=== PATIENT | male | born 1980 | race Hispanic/Latino ===

== ENCOUNTER 2018-01-03 20:45 | Emergency (ER) | payer BC ==
[2018-01-03] MEDS ORDERED: MAGNE/ALUM HYDROXD 30 ML UCUP ONE (21:15)
[2018-01-03] MEDS ORDERED: MORPHINE 4 MG/ML SYR ONE (21:16)
[2018-01-03] MEDS ORDERED: NA CHLORIDE 0.9% 1,000 ML ONE (21:16)
[2018-01-03] MEDS ORDERED: LIDOCAINE VISCOUS 2% SOLN 15 ML UDC ONE (21:16)
[2018-01-03] MEDS ORDERED: ONDANSETRON 4 MG/2 ML VIAL ONE (21:16)
[2018-01-03] MEDS ORDERED: FAMOTIDINE 20 MG/2 ML VIAL IV ONE (21:17)
[2018-01-03 21:45] LABS: Absolute Lymphocytes (CBC) 3.5 K/uL (0.7-4.9); Absolute Monocytes 0.8 K/uL (0.1-1.3); Absolute Neutrophil 5.8 K/uL (1.8-8.0); Basophils % 0.8 % (0-1.3); Eosinophils % 2.4 % (0-4.4); Hematocrit 48.9 % (39.6-49.0); Lymphocytes % 33.9 % (15.3-44.8); MCH 30.8 pg (27.0-35.0); MCV 89.1 fL (80-100); MPV 9.8 fL (7.6-11.3); Monocytes % 7.4 % (3.3-12.3); RBC Red Blood Cell Count 5.49 M/uL (4.33-5.43)
[2018-01-03 21:46] LABS: Bicarbonate 28 mEq/L (21-31); Glucose Level 130 mg/dL (65-120); Lipase 32 U/L (22-51); Potassium 3.8 mEq/L (3.6-5.0); Sodium Level 139 mEq/L (135-145)
[2018-01-03 21:53] LABS: ALT/SGPT 42 IU/L (10-60); AST/SGOT 54 IU/L (10-42); Albumin 3.8 g/dL (3.2-5.5); Alkaline Phosphatase 79 IU/L (42-121); Amylase Level 160 U/L (28-100); BUN Blood Urea Nitrogen 12 mg/dL (6-20); Bilirubin Direct 0.2 mg/dL (0-0.2); Bilirubin Total 0.8 mg/dL (0.3-1.2); Protein, Total 7.7 g/dL (6.0-8.3)
--- NOTE | 2018-01-03 21:53 | ER ---
Nurse's Notes [facility] Name: Drew Jc Age: 37 yrs Sex: Male : 1980 Arrival Date: 01/03/2018 Time: 20:50 Bed 23 Private MD: Diagnosis: Epigastric pain Presentation: 01/03 20:58 Presenting complaint: Patient states: Upper abdominal pain radiating to back that has lp1 worsened; Has been seeing Dr. Chowdhury, had colonoscopy and endoscopy recently and told lipase was elevated but to stay on clear liquid diet. Transition of care: patient was not received from another setting of care. Onset of symptoms was January 03, 2018. Risk Assessment: Do you want to hurt yourself or someone else? Patient reports no desire to harm self or others. Initial Sepsis Screen: Does the patient meet any 2 criteria? No. Patient's initial sepsis screen is negative. Does the patient have a suspected source of infection? No. Patient's initial sepsis screen is negative. Care prior to arrival: None. 20:58 Method Of Arrival: Ambulatory lp1 20:58 Acuity: COCO 3 lp1 21:03 Care prior to arrival: Medication(s) given: Simethicone 2 tabs. kr2 Historical: - Allergies: 21:02 No Known Allergies; lp1 - Home Meds: 21:02 Avapro 300 mg Oral tab 1 tab once daily [Active]; omeprazole 40 mg Oral cpDR 1 cap once lp1 daily [Active]; Synthroid 88 mcg Oral tab 1 tab once daily [Active]; metformin 750 mg Oral Tb24 1 tab once daily [Active]; Toprol XL 100 mg Oral Tb24 nightly [Active]; - PMHx: 21:02 Hypertension; Hypothyroidism; Pancreatitis; lp1 21:02 Diabetes - NIDDM; lp1 - PSHx: 21:02 Tonsillectomy; Cholecystectomy; Appendectomy; lp1 - Immunization history:: Adult Immunizations up to date. - Social history:: Patient/guardian denies using alcohol, street drugs, IV drugs, The patient lives with family, with spouse, Smoking status: Patient/guardian denies using tobacco. - Ebola Screening: : No symptoms or risks identified at this time. - Family history:: not pertinent. Screenin:02 Abuse screen: Denies threats or abuse. Denies injuries from another. Nutritional lp1 screening: No deficits noted. Tuberculosis screening: No symptoms or risk factors identified. Fall Risk None identified. Assessment: 21:05 General: Appears in no apparent distress. uncomfortable, obese, well groomed, well kr2 developed, well nourished, Behavior is calm, cooperative, appropriate for age. Pain: Complains of pain in epigastric area, right upper quadrant and left upper quadrant Pain radiates to left subscapular area, right subscapular area and thoracic area Pain currently is 8 out of 10 on a pain scale. Quality of pain is described as dull, sharp, Pain began gradually, Is continuous, Alleviated by nothing. Neuro: Level of Consciousness is awake, alert, obeys commands, Oriented to person, place, time, situation, Appropriate for age. Cardiovascular: Capillary refill < 3 seconds in bilateral fingers Patient's skin is warm and dry. Respiratory: Airway is patent Respiratory effort is even, unlabored, Respiratory pattern is regular, symmetrical. GI: Abdomen is round non-distended, Bowel sounds present X 4 quads. Abd is soft X 4 quads Abdomen is tender to palpation in right lower quadrant Reports history of pancreatitis-6 years ago. : Urine is clear. EENT: Oral mucosa is moist. Derm: Skin is intact, is healthy with good turgor, Skin is pink, warm \T\ dry. Musculoskeletal: Circulation, motion, and sensation intact. Vital Signs: 21:02 BP 197 / 97; Pulse 80; Resp 18; Temp 98.1(O); Pulse Ox 97% on R/A; Weight 136.08 kg; lp1 Height 5 ft. 9 in. (175.26 cm); Pain 8/10; 21:48 BP 147 / 76; Pulse 71; Resp 16; Pulse Ox 96% on R/A; kr2 21:02 Body Mass Index 44.30 (136.08 kg, 175.26 cm) lp1 ED Course: 20:50 Patient arrived in ED. al2 21:00 Triage completed. lp1 21:00 Connie Childs RN is Primary Nurse. kr2 21:00 Arm band placed on right wrist. lp1 21:01 Case Madison MD is Attending Physician. ma2 21:07 Patient has correct armband on for positive identification. Bed in low position. Call kr2 light in reach. Pulse ox on. NIBP on. Door closed. Verbal reassurance given. Head of bed elevated. 21:20 Inserted saline lock: 22 gauge in right antecubital area, using aseptic technique. kr2 Blood collected. 21:25 Flushed right antecubital saline lock with 2 ml normal saline IV discontinued, intact, kr2 bleeding controlled, No redness/swelling at site. Pressure dressing applied, Patient complained of pain with NS flush. 21:30 Inserted saline lock: 22 gauge in left antecubital area, using aseptic technique. IV kr2 with good blood return, Flushed left antecubital with 2 ml normal saline. 22:17 No provider procedures requiring assistance completed. rk2 Administered Medications: 21:35 Drug: Zofran 4 mg Route: IVP; Site: left antecubital; kr2 22:15 Follow up: Response: No adverse reaction rk2 21:35 Drug: Pepcid 10 mg Route: IVP; Site: left antecubital; kr2 22:15 Follow up: Response: No adverse reaction rk2 21:35 Drug: GI Cocktail without - (Maalox Suspension 30 ml, Lidocaine Liquid 2 % 15 kr2 ml) Route: PO; 22:15 Follow up: Response: No adverse reaction rk2 21:36 Drug: NS 0.9% 1000 ml Route: IV; Rate: 1 bolus; Site: left antecubital; kr2 22:16 Follow up: Response: No adverse reaction; IV Status: Completed infusion rk2 21:36 Drug: morphine 4 mg Route: IVP; Site: left antecubital; kr2 22:16 Follow up: Response: No adverse reaction rk2 Outcome: 21:52 Discharge ordered by . rishi 22:17 Discharged to home ambulatory. rk2 22:17 Condition: good 22:17 Discharge instructions given to patient, Prescriptions given X 1. 22:17 Patient left the ED. rk2 Signatures: Lara Ashby RN RN lp1 Connie Childs RN RN kr2 Zena Godoy Mohammad, MD MD ma2 Tasha Reddy RN RN rk2 Corrections: (The following items were deleted from the chart) 21:35 21:35 Pepcid 10 mg IVP in right antecubital kr2 kr2
--- NOTE | 2018-01-03 21:53 | EDPHYS ---
Physician Documentation [facility] Name: Drew Jc Age: 37 yrs Sex: Male : 1980 Arrival Date: 01/03/2018 Time: 20:50 Bed 23 Private MD: ED Physician Case Madison HPI: 01/03 21:10 This 37 yrs old Male presents to ER via Ambulatory with complaints of ma2 Abdominal Pain, Nausea, Back Pain. 21:10 The patient presents to the emergency department with nausea, vomiting, abdominal pain. ma2 Onset: The symptoms/episode began/occurred gradually, 2 day(s) ago. Possible causes: hx of alcoholic pancreatitis, he quit drinking few months ago. Associated signs and symptoms: Pertinent negatives: anorexia, belching, dysuria, flatulence, GI bleeding, hematuria, nausea, vomiting. Severity of symptoms: At their worst the symptoms were severe in the emergency department the symptoms are unchanged. The patient has experienced similar episodes in the past. Historical: - Allergies: 21:02 No Known Allergies; lp1 - Home Meds: 21:02 Avapro 300 mg Oral tab 1 tab once daily [Active]; omeprazole 40 mg Oral cpDR 1 cap once lp1 daily [Active]; Synthroid 88 mcg Oral tab 1 tab once daily [Active]; metformin 750 mg Oral Tb24 1 tab once daily [Active]; Toprol XL 100 mg Oral Tb24 nightly [Active]; - PMHx: 21:02 Hypertension; Hypothyroidism; Pancreatitis; lp1 21:02 Diabetes - NIDDM; lp1 - PSHx: 21:02 Tonsillectomy; Cholecystectomy; Appendectomy; lp1 - Immunization history:: Adult Immunizations up to date. - Social history:: Patient/guardian denies using alcohol, street drugs, IV drugs, The patient lives with family, with spouse, Smoking status: Patient/guardian denies using tobacco. - Ebola Screening: : No symptoms or risks identified at this time. - Family history:: not pertinent. ROS: 21:10 Abdomen/GI: Positive for abdominal pain. ma2 21:10 All other systems are negative. 21:53 Neck: Negative for injury, pain, and swelling. ma2 Exam: 21:10 Constitutional: This is a well developed, well nourished patient who is awake, alert, ma2 and in no acute distress. Head/Face: Normocephalic, atraumatic. Cardiovascular: Regular rate and rhythm with a normal S1 and S2. No gallops, murmurs, or rubs. Normal PMI, no JVD. No pulse deficits. Respiratory: Lungs have equal breath sounds bilaterally, clear to auscultation and percussion. No rales, rhonchi or wheezes noted. No increased work of breathing, no retractions or nasal flaring. Abdomen/GI: Soft, non-tender, with normal bowel sounds. No distension or tympany. No guarding or rebound. No evidence of tenderness throughout. Male : Normal genitalia with no discharge or lesions. MS/ Extremity: Pulses equal, no cyanosis. Neurovascular intact. Full, normal range of motion. Neuro: Awake and alert, GCS 15, oriented to person, place, time, and situation. Cranial nerves II-XII grossly intact. Motor strength 5/5 in all extremities. Sensory grossly intact. Cerebellar exam normal. Normal gait. Psych: Awake, alert, with orientation to person, place and time. Behavior, mood, and affect are within normal limits. Vital Signs: 21:02 BP 197 / 97; Pulse 80; Resp 18; Temp 98.1(O); Pulse Ox 97% on R/A; Weight 136.08 kg; lp1 Height 5 ft. 9 in. (175.26 cm); Pain 8/10; 21:48 BP 147 / 76; Pulse 71; Resp 16; Pulse Ox 96% on R/A; kr2 21:02 Body Mass Index 44.30 (136.08 kg, 175.26 cm) lp1 MDM: 21:01 Patient medically screened. ma2 21:10 Differential diagnosis: Nonspecific abd pain, gastritis, pancreatitis, viral ma2 gastroenteritis, gastroenteritis. 21:51 Data reviewed: vital signs, nurses notes, lab test result(s). Counseling: I had a ma2 detailed discussion with the patient and/or guardian regarding: the historical points, exam findings, and any diagnostic results supporting the discharge/admit diagnosis, the presence of at least one elevated blood pressure reading (>120/80) during this emergency department visit, lab results, the need for outpatient follow up. Medication response: pepcid. Response to treatment: the patient's symptoms have resolved after treatment. 01/03 21:09 Order name: Amylase, Serum ma2 01/03 21:09 Order name: Basic Metabolic Panel [facility] 01/03 21:09 Order name: CBC with Diff; Complete Time: 21:50 [facility] 01/03 21:09 Order name: Creatinine for Radiology; Complete Time: 21:50 [facility] 01/03 21:09 Order name: Hepatic Function [facility] 01/03 21:09 Order name: Lipase [facility] 01/03 21:09 Order name: IV Saline Lock; Complete Time: 21:35 [facility] 01/03 21:09 Order name: Labs collected and sent; Complete Time: 21:35 [facility] Administered Medications: 21:35 Drug: Zofran 4 mg Route: IVP; Site: left antecubital; kr2 22:15 Follow up: Response: No adverse reaction rk2 21:35 Drug: Pepcid 10 mg Route: IVP; Site: left antecubital; kr2 22:15 Follow up: Response: No adverse reaction 2 21:35 Drug: GI Cocktail without - (Maalox Suspension 30 ml, Lidocaine Liquid 2 % 15 kr2 ml) Route: PO; 22:15 Follow up: Response: No adverse reaction rk2 21:36 Drug: NS 0.9% 1000 ml Route: IV; Rate: 1 bolus; Site: left antecubital; kr2 22:16 Follow up: Response: No adverse reaction; IV Status: Completed infusion rk2 21:36 Drug: morphine 4 mg Route: IVP; Site: left antecubital; kr2 22:16 Follow up: Response: No adverse reaction 2 Disposition: 01/03/18 21:52 Discharged to Home. Impression: Epigastric pain. - Condition is Stable. - Discharge Instructions: Abdominal Pain, Adult. - Prescriptions for Pepcid 20 mg Oral Tablet - take 1 tablet by ORAL route once daily for 10 days; 10 tablet. - Medication Reconciliation Form, Thank You Letter, Antibiotic Education, Prescription Opioid Use form. - Follow up: Private Physician; When: Tomorrow; Reason: Continuance of care. - Problem is new. - Symptoms have improved. Signatures: Dispatcher [employer] EDMS Lara Ashby RN RN lp1 Connie Childs RN RN kr2 Case Madison MD MD ma2 Forsyth, Tasha, RN RN rk2 Corrections: (The following items were deleted from the chart) 22:17 21:52 01/03/2018 21:52 Discharged to Home. Impression: Epigastric pain. Condition is rk2 Stable. Forms are Medication Reconciliation Form, Thank You Letter, Antibiotic Education, Prescription Opioid Use. Follow up: Private Physician; When: Tomorrow; Reason: Continuance of care. Problem is new. Symptoms have improved. ma2
[2018-01-03 22:22] VITALS: TEMP 98.1
[2018-01-03 22:23] VITALS: BP 147/76; O2SAT 96
== END 2018-01-03 22:17 | disposition home or self-care (01) ==
LOC: ER 20:45
DX: R10.13 Epigastric pain (principal); I10 Essential (primary) hypertension; E03.9 Hypothyroidism, unspecified; E11.9 Type 2 diabetes mellitus without complications
CPT/HCPCS: 36415; 80048; 80076; 82150; 83690; 85025; 96361; 96374; 96375; 99284; J2405; J7030

== ENCOUNTER 2018-04-12 13:38 | Observation (INO) | payer BC ==
--- NOTE | 2018-04-12 14:42 | RAD REPORT ---
EXAM DESCRIPTION: Adelinat Single View04/12/2018 2:19 pm CLINICAL HISTORY: CHEST PAIN COMPARISON: Chest Single View dated 08/27/2016; FINDINGS: The lungs appear clear of acute infiltrate. The heart is normal size IMPRESSION: No acute abnormalities displayed
[2018-04-12 15:07] LABS: Absolute Lymphocytes (CBC) 2.8 K/uL (0.7-4.9); Absolute Monocytes 0.6 K/uL (0.1-1.3); Absolute Neutrophil 4.1 K/uL (1.8-8.0); Basophils % 1.1 % (0-1.3); Eosinophils % 2.2 % (0-4.4); Lymphocytes % 36.2 % (15.3-44.8); MCH 31.4 pg (27.0-35.0); MCV 92.2 fL (80-100); MPV 9.4 fL (7.6-11.3); Monocytes % 7.7 % (3.3-12.3); RBC Red Blood Cell Count 5.21 M/uL (4.33-5.43)
[2018-04-12 15:10] LABS: Protime INR 0.9
[2018-04-12] MEDS ORDERED: METOPROLOL TAR 50 MG TAB ONE (15:15)
[2018-04-12] MEDS ORDERED: NA CHLORIDE 0.9% 1,000 ML ONE (15:15)
[2018-04-12] MEDS ORDERED: ASPIRIN 81 MG CHEWABLE TABLET ONE (15:15)
[2018-04-12 15:25] LABS: ALT/SGPT 89 U/L (12-78); AST/SGOT 79 U/L (15-37); Albumin 3.1 g/dL (3.4-5.0); Alkaline Phosphatase 121 U/L (45-117); BUN Blood Urea Nitrogen 13 mg/dL (7-18); Bicarbonate 27 mmol/L (21-32); Bilirubin Direct 0.1 mg/dL (0-0.2); Bilirubin Total 0.5 mg/dL (0.2-1.0); CKMB Creatine Kinase MB 2.5 ng/mL (0.3-3.6); Creatine Phosphokinase 255 U/L (39-308); Glucose Level 200 mg/dL (74-106); Lipase 203 U/L (73-393); NT PRO-BNP 108 pg/mL (<125); Potassium 3.6 mmol/L (3.5-5.1); Protein, Total 7.4 g/dL (6.4-8.2); Sodium Level 141 mmol/L (136-145); Troponin (Emerg Dept Use Only) < 0.02 ng/mL (0.0-0.045)
--- NOTE | 2018-04-12 15:30 | ER ---
Nurse's Notes [facility] Name: Drew Jc Age: 37 yrs Sex: Male : 1980 Arrival Date: 04/12/2018 Time: 13:41 Bed 24 Private MD: Paul Herrmann B Diagnosis: Chest pain, unspecified;Essential (primary) hypertension;Obesity, unspecified Presentation: 04/12 13:42 Presenting complaint: Patient states: i couldn't get my BP controlled for 3 days and i hj have this chest tightness that started early this AM, with SOB; no radiating pain; pain is 7/10;. Transition of care: patient was not received from another setting of care. Onset of symptoms was April 12, 2018. Risk Assessment: Do you want to hurt yourself or someone else? Patient reports no desire to harm self or others. Initial Sepsis Screen: Does the patient meet any 2 criteria? No. Patient's initial sepsis screen is negative. Does the patient have a suspected source of infection? No. Patient's initial sepsis screen is negative. Care prior to arrival: None. 13:42 Method Of Arrival: Ambulatory 13:42 Acuity: COCO 3 hj Triage Assessment: 13:46 General: Appears in no apparent distress. uncomfortable, Behavior is calm, cooperative, hj appropriate for age. Pain: Complains of pain in chest. Cardiovascular: Capillary refill < 3 seconds Patient's skin is warm and dry. Historical: - Allergies: 13:45 No Known Allergies; hj - Home Meds: 13:45 Avapro 300 mg Oral tab 1 tab once daily [Active]; metformin 750 mg Oral Tb24 1 tab once hj daily [Active]; Toprol XL 100 mg Oral Tb24 nightly [Active]; Synthroid 88 mcg Oral tab 1 tab once daily [Active]; omeprazole 40 mg Oral cpDR 1 cap once daily [Active]; hydralazine 100 mg oral tab 1 tab 2 times per day [Active]; - PMHx: 13:45 Diabetes - NIDDM; Hypertension; Hypothyroidism; Pancreatitis; hj - PSHx: 13:45 Tonsillectomy; Cholecystectomy; Appendectomy; hj - Immunization history:: Adult Immunizations up to date. - Social history:: Smoking status: Smoking status: Patient/guardian denies using tobacco, Patient/guardian denies using alcohol. - Ebola Screening: : Patient negative for fever greater than or equal to 101.5 degrees Fahrenheit, and additional compatible Ebola Virus Disease symptoms Patient denies exposure to infectious person Patient denies travel to an Ebola-affected area in the 21 days before illness onset. - Family history:: not pertinent. Screenin:45 Abuse screen: Denies threats or abuse. Denies injuries from another. Nutritional hj screening: No deficits noted. Tuberculosis screening: No symptoms or risk factors identified. Fall Risk None identified. Assessment: 13:46 Pain: Pain does not radiate. Pain began 1 day ago. hj 13:50 General: Appears uncomfortable, well groomed, well developed, well nourished, Behavior tl3 is calm, cooperative, appropriate for age. Pain: Complains of pain in headache. Neuro: Level of Consciousness is awake, alert, obeys commands, Oriented to person, place, time, situation, Appropriate for age. Cardiovascular: Patient's skin is warm and dry. Respiratory: Airway is patent Respiratory effort is even, unlabored, Respiratory pattern is regular, symmetrical, Breath sounds are clear bilaterally. GI: No signs and/or symptoms were reported involving the gastrointestinal system. : No signs and/or symptoms were reported regarding the genitourinary system. EENT: No signs and/or symptoms were reported regarding the EENT system. Derm: No signs and/or symptoms reported regarding the dermatologic system. Vital Signs: 13:46 BP 187 / 87; Pulse 74; Resp 18; Temp 98.2(TE); Pulse Ox 96% on R/A; Weight 136.53 kg; hj Height 5 ft. 9 in. (175.26 cm); Pain 7/10; 13:50 BP 134 / 122; Pulse 74; Resp 16; Pulse Ox 97% on R/A; tl3 14:02 BP 165 / 86 LA Supine (auto/lg); Pulse 75; Resp 25 S; Temp 98.2(O); Pulse Ox 95% on jp3 R/A; Pain 7/10; 15:00 BP 161 / 67 LA Supine (auto/lg); Pulse 75; Resp 24; Pulse Ox 95% on R/A; jp3 15:00 BP 153 / 80; Pulse 67; Resp 18; Pulse Ox 97% on R/A; tl3 13:46 Body Mass Index 44.45 (136.53 kg, 175.26 cm) hj ED Course: 13:41 Patient arrived in ED. sb2 13:41 Paul Herrmann MD is Private Physician. sb2 13:44 Triage completed. hj 13:46 Arm band placed on left wrist. hj 13:46 Patient has correct armband on for positive identification. Placed in gown. Bed in low hj position. Call light in reach. campus monitor on. Pulse ox on. NIBP on. 13:46 Patient maintains SpO2 saturation greater than 95% on room air. hj 13:55 EKG done, by ED staff, reviewed by Froylan Mariee MD. jp3 14:02 Jena Short, PRATEEK is Primary Nurse. tl3 14:03 Froylan Mariee MD is Attending Physician. brooke 14:06 Side rails up X 1. jp3 14:17 X-ray completed. Portable x-ray completed in exam room. Patient tolerated procedure ml well. 14:18 XRAY Chest (1 view) In Process Unspecified. EDMS 14:40 Inserted saline lock: 20 gauge in right antecubital area, using aseptic technique. jp3 Blood collected. 14:40 Initial lab(s) drawn, by wa, sent to lab. jp3 15:00 No provider procedures requiring assistance completed. Patient admitted, IV remains in tl3 place. 15:15 Lipase Sent. jp3 15:15 Basic Metabolic Panel Sent. jp3 15:15 Ckmb Sent. jp3 15:15 CPK Sent. jp3 15:15 LFT's Sent. jp3 15:15 Magnesium Sent. jp3 15:15 NT PRO-BNP Sent. jp3 15:15 Troponin (emerg Dept Use Only) Sent. jp3 15:20 Urine collected: clean catch specimen, clear, marcella colored, Amount Voided: 40mL. jp3 15:28 Jenn Tolentino MD is Hospitalizing Provider. brooke 16:19 Patient taken to ultrasound. via wheelchair. lc3 16:48 Ultrasound completed. Patient tolerated well. Patient moved back from ultrasound. lc3 19:04 US Abdomen Limited Sent. tl3 19:04 Urine Dipstick--Ancillary (enter results) Sent. tl3 Administered Medications: 15:12 Drug: Aspirin 162 mg Route: PO; dm5 16:24 Follow up: Response: No adverse reaction tl3 15:14 Drug: Lopressor (metoprolol TARTRATE) 50 mg Route: PO; dm5 16:25 Follow up: Response: Blood pressure is lowered tl3 15:15 Drug: NS 0.9% 1000 ml Route: IV; Rate: 125 ml/hr; Site: right antecubital; dm5 17:38 Follow up: IV Status: Infusion continued upon admission tl3 15:36 Drug: HydrALAZINE 50 mg Route: PO; dm5 16:24 Follow up: Response: No adverse reaction tl3 15:38 Drug: Zofran 4 mg Route: IVP; Site: right antecubital; dm5 16:25 Follow up: Response: No adverse reaction tl3 15:40 Drug: fentaNYL (PF) 50 mcg Route: IVP; Site: right antecubital; dm5 16:25 Follow up: Response: No adverse reaction; Pain is decreased tl3 17:39 Drug: Lovenox 100 mg Route: Sub-Q; Site: abdomen; tl3 19:06 Follow up: Response: No adverse reaction tl3 Outcome: 15:29 Decision to Hospitalize by Provider. brooke 17:36 Admitted to Tele accompanied by tech, via wheelchair, with chart, Report called to tl3 Miguelina CHANDRA 17:36 Condition: stable 18:22 Patient left the ED. tl3 Signatures: Dispatcher [employer] EDYesenia Sykes, RN RN dmFroylan Parry MD MD cha Lopez, Melissa ml Joaquin, Henry, RN RN Simon Blakely Sheri sb2 Jena Short RN RN tl3 Bryan Multani jp3 Corrections: (The following items were deleted from the chart) 13:48 13:46 Pulse 74bpm; Resp 18bpm; Pulse Ox 96% RA; Temp 98.2F Temporal; 136.53 kg; Height hj 5 ft. 9 in.; BMI: 44.4; Pain 7/10; hj
--- NOTE | 2018-04-12 15:30 | EDPHYS ---
Physician Documentation [facility] Name: Drew Jc Age: 37 yrs Sex: Male : 1980 Arrival Date: 04/12/2018 Time: 13:41 Bed 24 Private MD: Paul Herrmann B ED Physician Froylan Mariee HPI: 04/12 15:25 This 37 yrs old Male presents to ER via Ambulatory with complaints of Blood brooke Pressure Problem, Chest Tightness. 15:25 The patient or guardian reports chest pain that is located primarily in the substernal brooke area, anterior chest wall. The pain does not radiate. Associated signs and symptoms: The patient has no apparent associated signs or symptoms. The chest pain is described as a pressure. Duration: The patient or guardian reports a single episode, that is still ongoing. Modifying factors: The symptoms are alleviated by nothing. the symptoms are aggravated by nothing. Severity of pain: At its worst the pain was mild in the emergency department the pain has resolved and did so just prior to arrival. The patient has experienced similar episodes in the past, a few times. Historical: - Allergies: 13:45 No Known Allergies; hj - Home Meds: 13:45 Avapro 300 mg Oral tab 1 tab once daily [Active]; metformin 750 mg Oral Tb24 1 tab once hj daily [Active]; Toprol XL 100 mg Oral Tb24 nightly [Active]; Synthroid 88 mcg Oral tab 1 tab once daily [Active]; omeprazole 40 mg Oral cpDR 1 cap once daily [Active]; hydralazine 100 mg oral tab 1 tab 2 times per day [Active]; - PMHx: 13:45 Diabetes - NIDDM; Hypertension; Hypothyroidism; Pancreatitis; hj - PSHx: 13:45 Tonsillectomy; Cholecystectomy; Appendectomy; hj - Immunization history:: Adult Immunizations up to date. - Social history:: Smoking status: Smoking status: Patient/guardian denies using tobacco, Patient/guardian denies using alcohol. - Ebola Screening: : Patient negative for fever greater than or equal to 101.5 degrees Fahrenheit, and additional compatible Ebola Virus Disease symptoms Patient denies exposure to infectious person Patient denies travel to an Ebola-affected area in the 21 days before illness onset. - Family history:: not pertinent. ROS: 15:25 Constitutional: Negative for fever, chills, and weight loss, Eyes: Negative for injury, brooke pain, redness, and discharge, ENT: Negative for injury, pain, and discharge, Neck: Negative for injury, pain, and swelling, Respiratory: Negative for shortness of breath, cough, wheezing, and pleuritic chest pain, Abdomen/GI: Negative for abdominal pain, nausea, vomiting, diarrhea, and constipation, Back: Negative for injury and pain, : Negative for injury, bleeding, discharge, and swelling, MS/Extremity: Negative for injury and deformity, Skin: Negative for injury, rash, and discoloration, Neuro: Negative for headache, weakness, numbness, tingling, and seizure, Psych: Negative for depression, anxiety, suicide ideation, homicidal ideation, and hallucinations, Allergy/Immunology: Negative for hives, rash, and allergies, Endocrine: Negative for neck swelling, polydipsia, polyuria, polyphagia, and marked weight changes, Hematologic/Lymphatic: Negative for swollen nodes, abnormal bleeding, and unusual bruising. 15:25 Cardiovascular: Positive for chest pain, of the chest. 15:25 Neuro: Positive for headache. Exam: 15:25 Constitutional: This is a well developed, well nourished patient who is awake, alert, brooke and in no acute distress. Head/Face: Normocephalic, atraumatic. Eyes: Pupils equal round and reactive to light, extra-ocular motions intact. Lids and lashes normal. Conjunctiva and sclera are non-icteric and not injected. Cornea within normal limits. Periorbital areas with no swelling, redness, or edema. ENT: Nares patent. No nasal discharge, no septal abnormalities noted. Tympanic membranes are normal and external auditory canals are clear. Oropharynx with no redness, swelling, or masses, exudates, or evidence of obstruction, uvula midline. Mucous membranes moist. Neck: Trachea midline, no thyromegaly or masses palpated, and no cervical lymphadenopathy. Supple, full range of motion without nuchal rigidity, or vertebral point tenderness. No Meningismus. Chest/axilla: Normal chest wall appearance and motion. Nontender with no deformity. No lesions are appreciated. Cardiovascular: Regular rate and rhythm with a normal S1 and S2. No gallops, murmurs, or rubs. Normal PMI, no JVD. No pulse deficits. Respiratory: Lungs have equal breath sounds bilaterally, clear to auscultation and percussion. No rales, rhonchi or wheezes noted. No increased work of breathing, no retractions or nasal flaring. Abdomen/GI: Soft, non-tender, with normal bowel sounds. No distension or tympany. No guarding or rebound. No evidence of tenderness throughout. Back: No spinal tenderness. No costovertebral tenderness. Full range of motion. Male : Normal genitalia with no discharge or lesions. Skin: Warm, dry with normal turgor. Normal color with no rashes, no lesions, and no evidence of cellulitis. MS/ Extremity: Pulses equal, no cyanosis. Neurovascular intact. Full, normal range of motion. Neuro: Awake and alert, GCS 15, oriented to person, place, time, and situation. Cranial nerves II-XII grossly intact. Motor strength 5/5 in all extremities. Sensory grossly intact. Cerebellar exam normal. Normal gait. Psych: Awake, alert, with orientation to person, place and time. Behavior, mood, and affect are within normal limits. Vital Signs: 13:46 BP 187 / 87; Pulse 74; Resp 18; Temp 98.2(TE); Pulse Ox 96% on R/A; Weight 136.53 kg; hj Height 5 ft. 9 in. (175.26 cm); Pain 7/10; 13:50 BP 134 / 122; Pulse 74; Resp 16; Pulse Ox 97% on R/A; tl3 14:02 BP 165 / 86 LA Supine (auto/lg); Pulse 75; Resp 25 S; Temp 98.2(O); Pulse Ox 95% on jp3 R/A; Pain 7/10; 15:00 BP 161 / 67 LA Supine (auto/lg); Pulse 75; Resp 24; Pulse Ox 95% on R/A; jp3 15:00 BP 153 / 80; Pulse 67; Resp 18; Pulse Ox 97% on R/A; tl3 13:46 Body Mass Index 44.45 (136.53 kg, 175.26 cm) MDM: 14:03 Patient medically screened. [facility] 15:27 Data reviewed: vital signs, nurses notes, lab test result(s), EKG, radiologic studies, [facility] CT scan, plain films. 04/12 14:04 Order name: Basic Metabolic Panel; Complete Time: 15:34 [facility] 04/12 14:04 Order name: CBC with Diff; Complete Time: 15:34 [facility] 04/12 14:04 Order name: Ckmb; Complete Time: 15:34 [facility] 04/12 14:04 Order name: CPK; Complete Time: 15:34 [facility] 04/12 14:04 Order name: LFT's; Complete Time: 15:34 [facility] 04/12 14:04 Order name: Magnesium; Complete Time: 15:34 [facility] 04/12 14:04 Order name: NT PRO-BNP; Complete Time: 15:34 [facility] 04/12 14:04 Order name: PT-INR; Complete Time: 15:34 [facility] 04/12 14:04 Order name: Ptt, Activated; Complete Time: 15:34 [facility] 04/12 14:04 Order name: Troponin (emerg Dept Use Only); Complete Time: 15:34 [facility] 04/12 14:04 Order name: Lipase; Complete Time: 15:34 [facility] 04/12 15:36 Order name: Urine Dipstick--Ancillary (enter results) [facility] 04/12 15:49 Order name: Urine Dipstick-Ancillary; Complete Time: 16:15 [facility] 04/12 14:04 Order name: XRAY Chest (1 view); Complete Time: 15:34 [facility] 04/12 15:25 Order name: CT Head Brain wo Cont [facility] 04/12 15:48 Order name: US Abdomen Limited [facility] 04/12 16:22 Order name: CT; Complete Time: 16:49 [facility] 04/12 17:10 Order name: US [facility] 04/12 13:49 Order name: EKG; Complete Time: 13:49 04/12 15:33 Order name: CONS Physician Consult; Complete Time: 19:05 [facility] 04/12 14:04 Order name: Cardiac monitoring; Complete Time: 14:08 [facility] 04/12 14:04 Order name: EKG - Nurse/Tech; Complete Time: 14:08 [facility] 04/12 14:04 Order name: IV Saline Lock; Complete Time: 15:15 [facility] 04/12 14:04 Order name: Labs collected and sent; Complete Time: 15:15 [facility] 04/12 14:04 Order name: O2 Per Protocol; Complete Time: 14:08 [facility] 04/12 14:04 Order name: O2 Sat Monitoring; Complete Time: 14:08 [facility] 04/12 14:04 Order name: Urine Dipstick-Ancillary (obtain specimen); Complete Time: 15:30 brooke Administered Medications: 15:12 Drug: Aspirin 162 mg Route: PO; dm5 16:24 Follow up: Response: No adverse reaction tl3 15:14 Drug: Lopressor (metoprolol TARTRATE) 50 mg Route: PO; dm5 16:25 Follow up: Response: Blood pressure is lowered tl3 15:15 Drug: NS 0.9% 1000 ml Route: IV; Rate: 125 ml/hr; Site: right antecubital; dm5 17:38 Follow up: IV Status: Infusion continued upon admission tl3 15:36 Drug: HydrALAZINE 50 mg Route: PO; dm5 16:24 Follow up: Response: No adverse reaction tl3 15:38 Drug: Zofran 4 mg Route: IVP; Site: right antecubital; dm5 16:25 Follow up: Response: No adverse reaction tl3 15:40 Drug: fentaNYL (PF) 50 mcg Route: IVP; Site: right antecubital; dm5 16:25 Follow up: Response: No adverse reaction; Pain is decreased tl3 17:39 Drug: Lovenox 100 mg Route: Sub-Q; Site: abdomen; tl3 19:06 Follow up: Response: No adverse reaction tl3 Disposition: 04/12/18 15:29 Hospitalization ordered by Jenn Tolentino for Observation. Preliminary diagnosis are Chest pain, unspecified, Essential (primary) hypertension, Obesity, unspecified. - Bed requested for Telemetry/MedSurg (observation). - Status is Observation. tl3 - Condition is Fair. - Problem is new. - Symptoms have improved. UTI on Admission? No Signatures: Dispatcher [employer] EDNM Yesenia Maddox RN RN dm5 Froylan Mariee MD MD cha Martinez, Eric em1 Cristopher Schuler RN RN hj Garcia, Cindy, RN RN Jena Short RN RN tl3 Corrections: (The following items were deleted from the chart) 15:48 15:29 Hospitalization Ordered by Jenn Tolentino MD for Observation. Preliminary [facility] diagnosis is Chest pain, unspecified; Essential (primary) hypertension. Bed requested for Telemetry/MedSurg (observation). Status is Observation. Condition is Fair. Problem is new. Symptoms have improved. UTI on Admission? No. brooke 15:53 15:48 04/12/2018 15:29 Hospitalization Ordered by Jenn Tolentino MD for Observation. em1 Preliminary diagnosis is Chest pain, unspecified; Essential (primary) hypertension; Obesity, unspecified. Bed requested for Telemetry/MedSurg (observation). Status is Observation. Condition is Fair. Problem is new. Symptoms have improved. UTI on Admission? No. brooke 16:02 15:53 04/12/2018 15:29 Hospitalization Ordered by Jenn Tolentino MD for Observation. cg Preliminary diagnosis is Chest pain, unspecified; Essential (primary) hypertension; Obesity, unspecified. Bed requested for Telemetry/MedSurg (observation). Status is Observation. Condition is Fair. Problem is new. Symptoms have improved. UTI on Admission? No. em1 18:22 16:02 04/12/2018 15:29 Hospitalization Ordered by Jenn Tolentino MD for Observation. tl3 Preliminary diagnosis is Chest pain, unspecified; Essential (primary) hypertension; Obesity, unspecified. Bed requested for Telemetry/MedSurg (observation). Status is Observation. Condition is Fair. Problem is new. Symptoms have improved. UTI on Admission? No. cg
[2018-04-12] MEDS ORDERED: HYDRALAZINE HCL 10 MG TABLET ONE (15:36)
[2018-04-12] MEDS ORDERED: ONDANSETRON 4 MG/2 ML VIAL ONE (15:43)
[2018-04-12] MEDS ORDERED: FENTANYL CITR 100 MCG/2 ML ONE (15:43)
[2018-04-12 15:48] LABS: Urine Blood NEGATIVE (NEG); Urine Glucose 2+ (NEG); Urine Protein 1+ (NEG); Urine Specific Gravity 1.015 (1.005-1.030)
--- NOTE | 2018-04-12 16:21 | RAD REPORT ---
EXAM DESCRIPTION: CT - Head Brain Wo Cont - 04/12/2018 4:14 pm CLINICAL HISTORY: HEADACHE COMPARISON: HEAD BRAIN W O CONTRAST dated 04/01/2012 TECHNIQUE: Computed axial tomography of the head was obtained. IV contrast was not requested. All CT scans are performed using dose optimization technique as appropriate and may include automated exposure control or mA/KV adjustment according to patient size. FINDINGS: An intracranial bleed is not seen . The ventricles are normal in caliber. No extra-axial fluid collection is noted. . Mild opacification ethmoid sinus is seen. Fluid within the mastoids is not noted. IMPRESSION: No acute intracranial abnormality is seen. If patient's symptoms persist MRI of the bra in would be recommended. Mild ethmoid sinusitis
--- NOTE | 2018-04-12 16:40 | P.HP ---
Certification for Inpatient Patient admitted to: Observation With expected LOS: <2 Midnights Patient will require the following post-hospital care: None Practitioner: I am a practitioner with admitting privileges, knowledge of patient current condition, hospital course, and medical plan of care. Services: Services provided to patient in accordance with Admission requirements found in Title 42 Section 412.3 of the Code of Federal Regulations Patient History Date of Service: 04/12/18 Primary Care Provider: Dr Herrmann Reason for admission: MARTINEZ and HTN History of Present Illness: 37 y/o m with PMHX of HTN who presented to the ED with complains of having MARTINEZ and BP that has not been controlled for past 3 days. Pt states his BP has been running 180-190/90-100 at home. He took his regular medication Metoprolol 100mg BID and took extra of his dad Hydralazine as well to lower his BP. He has been also having some MARTINEZ with elevated BP. Denies any SOB, N, V, abd pain or diarrhea or any other complains at this time. He does state he has been having some Chest discomfort which started this AM. He has also been taking 2000mg tylenol for over a month now for his MARTINEZ. In the ER pt was found to have BP that was elevated and LFT's there were elevated and thus was admitted for further workup. Allergies No Known Allergies Allergy (Unverified 04/01/12 18:23) Review of Systems 10-point ROS is otherwise unremarkable Physical Examination - Physical Exam General: Alert, In no apparent distress HEENT: Atraumatic, PERRLA, Mucous membr. moist/pink, EOMI, Sclerae nonicteric Neck: Supple, 2+ carotid pulse no bruit, No LAD, Without JVD or thyroid abnormality Respiratory: Clear to auscultation bilaterally, Normal air movement Cardiovascular: Regular rate/rhythm, Normal S1 S2 Gastrointestinal: Normal bowel sounds, No tenderness Musculoskeletal: No tenderness Integumentary: No rashes Neurological: Normal gait, Normal speech, Normal strength at 5/5 x4 extr, Normal tone, Normal affect Lymphatics: No axilla or inguinal lymphadenopathy - Studies Laboratory Data (last 24 hrs) 04/12/18 14:45: PT 10.6, INR 0.90, APTT 32.1 04/12/18 14:45: WBC 7.7, Hgb 16.3, Hct 48.0, Plt Count 188 04/12/18 14:45: Sodium 141, Potassium 3.6, BUN 13, Creatinine 0.90, Glucose 200 H, Magnesium 2.0, Total Bilirubin 0.5, AST 79 H, ALT 89 H, Alkaline Phosphatase 121 H, Lipase 203 Assessment and Plan - Problems (Diagnosis) (1) Elevated LFTs Current Visit: Yes Status: Chronic Plan: With Recent injection of tylenol 2000mg Daily everyday for past month. Tylenol toxicity is of concern. -Tylenol level is pending at this time -ABD US is pending as well. -Pt has a h/o Bhumi in the past. -Quit Drinking 8 yrs ago and Denies smoking -UDS is also pending. (2) HTN (hypertension) Current Visit: Yes Status: Acute Plan: HTN urgency. Now resolved in ER. BP here in the hospital is 150-90. -Will restart home medication -Will monitor BP closely Qualifiers: Hypertension type: essential hypertension Qualified Code(s): I10 - Essential (primary) hypertension - Plan Admitted to med surg for observation for LFT's in lieu of tylenol ingestion - Advance Directives Does patient have a Living Will: No Does patient have a Durable POA for Healthcare: No - Code Status/Comfort Care Code Status Assessed: Yes Critical Care: No
--- NOTE | 2018-04-12 17:08 | RAD REPORT ---
EXAM DESCRIPTION: US - Liver Only - 04/12/2018 4:47 pm CLINICAL HISTORY: ABD PAIN, elev connor enzymes< COMPARISON: none FINDINGS: The liver has a considerably increased echotexture. This limits evaluation for lesions. Th e liver is normal size. Hepatopetal flow is present The spleen measures 12 centimeters. IMPRESSION: Considerably increased hepatic echotexture consistent with fatty infiltration. Spleen is probably upper limits normal size
[2018-04-12] MEDS ORDERED: ENOXAPARIN 100 MG/ML SYR SQ ONE (17:44)
[2018-04-12] MEDS ORDERED: ONDANSETRON 4 MG/2 ML VIAL IV PRN (18:03)
[2018-04-12] MEDS: INSULIN -REGULAR HUMAN 50 UNIT/0.5 ML ML SQ SCH ×2 (18:03→21:00)
[2018-04-12 18:10] VITALS: BMI 43.9
[2018-04-12 18:44] LABS: Troponin I 0.02 ng/mL (0.0-0.045)
[2018-04-12 18:59] LABS: Urine Appearance CLEAR; Urine Bilirubin NEGATIVE (NEG); Urine Blood NEGATIVE (NEG); Urine Color YELLOW; Urine Glucose 3+ (NEG); Urine Protein 2+ (NEG); Urine Specific Gravity >=1.030 (1.005-1.030); Urine pH 6.5 (5.0-7.0)
[2018-04-12 19:01] LABS: Urine Microscopic Reflex ORDER UMIC
[2018-04-12 19:06] LABS: Barbiturates NEGATIVE (NEGATIVE); Benzodiazepines NEGATIVE (NEGATIVE); Cocaine NEGATIVE (NEGATIVE); METHAMPHETAM NEGATIVE (NEGATIVE); Methadone NEGATIVE (NEGATIVE); Opiates NEGATIVE (NEGATIVE); Phencyclidine NEGATIVE (NEGATIVE); THC Cannibis NEGATIVE (NEGATIVE)
[2018-04-12 19:08] LABS: Urine Bacteria <20 /HPF (NONE SEEN); Urine Culture Reflex Order NOT NEEDED; Urine RBC <5 /HPF (NONE SEEN)
[2018-04-12] MEDS ORDERED: POTASSIUM 25 MEQ EFFERV TAB PO ONE (20:00)
[2018-04-12] MEDS ORDERED: METOPROLOL XL 100 MG TAB PO SCH (21:00)
[2018-04-12] MEDS ORDERED: GABAPENTIN 400 MG CAP PO SCH (21:00)
[2018-04-12] MEDS ORDERED: GABAPENTIN 100 MG CAP PO SCH (21:00)
[2018-04-12] MEDS ORDERED: ACETAMINOPHEN 500 MG TAB PO PRN (21:12)
[2018-04-13 03:21] VITALS: O2SAT 95
[2018-04-13 04:57] VITALS: TEMP 96.8
[2018-04-13 05:11] LABS: Absolute Lymphocytes (CBC) 3.3 K/uL (0.7-4.9); Absolute Monocytes 0.7 K/uL (0.1-1.3); Absolute Neutrophil 3.5 K/uL (1.8-8.0); Basophils % 1.1 % (0-1.3); Eosinophils % 3.2 % (0-4.4); Hematocrit 44.8 % (39.6-49.0); Lymphocytes % 42.1 % (15.3-44.8); MCH 31.8 pg (27.0-35.0); MCV 91.2 fL (80-100); MPV 9.7 fL (7.6-11.3); Monocytes % 8.6 % (3.3-12.3); RBC Red Blood Cell Count 4.91 M/uL (4.33-5.43)
[2018-04-13 05:37] LABS: ALT/SGPT 68 U/L (12-78); AST/SGOT 59 U/L (15-37); Albumin 2.8 g/dL (3.4-5.0); Alkaline Phosphatase 97 U/L (45-117); BUN Blood Urea Nitrogen 15 mg/dL (7-18); Bicarbonate 27 mmol/L (21-32); Bilirubin Total 0.5 mg/dL (0.2-1.0); Glucose Level 134 mg/dL (74-106); HDL Cholesterol 22 mg/dL (40-60); LDL Cholesterol, Calculated ND (<130); Magnesium 1.9 mg/dL (1.8-2.4); Phosphorus 3.6 mg/dL (2.5-4.9); Potassium 3.7 mmol/L (3.5-5.1); Protein, Total 6.6 g/dL (6.4-8.2); Sodium Level 139 mmol/L (136-145)
[2018-04-13 05:50] LABS: LDL, Direct 89 mg/dL (100-129)
[2018-04-13] MEDS ORDERED: LEVOTHYROXINE SOD 0.088 MG TAB PO SCH (06:30)
[2018-04-13] MEDS ORDERED: POTASSIUM CL SA 10 MEQ TAB PO ONE ×2 (06:46→09:00)
--- NOTE | 2018-04-13 07:09 | EKG ---
Test Date: 2018-04-12 Test Time: 13:55:20 Router Operator Pin: HA MEASUREMENT RESULTS: Intervals: Rate: 69 ME: 162 QRSD: 132 QT: 402 QTc: 430 [place]: P: 39 ME: 162 QRS: -70 T: -55 INTERPRETIVE STATEMENTS: Normal sinus rhythm Left axis deviation Right bundle branch block Minimal voltage criteria for LVH, may be normal variant T wave abnormality, consider inferolateral ischemia Abnormal ECG Compared to ECG 08/27/2016 11:19:34 Left ventricular hypertrophy now present T-wave abnormality now present Possible ischemia now present Electronically Signed On 04-13-18 07:08:28 CDT by Chicho Martinez
[2018-04-13] MEDS: INSULIN -REGULAR HUMAN 50 UNIT/0.5 ML ML SQ SCH ×2 (07:30→11:30)
[2018-04-13 08:28] VITALS: BP 148/8
[2018-04-13] MEDS ORDERED: IRBESARTAN 150 MG TAB PO SCH (09:00)
[2018-04-13] MEDS ORDERED: REGADENOSON 0.4 MG/5 ML SYR IV ONE (09:15)
--- NOTE | 2018-04-13 11:06 | RAD REPORT ---
EXAM DESCRIPTION: NM - Rest Stress Cardiac Imaging - 04/13/2018 11:00 am CLINICAL HISTORY: CP Chest pain. COMPARISON: No comparisons TECHNIQUE: The patient was administered approximately 10mCi of Tc 99m Sestamibi prior to resting SPE CT imaging of the heart. The patient was then administered approximately 30 mCi of Tc 99m Sestamibi f ollowing exercise or pharmacologic stress. Multiplanar SPECT images were reviewed. FINDINGS: No stress induced ischemic defect is seen to suggest stress induced ischemia. No fixed def ect is seen to suggest hibernating myocardium or scarred myocardium. The end diastolic volume is 126 ml, the end systolic volume is 54 ml, and the ejection fraction is 57 %. IMPRESSION: No stress induced ischemia.
--- NOTE | 2018-04-13 12:42 | P.SSS ---
Patient History Date of Service: 04/13/18 Primary Care Provider: Dr Herrmann Reason for admission: MARTINEZ and HTN History of Present Illness: 37 y/o m with PMHX of HTN who presented to the ED with complains of having MARTINEZ and BP that has not been controlled for past 3 days. Pt states his BP has been running 180-190/90-100 at home. He took his regular medication Metoprolol 100mg BID and took extra of his dad Hydralazine as well to lower his BP. He has been also having some MARTINEZ with elevated BP. Denies any SOB, N, V, abd pain or diarrhea or any other complains at this time. He does state he has been having some Chest discomfort which started this AM. He has also been taking 2000mg tylenol for over a month now for his MARTINEZ. In the ER pt was found to have BP that was elevated and LFT's there were elevated and thus was admitted for further workup. Allergies No Known Allergies Allergy (Unverified 04/01/12 18:23) Home Medications: Butalb/Acetaminophen/Caffeine [Aftggw-Eddacbrw-Lpdm 50-300-40] 1 cap PO DAILYPRN PRN 04/12/18 Empagliflozin/Metformin HCl [Synjardy Xr 12.5-1,000 mg Tab] 1 tab PO DAILY 04/12 Gabapentin [Neurontin*] 100 mg PO BEDTIME 04/12/18 Gabapentin [Neurontin] 800 mg PO BEDTIME 04/12/18 Guanfacine HCl [Guanfacine HCl ER] 4 mg PO DAILY 04/12/18 Irbesartan [Avapro*] 300 mg PO DAILY 04/12/18 Levothyroxine [Synthroid*] 0.088 mg PO 0630 04/12/18 Metoprolol Succinate [Toprol Xl] 100 mg PO BEDTIME 04/12/18 Omeprazole [Prilosec] 40 mg PO DAILY 04/12/18 Rosuvastatin [Crestor*] 5 mg PO BEDTIME 04/12/18 - Past Medical/Surgical History Has patient received pneumonia vaccine in the past: No Diabetic: Yes -: NIDDM -: HTN -: hypothyroidism -: pancreatitis -: hyperlipidemia -: tonsillectomy -: paolo -: appe - Family History Father -: Heart disease, Hypertension, Diabetes, Kidney disease Mother -: Hypertension, Diabetes, Cancer Notes: pancreatic cancer Brother -: Hypertension, Diabetes - Social History Smoking Status: Former smoker Alcohol use: No CD- Drugs: No Caffeine use: Yes Place of Residence: Home Review of Systems 10-point ROS is otherwise unremarkable Physical Examination - Vital Signs Temperature: 96.8 F Blood Pressure: 148/8 Pulse: 54 Respirations: 18 Pulse Ox (%): 95 - Physical Exam General: Alert, In no apparent distress HEENT: Atraumatic, PERRLA, Mucous membr. moist/pink, EOMI, Sclerae nonicteric Neck: Supple, 2+ carotid pulse no bruit, No LAD, Without JVD or thyroid abnormality Respiratory: Clear to auscultation bilaterally, Normal air movement Cardiovascular: Regular rate/rhythm, Normal S1 S2 Gastrointestinal: Normal bowel sounds, No tenderness Musculoskeletal: No tenderness Integumentary: No rashes Neurological: Normal gait, Normal speech, Normal strength at 5/5 x4 extr, Normal tone, Normal affect Lymphatics: No axilla or inguinal lymphadenopathy - Studies Laboratory Data (last 24 hrs) 04/12/18 14:45: PT 10.6, INR 0.90, APTT 32.1 04/12/18 14:45: WBC 7.7, Hgb 16.3, Hct 48.0, Plt Count 188 04/12/18 14:45: Sodium 141, Potassium 3.6, BUN 13, Creatinine 0.90, Glucose 200 H, Magnesium 2.0, Total Bilirubin 0.5, AST 79 H, ALT 89 H, Alkaline Phosphatase 121 H, Lipase 203 - Diagnosis (Problem(s)) (1) Elevated LFTs Current Visit: Yes Status: Chronic Plan: Improved significantly most likely elevated due to fatty infiltration. Patient needs to be on a low fat diet along with low triglyceride diet. (2) HTN (hypertension) Current Visit: Yes Status: Acute Qualifiers: Hypertension type: essential hypertension Qualified Code(s): I10 - Essential (primary) hypertension Treatment Summary: Overall during the hospital stay patient remained stable Patient initially admitted to the hospital for hypertensive urgency and possible Tylenol toxicity. Patient's liver enzymes did improved while here in the hospital. Patient was educated extensively on not taking Tylenol at the could cause him to have liver failure. Patient does have fatty infiltration and thus was also educated on eating a diet that is low in triglycerides. For patient's high blood pressure patient's BP remained within normal limits here in the hospital. Patient was asked to take a log of blood pressure to his primary care provider and make some dietary changes and if need be another agent can be added by his primary care depending on the blood pressure readings. - Disposition Disposition: ROUTINE DISCHARGE Condition: GOOD Patient Discharge Instructions: Please followup with the primary care provider in about 1-2 days post discharge. You admitted to the hospital for high blood pressure and Tylenol toxicity. Your liver enzymes did trend down today and near echocardiogram and stress test were negative. You do however have fatty infiltration in your liver and need to be on a low triglyceride diet. No new medications needed at this time. Resume you home medication. Need to follow up with primary care provider to see if he needs to have any other blood pressure medicine added to your regimen. Diet: Regular Activity: Ad frank
--- NOTE | 2018-04-13 12:53 | ECHO ---
HEIGHT: 5 ft 9 in WEIGHT: 297 lb 12.8 oz DATE OF STUDY: 04/13/[address]: Chicho Martinez MD 2-DIMENSIONAL: YES M.MODE: YES DOPPLER: YES COLOR FLOW: YES TDS: NO PORTABLE: NO DEFINITY: NO BUBBLE STUDY: NO DIAGNOSIS: CHEST PAIN CARDIAC HISTORY: CATHERIZATION: NO SURGERY: NO PROSTHETIC VALVE: NO PACEMAKER: NO MEASUREMENTS (cm) DIASTOLIC (NORMALS) SYSTOLIC (NORMALS) IVSd 1.4 (0.6-1.2) LA Diam 3.5 (1.9-4.0) LVEF 74% LVIDd 4.1 (3.5-5.7) LVIDs 2.3 (2.0-3.5) %FS 43% LVPWd 1.6 (0.6-1.2) Ao Diam 2.9 (2.0-3.7) 2 DIMENSIONAL ASSESSMENT: RIGHT ATRIUM: NORMAL LEFT ATRIUM: NORMAL RIGHT VENTRICLE: NORMAL LEFT VENTRICLE: LEFT VENTRICULAR HYPERTROPHY TRICUSPID VALVE: NORMAL MITRAL VALVE: NORMAL PULMONIC VALVE: NORMAL AORTIC VALVE: NORMAL PERICARDIAL EFFUSION: NONE AORTIC ROOT: NORMAL LEFT VENTRICULAR WALL MOTION: NORMAL. DOPPLER/COLOR FLOW: NORMAL. COMMENTS: CONCENTRIC LEFT VENTRICULAR HYPERTROPHY. NORMAL EJECTION FRACTION. NO WALL MOTION ABNORMALITY. NO EFFUSION. TECHNOLOGIST: JOSE VENTURA
--- NOTE | 2018-04-13 13:56 | TREADPHA ---
DX: CHEST PAIN Date of Study: 04/13/2018 Ht: 5 9 Wt: 297 lb 12.8 oz Consulting Physician: LOLA MEDICATIONS: NUERONTIN, NOVOLIN-R, AVAPRO, SYNTHROID, TOPROL XC, ZOFRAN. HISTORY: 37 YEAR OLD MALE HERE FOR CHEST PAIN. HISTORY OF DIABETES, HYPERTENSION, HYPOTHYROIDISM, PANCREATITIS. PHYSICIAL EXAMINATION: RESTING B.P.: 144/81 RESTING H.R.: 58 RESTING EKG: RIGHT BUNDLE BRANCH BLOCK, NORMAL SINUS RHYTHM. PROTOCOL: LEXISCAN EXERCISE TIME: 3:30 B.P. AT PEAK STRESS: 140/77 IMPRESSION: LEXISCAN STRESS TEST PERFORMED. CARDIOLITE INJECTED PER PROTOCOL. NO ARRHYTHMIAS NOTED. DENIES ANY CHEST PAIN. SEE NUCLEAR MEDICINE REPORT.
--- NOTE | 2018-04-13 15:34 | CON ---
Date of Consultation: 04/13/2018 Reason For Consultation: Hypertension and chest pain. History Of Present Illness: Mr. Jc is a 37-year-old Latin-Greek male with history of dyslip idemia, hypertension, diabetes, migraines, thyroid disorder and history of pancreatitis many years ag o. He was having headaches and monitor his blood pressure at home and went up to 191/101, would not be controlled with his usual medication and he came to the emergency room. He said he only had sligh t chest pain in the center of the chest without any nausea, vomiting, diaphoresis, PND, orthopnea, pe cory edema, palpitations, or syncope. Past Medical History: As stated above. Allergies: NONE. Review of Systems: Negative. Social History: Negative for tobacco, alcohol, or drugs. Family History: Positive for heart disease and diabetes. Medications At Home: Include; Synjardy, Crestor, Prilosec, Synthroid, Toprol, Avapro, and . Physical Examination: General: When I saw him today, his pressure 160/88. HEENT: Negative. Neck: Supple. No bruit. Chest: Clear to auscultation and percussion. Cardiac: Revealed a regular rhythm and rate with a positive S4 gallops. No murmurs or rubs. Abdomen: Benign. Extremities: Revealed no clubbing, cyanosis, or edema. Diagnostic Data: His liver function enzyme was slightly elevated. CT of the abdomen showed fatty li aura. EKG showed right bundle-branch block. Chest x-ray is negative. Troponin is negative. Impression And Plan: Hypertension, poorly controlled. I would suggest increasing the Toprol, adding diuretic or adding Norvasc. I would like him to get had an echocardiogram and a Lexiscan considerin g his chest pain with the hypertension and his many risk factors. His diabetes is well controlled. His hypertension is poorly controlled. His thyroid disorder is well controlled. He does not have an y pancreatitis symptoms anymore. His gastroesophageal reflux disease is well controlled on Prilosec and his dyslipidemia is well controlled on current therapy. NB/MODL Voice ID: [id number] Report ID: [id number]
--- NOTE | 2018-04-16 07:35 | EKG ---
Test Date: 2018-04-15 Test Time: 16:37:23 Director Of Surgery: BASIA MEASUREMENT RESULTS: Intervals: Rate: 92 DE: 176 QRSD: 102 QT: 378 QTc: 467 [place]: P: 16 DE: 176 QRS: -31 T: 74 INTERPRETIVE STATEMENTS: Normal sinus rhythm Left axis deviation Nonspecific T wave abnormality Prolonged QT Abnormal ECG Compared to ECG 04/12/2018 13:55:20 Prolonged QT interval now present Right bundle-branch block no longer present Left ventricular hypertrophy no longer present Possible ischemia no longer present T-wave abnormality still present Electronically Signed On 04-16-18 07:34:05 CDT by Chicho Martinez
== END 2018-04-13 14:33 | disposition home or self-care (01) ==
LOC: ER 13:38 → ERHOLD 15:30 → 4TH 17:45
PROVIDERS: ADMIT Family Medicine; ATTEND Family Medicine
DX: I16.0 Hypertensive urgency (principal); R94.5 Abnormal results of liver function studies; E11.9 Type 2 diabetes mellitus without complications; E03.9 Hypothyroidism, unspecified; E78.5 Hyperlipidemia, unspecified; Z87.891 Personal history of nicotine dependence
CPT/HCPCS: 36415; 70450; 71045; 76705; 78452; 80048; 80053; 80061; 80076; 80307; 80329; 81003; 81015; 82550; 82553; 82962; 83690; 83735; 83880; 84100; 84443; 84484; 85025; 85610; 85730; 93005; 93017; 93306; 96361; 96372; 96374; 96375; 99285; A9500; G0378; J1650; J2405; J2785; J3010; J7030

== ENCOUNTER 2019-02-07 09:48 | Emergency (ER) | payer OTHER, SELFPAY ==
--- OUTSIDE RECORDS SUMMARY | 2019-02-07 09:50 | XMS REPORT ---
:1980 [facility] Address [address] [place] [address] Dr. Velazquez [address] [place] [address] Care Team Providers Name Role Phone DR SHANIKA WAGNER Unavailable Unavailable Problems This patient has no known problems. Allergies, Adverse Reactions, Alerts This patient has no known allergies or adverse reactions. Medications This patient has no known medications. Encounters Start End Encounter Admission Attending Care Care Encounter Date/Time Date/Time Type Type Clinicians Facility Department ID 2018-09-29 2018-09-29 Outpatient MORALES OLIVERA RIVEROAKSASC [id number] 05:51:00 10:08:00 SHANIKA Results Test Description Test Time Test Comments Text Results Atomic Results Result Comments GLUCOMETER GLUCOSE- LAB USE ONLY 2018-09-29 06:34:00 Test Item Value Reference Range Comments GLUCOMETER (test code=GMG) 99 mg/dL 70-100 CLEANED METERMeter ID: [id number]: [id number] CARMELA BRIAN
[2019-02-07 10:40] LABS: Absolute Lymphocytes (CBC) 3.2 K/uL (0.7-4.9); Eosinophils % 2.1 % (0-4.4); Hematocrit 53.7 % (39.6-49.0); Lymphocytes % 34.2 % (15.3-44.8); MPV 9.2 fL (7.6-11.3); RBC Red Blood Cell Count 5.92 M/uL (4.33-5.43)
[2019-02-07 10:41] LABS: Protime INR 0.93
--- NOTE | 2019-02-07 10:48 | RAD REPORT ---
EXAM DESCRIPTION: Ivette Single View02/07/2019 10:29 am CLINICAL HISTORY: Shortness of breath COMPARISON: April 2018 FINDINGS: The lungs appear clear of acute infiltrate. The heart is normal size IMPRESSION: No acute abnormalities displayed
[2019-02-07 11:45] LABS: ALT/SGPT 71 U/L (12-78); AST/SGOT 33 U/L (15-37); Albumin 3.7 g/dL (3.4-5.0); Alkaline Phosphatase 117 U/L (45-117); BUN Blood Urea Nitrogen 20 mg/dL (7-18); Bicarbonate 26 mmol/L (21-32); Bilirubin Total 0.5 mg/dL (0.2-1.0); Glucose Level 158 mg/dL (74-106); Potassium 3.8 mmol/L (3.5-5.1); Protein, Total 7.8 g/dL (6.4-8.2); Sodium Level 141 mmol/L (136-145); Troponin (Emerg Dept Use Only) < 0.02 ng/mL (0.0-0.045)
--- NOTE | 2019-02-07 12:03 | ER ---
Nurse's Notes [facility] Name: Drew Jc Age: 38 yrs Sex: Male : 1980 Arrival Date: 02/07/2019 Time: 09:53 Bed 4 Private MD: Paul Herrmann B Diagnosis: Hypertension Presentation: 02/07 09:58 Presenting complaint: Patient states: las night, i felt my BP is high, i took it my BP hj is 180/109; i took my regular Bystolic 10 mg and took my fathers Rx for furosemide 40 mg PO and took my metoprolol XL 100 mg and terazosin 5 mg; today i had an headache and a little pressure on my chest; my PCP wanted me to come here for eval;. Transition of care: patient was not received from another setting of care. Onset of symptoms was February 07, 2019. Risk Assessment: Do you want to hurt yourself or someone else? Patient reports no desire to harm self or others. Initial Sepsis Screen: Does the patient meet any 2 criteria? No. Patient's initial sepsis screen is negative. Does the patient have a suspected source of infection? No. Patient's initial sepsis screen is negative. Care prior to arrival: None. 09:58 Method Of Arrival: Ambulatory 09:58 Acuity: COCO 3 hj Triage Assessment: 12:10 Respiratory: Onset: The symptoms/episode began/occurred today, the patient has mild ch shortness of breath. Historical: - Allergies: 10:00 No Known Allergies; hj - PMHx: 10:00 Diabetes - NIDDM; Hypertension; Hypothyroidism; Pancreatitis; hj - PSHx: 10:00 Tonsillectomy; Cholecystectomy; Appendectomy; hj - Immunization history:: Adult Immunizations up to date. - Social history:: Smoking status: Patient/guardian denies using tobacco. - Ebola Screening: : Patient negative for fever greater than or equal to 101.5 degrees Fahrenheit, and additional compatible Ebola Virus Disease symptoms Patient denies exposure to infectious person Patient denies travel to an Ebola-affected area in the 21 days before illness onset No symptoms or risks identified at this time. Screenin:25 Abuse screen: Denies threats or abuse. Denies injuries from another. Nutritional aj screening: No deficits noted. Tuberculosis screening: No symptoms or risk factors identified. Fall Risk None identified. Assessment: 10:25 General: Appears in no apparent distress. comfortable, Behavior is calm, cooperative, aj appropriate for age. Pain: Denies pain. Neuro: Level of Consciousness is awake, alert, obeys commands, Oriented to person, place, time, situation, Appropriate for age. Cardiovascular: Reports shortness of breath, "slight chest pressure" Rhythm is regular. Respiratory: Reports shortness of breath Airway is patent Respiratory effort is even, unlabored, Respiratory pattern is regular, symmetrical, Breath sounds are clear bilaterally. Derm: Skin is intact, is healthy with good turgor, Skin is pink, warm \\T\\ dry. normal. 12:09 Reassessment: Patient appears in no apparent distress at this time. Patient and/or ch family updated on plan of care and expected duration. Pain level reassessed. Patient is alert, oriented x 3, equal unlabored respirations, skin warm/dry/pink. Patient states feeling better. Patient states symptoms have improved. Vital Signs: 10:00 BP 143 / 89; Pulse 79; Resp 18; Temp 98.1(TE); Pulse Ox 98% on R/A; Weight 121.56 kg; hj Height 5 ft. 8 in. (172.72 cm); Pain 3/10; 11:34 BP 137 / 85; Pulse 68; Resp 20; Pulse Ox 98% on R/A; aj 12:09 BP 141 / 78; Pulse 65; Resp 14; Temp 98.7; Pulse Ox 99% on R/A; Pain 0/10; ch 10:00 Body Mass Index 40.75 (121.56 kg, 172.72 cm) ED Course: 09:53 Patient arrived in ED. mr 09:53 Paul Herrmann MD is Private Physician. mr 10:00 Triage completed. hj 10:01 Arm band placed on right wrist. hj 10:02 EKG done, by instructional media services technician. reviewed by Aleksandr Merida MD. at1 10:09 Jackson Thomson MD is Attending Physician. ps1 10:10 Jeannie Kumar, PRATEEK is Primary Nurse. aj 10:25 Patient has correct armband on for positive identification. aj 10:25 Inserted saline lock: 18 gauge in right antecubital area, using aseptic technique. aj Blood collected. 10:26 XRAY Chest (1 view) In Process Unspecified. EDMS 11:54 CBC with Diff Sent. aj 11:54 Magnesium Sent. aj 12:03 Paul Herrmann MD is Referral Physician. ps1 12:09 No apparent distress. Resting quietly. ch 12:09 ekg monitor tech on. Pulse ox on. NIBP on. ch 12:09 No provider procedures requiring assistance completed. IV discontinued, intact, ch bleeding controlled, No redness/swelling at site. Pressure dressing applied. Administered Medications: No medications were administered Outcome: 12:03 Discharge ordered by . ps1 12:09 Discharged to home ambulatory. ch 12:09 Condition: stable 12:09 Discharge instructions given to patient, Instructed on discharge instructions, follow up and referral plans. Demonstrated understanding of instructions, follow-up care. 12:10 Patient left the ED. Signatures: Dispatcher [employer] EDMS Kecia Marc RN RN ch Myers, Amanda, Reina Greene RN mr Jeannie Jc, extrusion operator EKG Tat1 Cristopher Schuler RN RN hj Singer, Phillip, MD MD ps1
--- NOTE | 2019-02-07 12:04 | EDPHYS ---
Physician Documentation [facility] Name: Drew Jc Age: 38 yrs Sex: Male : 1980 Arrival Date: 02/07/2019 Time: 09:53 Bed 4 Private MD: Paul Herrmann B ED Physician Jackson Thomson HPI: 02/07 10:16 This 38 yrs old Male presents to ER via Ambulatory with complaints of High ps1 Blood Pressure, Dizziness, Shortness Of Breath. 10:16 patient presenting with FLOWERS and headache that started yesterday. States that he has a ps1 history of HTN and noticed that his blood pressure was elevated. His systolic was 180 and associated with a headache. No CP. Headache was gradual and since resolved localized frontal, no FND. . Historical: - Allergies: 10:00 No Known Allergies; hj - PMHx: 10:00 Diabetes - NIDDM; Hypertension; Hypothyroidism; Pancreatitis; hj - PSHx: 10:00 Tonsillectomy; Cholecystectomy; Appendectomy; hj - Immunization history:: Adult Immunizations up to date. - Social history:: Smoking status: Patient/guardian denies using tobacco. - Ebola Screening: : Patient negative for fever greater than or equal to 101.5 degrees Fahrenheit, and additional compatible Ebola Virus Disease symptoms Patient denies exposure to infectious person Patient denies travel to an Ebola-affected area in the 21 days before illness onset No symptoms or risks identified at this time. ROS: 10:16 Constitutional: Negative for fever, chills, and weight loss, Eyes: Negative for injury, ps1 pain, redness, and discharge, Neck: Negative for injury, pain, and swelling, Cardiovascular: Negative for chest pain, palpitations, and edema, Abdomen/GI: Negative for abdominal pain, nausea, vomiting, diarrhea, and constipation, MS/Extremity: Negative for injury and deformity, Skin: Negative for injury, rash, and discoloration. 10:16 Constitutional: Positive for fatigue. 10:16 Respiratory: Positive for dyspnea on exertion. 10:16 Neuro: Positive for headache. Exam: 10:18 Constitutional: This is a well developed, well nourished patient who is awake, alert, ps1 and in no acute distress. Head/Face: Normocephalic, atraumatic. Eyes: Pupils equal round and reactive to light, extra-ocular motions intact. Lids and lashes normal. Conjunctiva and sclera are non-icteric and not injected. Chest/axilla: Normal chest wall appearance and motion. Nontender with no deformity. No lesions are appreciated. Cardiovascular: Regular rate and rhythm. No gallops, murmurs, or rubs. Normal PMI, no JVD. No pulse deficits. Respiratory: Lungs have equal breath sounds bilaterally, clear to auscultation and percussion. No rales, rhonchi or wheezes noted. No increased work of breathing, no retractions or nasal flaring. Abdomen/GI: Soft, non-tender, with normal bowel sounds. No distension or tympany. No guarding or rebound. No evidence of tenderness throughout. Skin: Warm, dry with normal turgor. Normal color with no rashes, no lesions, and no evidence of cellulitis. MS/ Extremity: Pulses equal, no cyanosis. Neurovascular intact. Full, normal range of motion. Neuro: Awake and alert, GCS 15, oriented to person, place, time, and situation. Cranial nerves II-XII grossly intact. Sensory grossly intact. Psych: Awake, alert, with orientation to person, place and time. Behavior, mood, and affect are within normal limits. Vital Signs: 10:00 BP 143 / 89; Pulse 79; Resp 18; Temp 98.1(TE); Pulse Ox 98% on R/A; Weight 121.56 kg; hj Height 5 ft. 8 in. (172.72 cm); Pain 3/10; 11:34 BP 137 / 85; Pulse 68; Resp 20; Pulse Ox 98% on R/A; aj 12:09 BP 141 / 78; Pulse 65; Resp 14; Temp 98.7; Pulse Ox 99% on R/A; Pain 0/10; ch 10:00 Body Mass Index 40.75 (121.56 kg, 172.72 cm) hj MDM: 10:33 Patient medically screened. ps1 12:04 Data reviewed: vital signs, nurses notes, lab test result(s), EKG, radiologic studies, ps1 and as a result, I will discharge patient. Counseling: I had a detailed discussion with the patient and/or guardian regarding: the historical points, exam findings, and any diagnostic results supporting the discharge/admit diagnosis, the presence of at least one elevated blood pressure reading (>120/80) during this emergency department visit, lab results, radiology results, the need for outpatient follow up, to return to the emergency department if symptoms worsen or persist or if there are any questions or concerns that arise at home. 02/07 10:11 Order name: CBC with Diff; Complete Time: 12:02 ps1 02/07 10:11 Order name: Magnesium; Complete Time: 12:02 ps1 02/07 10:11 Order name: NT PRO-BNP; Complete Time: 11:43 ps1 02/07 10:11 Order name: PT-INR; Complete Time: 11:07 ps1 02/07 10:11 Order name: Troponin (emerg Dept Use Only); Complete Time: 11:50 ps1 02/07 10:11 Order name: CMP; Complete Time: 11:50 ps1 02/07 10:01 Order name: EKG - Nurse/Tech; Complete Time: 10: hj 02/07 10:11 Order name: XRAY Chest (1 view); Complete Time: 11:07 ps1 02/07 10:11 Order name: EKG; Complete Time: 10:13 ps1 02/07 10:11 Order name: Cardiac monitoring; Complete Time: 10:21 ps1 02/07 10:11 Order name: IV Saline Lock; Complete Time: 10:22 ps1 02/07 10:11 Order name: Labs collected and sent; Complete Time: 10:22 ps1 02/07 10:12 Order name: CBC with Automated Diff; Complete Time: 11:07 EDMS 02/07 10:12 Order name: Magnesium; Complete Time: 11:43 EDMS 02/07 10:11 Order name: O2 Per Protocol; Complete Time: 10:22 ps1 02/07 10:11 Order name: O2 Sat Monitoring; Complete Time: 10:22 ps1 Administered Medications: No medications were administered Disposition: 02/07/19 12:03 Discharged to Home. Impression: Hypertension. - Condition is Stable. - Discharge Instructions: Hypertension. - Medication Reconciliation Form, Thank You Letter, Antibiotic Education, Prescription Opioid Use form. - Follow up: Paul Herrmann MD; When: 48 Hours; Reason: Recheck today's complaints, Continuance of care, Re-evaluation by your physician. - Problem is chronic. - Symptoms have worsened. Signatures: Dispatcher [employer] EDKecia Mitchell, RN Jeannie Escamilla ch, RN RN aj Joaquin, Henry, RN RN hj Singer, Phillip, MD MD ps1 Corrections: (The following items were deleted from the chart) 12:10 12:03 02/07/2019 12:03 Discharged to Home. Impression: Hypertension. Condition is ch Stable. Forms are Medication Reconciliation Form, Thank You Letter, Antibiotic Education, Prescription Opioid Use. Follow up: Paul Herrmann; When: 48 Hours; Reason: Recheck today's complaints, Continuance of care, Re-evaluation by your physician. Problem is chronic. Symptoms have worsened. ps1
--- NOTE | 2019-02-07 19:43 | EKG ---
Test Date: 2019-02-07 Test Time: 09:57:36 Account Financial Manager: FLAVIA MEASUREMENT RESULTS: Intervals: Rate: 79 IA: 144 QRSD: 120 QT: 382 QTc: 438 [place]: P: 7 IA: 144 QRS: 248 T: -20 INTERPRETIVE STATEMENTS: Normal sinus rhythm Right bundle branch block Abnormal ECG Compared to ECG 04/15/2018 16:37:23 Right bundle-branch block now present Left-axis deviation no longer present T-wave abnormality no longer present Prolonged QT interval no longer present Electronically Signed On 02-07-19 19:40:34 CDT by Chicho Martinez
[2019-02-09 17:06] VITALS: BP 141/78; TEMP 98.7; O2SAT 99
== END 2019-02-07 12:10 | disposition home or self-care (01) ==
LOC: ER 09:48
DX: I10 Essential (primary) hypertension (principal)
CPT/HCPCS: 36415; 71045; 80053; 83735; 83880; 84484; 85025; 85610; 93005; 99284

== ENCOUNTER → 2019-09-14 | Day surgery (SDC) | payer OTHER ==
[~2019-09-14] MED LIST: CEFAZOLIN/SWI 1gm 1 GM/10 ML SYR ONE; CODEINE 30MG/APAP 300MG TAB ONE; FENTANYL CITR 100 MCG/2 ML ONE; LIDOCAINE 2% MPF 5 ML VIAL ONE; MIDAZOLAM HCL 2 MG/2 ML INJ ONE; NA CHLORIDE 0.9% 1,000 ML ONE; ONDANSETRON 4 MG/2 ML VIAL IV ONE; ONDANSETRON 4 MG/2 ML VIAL ONE; propofoL 200 MG/20 ML VIAL IV ONE
--- OUTSIDE RECORDS SUMMARY | 2019-09-14 08:01 | XMS REPORT ---
:1980 [facility] Address [address] [place] [address] Dr. Velazquez[address] [place] [address] Care Team Providers Name Role Phone DR SHANIKA WAGNER Unavailable Unavailable Problems This patient has no known problems. Allergies, Adverse Reactions, Alerts This patient has no known allergies or adverse reactions. Medications This patient has no known medications. Encounters Start End Encounter Admission Attending Care Care Encounter Date/Time Date/Time Type Type Clinicians Facility Department ID 2018-09-29 2018-09-29 Outpatient MORALES OLIVERAKSKINJAL [id number] 05:51:00 10:08:00 SHANIKA Results Test Description Test Time Test Comments Text Results Atomic Results Result Comments GLUCOMETER GLUCOSE- LAB USE ONLY 2018-09-29 06:34:00 Test Item Value Reference Range Comments GLUCOMETER (test code=GMG) 99 mg/dL 70-100 CLEANED METERMeter ID: [id number]: [id number] CARMELA BRIAN
--- OUTSIDE RECORDS SUMMARY | 2019-09-14 08:23 | XMS REPORT ---
:1980 [facility] Address [address] [place] [address] Dr. Velazquez. [address] [place] [address] Care Team Providers Name Role Phone DR SHANIKA WAGNER Unavailable Unavailable Problems This patient has no known problems. Allergies, Adverse Reactions, Alerts This patient has no known allergies or adverse reactions. Medications This patient has no known medications. Encounters Start End Encounter Admission Attending Care Care Encounter Date/Time Date/Time Type Type Clinicians Facility Department ID 2018-09-29 2018-09-29 Outpatient MORALES OLIVERAKSKINJAL [id number] 05:51:00 10:08:00 SHANIKA Results Test Description Test Time Test Comments Text Results Atomic Results Result Comments GLUCOMETER GLUCOSE- LAB USE ONLY 2018-09-29 06:34:00 Test Item Value Reference Range Comments GLUCOMETER (test code=GMG) 99 mg/dL 70-100 CLEANED METERMeter ID: [id number]: [id number] CARMELA BRIAN
[2019-09-14 08:46] LABS: Absolute Lymphocytes (CBC) 2.7 K/uL (0.7-4.9); Hematocrit 45.7 % (39.6-49.0); Lymphocytes % 19.6 % (15.3-44.8); MPV 9.4 fL (7.6-11.3)
[2019-09-14 09:01] LABS: Potassium 4.6 mmol/L (3.5-5.1)
--- NOTE | 2019-09-14 09:08 | EKG ---
Test Date: 2019-09-14 Test Time: 08:36:15 Human Resource Professional: FLAVIA MEASUREMENT RESULTS: Intervals: Rate: 71 ME: 154 QRSD: 154 QT: 418 QTc: 454 [place]: P: -5 ME: 154 QRS: -32 T: -25 INTERPRETIVE STATEMENTS: Normal sinus rhythm Left axis deviation Right bundle branch block Abnormal ECG Compared to ECG 02/07/2019 09:57:36 Left-axis deviation now present Electronically Signed On 09-14-19 09:07:50 PRACTICE SPECIALIST by Robert Ortega
--- NOTE | 2019-09-14 09:34 | RAD REPORT ---
EXAM DESCRIPTION: Ivette Hardy (2 Views)09/14/2019 8:49 am CLINICAL HISTORY: Preop for I and D of a boil COMPARISON: February 2019 FINDINGS: The lungs appear clear of acute infiltrate. The heart is normal size IMPRESSION: No acute abnormalities displayed
--- NOTE | 2019-09-14 11:07 | P.BOP ---
Preoperative diagnosis: infected right buttock mass with abscess Postoperative diagnosis: same Primary procedure: Excisional biopsy of infected right buttock mass with abscess drainage Secondary procedure: 5 x 5 cm Estimated blood loss: <10cc Specimen: mass and culture of abscess Findings: as above Anesthesia: General Complications: None Drain(s): Other Transferred to: Recovery Room Condition: Good
[2019-09-14] MEDS: HYDROMORPHONE HCL 1 MG/ML INJ ONE ×2 (11:30→11:36)
[2019-09-14 14:20] VITALS: BP 99/40; TEMP 97; O2SAT 99
--- NOTE | 2019-09-14 23:20 | DS ---
Diagnosis: Infected right buttock mass with abscess. Procedure: Excisional biopsy of the infected right buttock mass with abscess drainage. Disposition: Home. Activity: As tolerated. No heavy lifting. Followup: Follow up in my office in 1 week. Call for appointment [phone]. Discharge Instructions: Keep area clean. Wet-to-dry dressing daily. Medications: Bactrim DS p.o. b.i.d., Tylenol No. 3 q.4 h. p.r.n. pain, and normal saline for dressin g changes. He understood. He has a good idea of how to do the dressing changes and he does not want any home health at this time. CHAI/ADAM Voice ID: [id number] Report ID: [id number]
--- NOTE | 2019-09-14 23:20 | OP ---
Date of Procedure: 09/14/2019 Surgeon: Cristopher Ny MD Preoperative Diagnosis: Infected right buttock mass with abscess. Postoperative Diagnosis: Infected right buttock mass with abscess. Procedure: Excisional biopsy of infected right buttock mass with abscess drainage. The size about 5 x 5 cm. Estimated Blood Loss: Less than 10 mL. Specimen: Mass with culture of an abscess pus. Findings: Patient has an inflammatory mass present with abscess. Anesthesia: General plus local. Packing: Wet-to-dry. Indications: This is a case of a male who comes to us with an area of the right buttock shows a mass in that region with redness, purulent discharge, erythema, increased temperature, tenderness. He wa s diagnosed with infected right buttock mass with abscess and he was explained the need for drainage of that area and he wants the mass removed at the same time. The benefits, alternatives, and risks o f excisional biopsy of infected buttock mass with drainage of an abscess fully explained, which inclu de, but are not limited to infection, bleeding, damage to adjacent structures, anesthesia complicatio n, recurrence, NV, and even . He also understands this may not relieve his symptoms. He might need more than one surgical intervention. He understood and signed a consent. He is flying tomorrow to [facility]. We explained to him and even if he goes out of town, he has to do wet-to-dry dressings ov er those region and make sure he is compliant with antibiotics. He understood the importance of bein g careful with narcotics and the use of that since may affect his function, he understood. He was en couraged to have somebody also help him for that. Description Of Procedure: Patient was brought to the operating room, placed in supine position. Ane sthesia was done without complication. Patient was placed in lateral decubitus position with proper protection. Right buttocks prepped and draped in sterile fashion. Local anesthesia was applied foll owed by a wedge incision of the skin and subcutaneous inflammatory mass that lead us into an abscess cavity. The entire area was about 5 x 5 cm when loculations were explored and opened. Cultures were done. The local anesthetic was applied. Hemostasis obtained and the area was packed with wet-to-dr y dressing. Patient tolerated the procedure well. Patient was sent to recovery in stable condition. CHAI/ADAM Voice ID: [id number] Report ID: [id number]
== END | disposition home or self-care (01) ==
LOC: OR 07:57
PROVIDERS: ATTEND Surgery
PROC: 0JB90ZX Excision of Buttock Subcutaneous Tissue and Fascia, Open Approach, Diagnostic (ICD-10-PCS; principal; 2019-09-14 09:45)
DX: R22.2 Localized swelling, mass and lump, trunk (principal); L02.31 Cutaneous abscess of buttock; E11.9 Type 2 diabetes mellitus without complications; I10 Essential (primary) hypertension; E78.00 Pure hypercholesterolemia, unspecified; E66.9 Obesity, unspecified; Z68.38 Body mass index [BMI] 38.0-38.9, adult; Z90.49 Acquired absence of other specified parts of digestive tract; Z80.9 Family history of malignant neoplasm, unspecified; Z83.3 Family history of diabetes mellitus; Z82.49 Family history of ischemic heart disease and other diseases of the circulatory system
CPT/HCPCS: 93005; 87070; 85025; 80048; 36415; 87205; 82947 ×2; 88304; 87075; 87077; 87186; 71046; 11106; J2704; J2250; J3010; J1170; J0690; J7030; J2405 ×2

== ENCOUNTER 2020-05-10 09:21 | Emergency (ER) | payer OTHER ==
[2020-05-10 10:15] LABS: Absolute Lymphocytes (CBC) 2.7 K/uL (0.7-4.9); Basophils % 1.1 % (0-1.3); Hematocrit 52.5 % (39.6-49.0); Lymphocytes % 39.2 % (15.3-44.8); MPV 8.7 fL (7.6-11.3); RBC Red Blood Cell Count 5.86 M/uL (4.33-5.43)
[2020-05-10 10:41] LABS: ALT/SGPT 43 U/L (12-78); AST/SGOT 32 U/L (15-37); Albumin 3.8 g/dL (3.4-5.0); Alkaline Phosphatase 93 U/L (45-117); BUN Blood Urea Nitrogen 19 mg/dL (7-18); Bicarbonate 28 mmol/L (21-32); Bilirubin Direct 0.2 mg/dL (0-0.2); Bilirubin Total 0.8 mg/dL (0.2-1.0); Glucose Level 106 mg/dL (74-106); Lipase 181 U/L (73-393); Potassium 4.6 mmol/L (3.5-5.1); Protein, Total 8.2 g/dL (6.4-8.2); Sodium Level 138 mmol/L (136-145); Troponin (Emerg Dept Use Only) < 0.02 ng/mL (0.0-0.045)
--- NOTE | 2020-05-10 10:53 | ER ---
Nurse's Notes [facility] Name: Drew Jc Age: 39 yrs Sex: Male : 1980 Arrival Date: 05/10/2020 Time: 09:25 Bed 17 Private MD: Paul Herrmann B Diagnosis: Upper abdominal pain, unspecified Presentation: 05/10 09:44 Chief complaint: Patient states: midsternal chest pain that felt like heart burn iw started last night, constant, worse after eating or drinking , reports mild nausea , no vomiting. Coronavirus screen: At this time, the client does not indicate any symptoms associated with coronavirus-19. Ebola Screen: Patient negative for fever greater than or equal to 101.5 degrees Fahrenheit, and additional compatible Ebola Virus Disease symptoms Patient denies exposure to infectious person. Patient denies travel to an Ebola-affected area in the 21 days before illness onset. No symptoms or risks identified at this time. Initial Sepsis Screen: Does the patient meet any 2 criteria? No. Patient's initial sepsis screen is negative. Does the patient have a suspected source of infection? No. Patient's initial sepsis screen is negative. Risk Assessment: Do you want to hurt yourself or someone else? Patient reports no desire to harm self or others. Onset of symptoms was May 09, 2020. 09:44 Method Of Arrival: Ambulatory iw 09:44 Acuity: COCO 3 iw Historical: - Allergies: 09:50 No Known Allergies; iw - Home Meds: 09:50 Avapro 300 mg Oral tab 1 tab once daily [Active]; Synthroid 88 mcg Oral tab 1 tab once iw daily [Active]; Toprol XL 25 mg oral Tb24 once daily [Active]; Zetia 10 mg Oral tab 1 tab once daily [Active]; Crestor 5 mg oral tab 1 tab once daily [Active]; Vascepa 1 gram oral cap 2 caps 2 times per day [Active]; - PMHx: 09:50 Diabetes - NIDDM; Hypertension; Hypothyroidism; Pancreatitis; iw - PSHx: 09:50 Tonsillectomy; Cholecystectomy; Appendectomy; iw - Immunization history:: Adult Immunizations up to date. - Social history:: Smoking status: unknown. Screenin:04 Abuse screen: Denies threats or abuse. Denies injuries from another. Nutritional ph screening: No deficits noted. 10:30 Tuberculosis screening: No symptoms or risk factors identified. Fall Risk None ph identified. Assessment: 10:28 General: Appears in no apparent distress. comfortable, well groomed, Behavior is calm, ph cooperative, appropriate for age, Denies fever, feeling ill. Pain: Complains of pain in epigastric area Pain radiates to right upper quadrant Quality of pain is described as burning. Neuro: Level of Consciousness is awake, alert, obeys commands, Oriented to person, place, time, situation. Cardiovascular: Reports chest pain, nausea, Denies lightheadedness, shortness of breath, syncope, vomiting, Capillary refill < 3 seconds in bilateral fingers Patient's skin is warm and dry. Chest pain quality is burning, is located in epigastric area substernal area. Respiratory: Airway is patent Respiratory effort is even, unlabored, Respiratory pattern is regular, symmetrical. GI: Reports nausea, Patient currently denies abdominal pain, vomiting. Derm: Skin is intact, is healthy with good turgor, Skin is pink, warm \T\ dry. 11:15 Reassessment: Patient appears in no apparent distress at this time. Patient and/or ph family updated on plan of care and expected duration. Pain level reassessed. Patient is alert, oriented x 3, equal unlabored respirations, skin warm/dry/pink. D/C pending completion of IV meds. 11:38 Reassessment: Patient appears in no apparent distress at this time. Patient and/or ph family updated on plan of care and expected duration. Pain level reassessed. Patient is alert, oriented x 3, equal unlabored respirations, skin warm/dry/pink. Patient states symptoms have improved. Vital Signs: 09:44 BP 120 / 78; Pulse 65; Resp 16; Temp 98.0; Pulse Ox 100% on R/A; Pain 7/10; iw 11:15 BP 123 / 72; Pulse 63; Resp 18; Pulse Ox 99% on R/A; ph 11:38 Temp 97.7; ph ED Course: 09:25 Patient arrived in ED. mr 09:26 Paul Herrmann MD is Private Physician. mr 09:42 [facility] kb 09:42 Roddy Young MD is Attending Physician. kb 09:46 Triage completed. iw 09:50 Arm band placed on. iw 09:56 EKG done, by ED staff, reviewed by Roddy Young MD. [facility] 09:59 Nichelle Peres, RN is Primary Nurse. ph 10:03 Inserted saline lock: 20 gauge in right antecubital area, using aseptic technique. ph Blood collected. 10:06 CT Abd/Pelvis - IV Contrast Only In Process Unspecified. EDMS 10:30 Patient has correct armband on for positive identification. Placed in gown. Bed in low ph position. Call light in reach. Side rails up X2. monitoring engineer on. Pulse ox on. NIBP on. Door closed. Noise minimized. Warm blanket given. 10:31 Patient maintains SpO2 saturation greater than 95% on room air. ph 11:38 No provider procedures requiring assistance completed. IV discontinued, intact, ph bleeding controlled, No redness/swelling at site. Pressure dressing applied. Administered Medications: 11:14 Drug: Reglan 10 mg {Note: Mixed in 100cc NS.} Route: IVP; Site: right antecubital; ph 11:37 Follow up: Response: No adverse reaction ph 11:14 Drug: TORadol - Ketorolac 15 mg Route: IVP; Site: right antecubital; ph 11:37 Follow up: Response: No adverse reaction; Pain is decreased ph Outcome: 10:52 Discharge ordered by . kb 11:38 Discharged to home ambulatory. ph 11:38 Condition: good 11:38 Discharge instructions given to patient, Instructed on discharge instructions, follow up and referral plans. medication usage, Demonstrated understanding of instructions, follow-up care, medications, Prescriptions given X 1. 11:38 Patient left the ED. ph Signatures: Dispatcher [employer] EDMS Stefani Connor, SWEETIE-Helen BAKERP-Reina Jones Irene, RN Nichelle Pinon, RN Jenny Harden ph [facility]
--- NOTE | 2020-05-10 10:53 | EDPHYS ---
Physician Documentation [facility] Name: Drew Jc Age: 39 yrs Sex: Male : 1980 Arrival Date: 05/10/2020 Time: 09:25 Bed 17 Private MD: Paul Herrmann B ED Physician Roddy Young HPI: 05/10 09:54 This 39 yrs old Male presents to ER via Ambulatory with complaints of Chest kb Pain. 09:54 The patient presents with abdominal pain in the epigastric area. Onset: The kb symptoms/episode began/occurred yesterday. The symptoms do not radiate. Associated signs and symptoms: none. The symptoms are described as constant. Modifying factors: The symptoms are alleviated by nothing, the symptoms are aggravated by drinking, food. Severity of pain: At its worst the pain was moderate in the emergency department the pain is unchanged. The patient has not experienced similar symptoms in the past. The patient has not recently seen a physician. Pt reports epigastric pain started yesterday and was intermittent. Pain worsens after eating. This morning pain became constant. Had EGD in August and the paperwork says gastroparesis, but pt isn't sure about it because he was unable to follow up due to covid. Historical: - Allergies: 09:50 No Known Allergies; iw - Home Meds: 09:50 Avapro 300 mg Oral tab 1 tab once daily [Active]; Synthroid 88 mcg Oral tab 1 tab once iw daily [Active]; Toprol XL 25 mg oral Tb24 once daily [Active]; Zetia 10 mg Oral tab 1 tab once daily [Active]; Crestor 5 mg oral tab 1 tab once daily [Active]; Vascepa 1 gram oral cap 2 caps 2 times per day [Active]; - PMHx: 09:50 Diabetes - NIDDM; Hypertension; Hypothyroidism; Pancreatitis; iw - PSHx: 09:50 Tonsillectomy; Cholecystectomy; Appendectomy; iw - Immunization history:: Adult Immunizations up to date. - Social history:: Smoking status: unknown. ROS: 09:53 Constitutional: Negative for fever, chills, and weight loss, Cardiovascular: Negative kb for chest pain, palpitations, and edema, Respiratory: Negative for shortness of breath, cough, wheezing, and pleuritic chest pain, Back: Negative for injury and pain, MS/Extremity: Negative for injury and deformity, Skin: Negative for injury, rash, and discoloration, Neuro: Negative for headache, weakness, numbness, tingling, and seizure. 09:53 Abdomen/GI: Positive for abdominal pain, Negative for nausea, vomiting, and diarrhea. Exam: 09:46 Constitutional: This is a well developed, well nourished patient who is awake, alert, kb and in no acute distress. Head/Face: Normocephalic, atraumatic. Chest/axilla: Normal chest wall appearance and motion. Nontender with no deformity. No lesions are appreciated. Cardiovascular: Regular rate and rhythm with a normal S1 and S2. No gallops, murmurs, or rubs. Normal PMI, no JVD. No pulse deficits. Respiratory: Lungs have equal breath sounds bilaterally, clear to auscultation and percussion. No rales, rhonchi or wheezes noted. No increased work of breathing, no retractions or nasal flaring. Back: No spinal tenderness. No costovertebral tenderness. Full range of motion. Skin: Warm, dry with normal turgor. Normal color with no rashes, no lesions, and no evidence of cellulitis. MS/ Extremity: Pulses equal, no cyanosis. Neurovascular intact. Full, normal range of motion. Neuro: Awake and alert, GCS 15, oriented to person, place, time, and situation. Cranial nerves II-XII grossly intact. Motor strength 5/5 in all extremities. Sensory grossly intact. Cerebellar exam normal. Normal gait. 09:46 Abdomen/GI: Inspection: abdomen appears normal, Bowel sounds: normal, in all quadrants, Palpation: soft, in all quadrants, mild abdominal tenderness, in the right upper quadrant, moderate abdominal tenderness, in the epigastric area. 09:47 ECG was reviewed by the Attending Physician. kb Vital Signs: 09:44 BP 120 / 78; Pulse 65; Resp 16; Temp 98.0; Pulse Ox 100% on R/A; Pain 7/10; iw 11:15 BP 123 / 72; Pulse 63; Resp 18; Pulse Ox 99% on R/A; ph 11:38 Temp 97.7; ph MDM: 09:43 Patient medically screened. kb 09:54 Data reviewed: vital signs, nurses notes. Data interpreted: Pulse oximetry: on room air kb is 100 %. Interpretation: normal. 10:23 ED course: Verbal CT report received from Dr Worthy. No acute findings. kb 10:52 Counseling: I had a detailed discussion with the patient and/or guardian regarding: the kb historical points, exam findings, and any diagnostic results supporting the discharge/admit diagnosis, lab results, radiology results, the need for outpatient follow up, a family practitioner, to return to the emergency department if symptoms worsen or persist or if there are any questions or concerns that arise at home. 05/10 09:46 Order name: Basic Metabolic Panel; Complete Time: 10:43 kb 05/10 09:46 Order name: CBC with Diff; Complete Time: 10:20 kb 05/10 09:46 Order name: Hepatic Function; Complete Time: 10:43 kb 05/10 09:46 Order name: Lipase; Complete Time: 10:43 kb 05/10 09:46 Order name: Troponin (emerg Dept Use Only); Complete Time: 10:43 kb 05/10 09:46 Order name: CT Abd/Pelvis - IV Contrast Only kb 05/10 09:46 Order name: IV Saline Lock; Complete Time: 10:30 kb 05/10 09:46 Order name: Labs collected and sent; Complete Time: 10:30 kb 05/10 09:46 Order name: EKG; Complete Time: 09:47 kb 05/10 09:46 Order name: EKG - Nurse/Tech; Complete Time: 09:57 kb EC:47 Rate is 60 beats/min. Rhythm is regular. QRS [place] is Normal. MO interval is normal at kb 164 msec. QRS interval is normal at 136 msec. QT interval is normal at 430 msec. Administered Medications: 11:14 Drug: Reglan 10 mg {Note: Mixed in 100cc NS.} Route: IVP; Site: right antecubital; ph 11:37 Follow up: Response: No adverse reaction ph 11:14 Drug: TORadol - Ketorolac 15 mg Route: IVP; Site: right antecubital; ph 11:37 Follow up: Response: No adverse reaction; Pain is decreased ph Disposition: 05/11 09:22 Co-signature as Attending Physician, Roddy Young MD I agree with the assessment and kdr plan of care. Disposition: 05/10/20 10:52 Discharged to Home. Impression: Upper abdominal pain, unspecified. - Condition is Stable. - Discharge Instructions: Abdominal Pain, Adult, [id number], Gastroparesis. - Prescriptions for Reglan 10 mg Oral Tablet - take 1 tablet by ORAL route every 6 hours take 30 minutes before meals and at bedtime; 20 tablet. - Medication Reconciliation Form, Thank You Letter, Antibiotic Education, Prescription Opioid Use form. - Follow up: Emergency Department; When: As needed; Reason: Worsening of condition. Follow up: Private Physician; When: 2 - 3 days; Reason: Recheck today's complaints, Continuance of care, Re-evaluation by your physician. Signatures: Dispatcher [employer] EDMS Stefani Connor, HISTOLOGY SUPERVISOR-C HISTOLOGY SUPERVISOR-Ckb Roddy Young MD MD kdr Anali Blackwell RN RN iw Nichelle Peres RN RN ph Corrections: (The following items were deleted from the chart) 05/10 11:38 10:52 05/10/2020 10:52 Discharged to Home. Impression: Upper abdominal pain, ph unspecified. Condition is Stable. Forms are Medication Reconciliation Form, Thank You Letter, Antibiotic Education, Prescription Opioid Use. Follow up: Emergency Department; When: As needed; Reason: Worsening of condition. Follow up: Private Physician; When: 2 - 3 days; Reason: Recheck today's complaints, Continuance of care, Re-evaluation by your physician. kb
[2020-05-10] MEDS ORDERED: METOCLOPRAMIDE 10 MG/2mL INJ ONE (11:19)
[2020-05-10] MEDS ORDERED: NA CHLORIDE 0.9% 100 ML IV ONE (11:20)
[2020-05-10] MEDS ORDERED: KETOROLAC 30 MG/ML INJ ONE (11:20)
[2020-05-10 11:45] VITALS: BP 123/72; O2SAT 99
[2020-05-10 11:47] VITALS: TEMP 97.7
--- NOTE | 2020-05-11 09:03 | RAD REPORT ---
EXAM DESCRIPTION: CT - Abdomen Pelvis W Contrast - 05/10/2020 10:18 pm CLINICAL HISTORY: ABD PAIN COMPARISON: No comparisons TECHNIQUE: Biphasic, helical CT imaging of the abdomen and pelvis was performed following 100 ml non -ionic IV contrast. No oral contrast administered. All CT scans are performed using dose optimization technique as appropriate and may include automated exposure control or mA/KV adjustment according to patient size. FINDINGS: No suspicious findings in the lung bases. The liver, spleen, and pancreas show no suspicious findings. Cholecystectomy clips are present. No bi liary tree dilatation. Symmetric renal function is seen with no hydronephrosis or suspicious renal mass. No pyelonephritis o r acute parenchymal process. Bladder is contracted which accentuates wall thickness. No accurate asse ssment can be made of possible cystitis. The bladder asymmetric wall mass is not identified. No adren al abnormalities. No dilated bowel loops or bowel wall thickening. Minimal diverticulosis present without diverticuliti s. No active GI process seen. No free air, free fluid or inflammatory stranding. No hernia, mass or bulky lymphadenopathy. Disc and bony degenerative changes are present. No acute finding identifiable. No acute vascular find ing. Report was delayed due to veneer sample maker system malfunction. Images were reviewed and findings telepho vanessa to the referring clinician at the time of the study. IMPRESSION: No acute or emergent CT abdomen or pelvis finding. Urinary bladder is contracted which accentuates wall thickness. Cystitis cannot be excluded and can b e correlated with clinical presentation. No asymmetric bladder wall thickening or mass.
--- NOTE | 2020-05-11 11:41 | EKG ---
Test Date: 2020-05-10 Test Time: 09:39:16 Stencil Sprayer: VENESSA MEASUREMENT RESULTS: Intervals: Rate: 60 CT: 164 QRSD: 136 QT: 430 QTc: 430 [place]: P: 48 CT: 164 QRS: -58 T: -4 INTERPRETIVE STATEMENTS: Normal sinus rhythm Left axis deviation Right bundle branch block Abnormal ECG Compared to ECG 09/14/2019 08:36:15 No significant changes Electronically Signed On 05-11-20 11:37:46 CDT by Chicho Martinez
== END 2020-05-10 11:38 | disposition home or self-care (01) ==
LOC: ER 09:21
DX: R10.13 Epigastric pain (principal); I10 Essential (primary) hypertension; E11.9 Type 2 diabetes mellitus without complications; E03.9 Hypothyroidism, unspecified
CPT/HCPCS: 93005; 85025; 80048; 36415; 82565; 80076; 84484; 83690; 74177; 96375; 96374; 99285; Q9967; J2765

== ENCOUNTER 2021-05-18 14:07 | Emergency (ER) | payer OTHER ==
[2021-05-18] MEDS ORDERED: dexAMETHasone 10 MG/ML VIAL ONE (15:36)
[2021-05-18] MEDS ORDERED: KETOROLAC 30 MG/ML INJ ONE (15:36)
[2021-05-18] MEDS ORDERED: MEPERIDINE HCL 50 MG/ML ONE (15:36)
--- NOTE | 2021-05-18 15:41 | RAD REPORT ---
EXAM DESCRIPTION: CT - Spine Lumbar Wo Con - 05/18/2021 3:29 pm CLINICAL HISTORY: Radiculopathy. Lower back pain;Radiculopathy COMPARISON: No comparisons TECHNIQUE: Axial noncontrast CT imaging of the lumbar spine was performed with coronal and sagittal re-formatted images. All CT scans are performed using dose optimization technique as appropriate and may include automated exposure control or mA/KV adjustment according to patient size. FINDINGS: No acute lumbar spine fracture seen. No aggressive marrow pattern or malalignment. Paraspinal tissues are normal in thickness. No paraspinal abscess or hematoma seen. There is evidence of significant disc herniations at L3-4 and L4-5. These appear to result in high-gr zully canal narrowing. IMPRESSION: No acute lumbar spine abnormality. Significant disc herniation suspected at L3-4 and L4-5 resulting in high-grade canal narrowing. Follo wu MRI on a nonemergent basis would be advised.
--- NOTE | 2021-05-18 16:07 | ER ---
Nurse's Notes [facility] Name: Drew Jc Age: 40 yrs Sex: Male : 1980 Arrival Date: 05/18/2021 Time: 14:09 Bed 26 Private MD: Diagnosis: Intervertebral disc disorders with radiculopathy, lumbar region Presentation: 05/18 14:18 Coronavirus screen: Client denies travel out of the [place] in the last 14 days. Ebola ll1 Screen: Patient denies travel to an Ebola-affected area in the 21 days before illness onset. Risk Assessment: Do you want to hurt yourself or someone else? Patient reports no desire to harm self or others. 14:18 Method Of Arrival: Ambulatory ll1 14:25 Chief complaint: Patient states: Low back pain started Thursday after picking up a ll1 small box at work. Was seen at [facility], x-rays negative. Flexeril and Lodine are not helping. Pain radiates down both legs now. Initial Sepsis Screen: Does the patient meet any 2 criteria? No. Patient's initial sepsis screen is negative. Does the patient have a suspected source of infection? Yes: Bone or joint infection. Onset of symptoms was May 15, 2021. 14:25 Acuity: COCO 3 ll1 Triage Assessment: 15:25 General: Appears distressed, Behavior is cooperative, appropriate for age. oh Historical: - Allergies: 14:18 No Known Allergies; ll1 - PMHx: 14:18 Diabetes - NIDDM; Hypothyroidism; Hypertension; Pancreatitis; ll1 - PSHx: 14:24 Tonsillectomy; Appendectomy; Cholecystectomy; meniscus repair; R ankle SX; ll1 - Immunization history:: Adult Immunizations up to date, Client reports receiving the 2nd dose of the Covid vaccine. - Social history:: Smoking status: Patient denies any tobacco usage or history of. - Family history:: not pertinent. - Hospitalizations: : No recent hospitalization is reported. Screenin:25 Abuse screen: Denies threats or abuse. Nutritional screening: No deficits noted. oh Tuberculosis screening: No symptoms or risk factors identified. Fall Risk None identified. Assessment: 15:23 Pain: Complains of pain in back pain worse upon changing position, worswe upon oh ambulation. pt hurt his back lifting a box at work. Musculoskeletal:. 17:01 Reassessment: Patient appears in no apparent distress at this time. Patient and/or tw2 family updated on plan of care and expected duration. Pain level reassessed. Patient is alert, oriented x 3, equal unlabored respirations, skin warm/dry/pink. Patient states feeling better. Vital Signs: 14:25 BP 139 / 92; Pulse 89; Resp 17; Temp 99.2; Pulse Ox 97% ; Weight 118.84 kg; Height 5 ll1 ft. 8 in. (172.72 cm); Pain 9/10; 17:01 BP 137 / 80; Pulse 81; Resp 17; Pulse Ox 98% on R/A; oh 14:25 Body Mass Index 39.84 (118.84 kg, 172.72 cm) ll1 ED Course: 14:09 Patient arrived in ED. rg4 14:18 Arm band placed on. ll1 14:28 Triage completed. ll1 14:34 Hai Fitzgerald, PRATEEK is Primary Nurse. oh 14:50 Wilfrido Edgar MD is Attending Physician. rn 15:23 Inserted saline lock: 20 gauge in right antecubital area, using aseptic technique. tw2 ,using aseptic technique. by ED staff. 15:25 Bed in low position. Call light in reach. oh 15:29 CT Lumbar Spine Wo Con In Process Unspecified. EDMS 16:59 No provider procedures requiring assistance completed. IV discontinued, intact, tw2 bleeding controlled, No redness/swelling at site. Pressure dressing applied. Administered Medications: 15:23 Drug: Decadron - Dexamethasone 10 mg Route: IVP; Site: left antecubital; oh 16:59 Follow up: Response: No adverse reaction tw2 15:23 Drug: Demerol (meperidine) 50 mg Route: IVP; Site: left antecubital; oh 16:59 Follow up: Response: No adverse reaction; Pain is decreased; RASS: Alert and Calm (0) tw2 15:23 Drug: Ketorolac 15 mg Route: IVP; Site: left antecubital; oh 16:45 Follow up: Response: No adverse reaction; Pain is decreased tw2 16:45 Drug: morphine 4 mg {Note: RASS 0.} Route: IVP; Site: right antecubital; tw2 16:59 Follow up: Response: No adverse reaction; Pain is decreased; RASS: Alert and Calm (0) Outcome: 16:07 Discharge ordered by . rn 17:00 Discharged to home ambulatory. tw2 17:00 Condition: stable 17:00 Discharge instructions given to patient, Instructed on discharge instructions, follow up and referral plans. medication usage, Demonstrated understanding of instructions, follow-up care, medications, Prescriptions given X 2. 17:01 Patient left the ED. Signatures: Dispatcher [employer] EDMS Wilfrido Edgar MD MD rn Wise, Tara RN RN 2 Joy Watson 4 Joelle Tapia RN RN 1 Hai Fitzgerald RN RN oh
--- NOTE | 2021-05-18 16:08 | EDPHYS ---
Physician Documentation [facility] Name: Drew Jc Age: 40 yrs Sex: Male : 1980 Arrival Date: 05/18/2021 Time: 14:09 Bed 26 Private MD: ED Physician Wilfrdio Edgar HPI: 05/18 16:00 This 40 yrs old Male presents to ER via Ambulatory with complaints of Back rn Pain, Leg Pain. 16:00 The patient presents with pain that is acute, with no known mechanism of injury. The rn symptoms are located in the low back. Onset: The symptoms/episode began/occurred 2 day(s) ago. The pain radiates to the right leg. Associated signs and symptoms: Pertinent negatives: abdominal pain, chest pain, fever, hematuria, incontinence, nausea, numbness, tingling, urinary retention, vomiting, weakness. The problem was sustained when bending over. Modifying factors: The patient symptoms are alleviated by remaining still, the patient symptoms are aggravated by any movement. Severity of symptoms: At their worst the symptoms were severe, in the emergency department the symptoms are unchanged. The patient has not experienced similar symptoms in the past. The patient has been recently seen by a physician:. Patient reports lifting small box 2 days ago, not very heavy, stood up and immediate severe lower back pain that radiates down the right leg. No previous back injury or back pain. No weakness of extremities. No urinary or bowel incontinence or retention. No fever. Prescribed Lodine and Flexeril and still having pain. Historical: - Allergies: 14:18 No Known Allergies; ll1 - PMHx: 14:18 Diabetes - NIDDM; Hypothyroidism; Hypertension; Pancreatitis; ll1 - PSHx: 14:24 Tonsillectomy; Appendectomy; Cholecystectomy; meniscus repair; R ankle SX; ll1 - Immunization history:: Adult Immunizations up to date, Client reports receiving the 2nd dose of the Covid vaccine. - Social history:: Smoking status: Patient denies any tobacco usage or history of. - Family history:: not pertinent. - Hospitalizations: : No recent hospitalization is reported. ROS: 16:00 Constitutional: Negative for fever, chills, and weight loss, Eyes: Negative for injury, rn pain, redness, and discharge, Neck: Negative for injury, pain, and swelling, Cardiovascular: Negative for chest pain, palpitations, and edema, Respiratory: Negative for shortness of breath, cough, wheezing, and pleuritic chest pain, Abdomen/GI: Negative for abdominal pain, nausea, vomiting, diarrhea, and constipation, Back: Negative for injury, positive for right lower back pain : Negative for injury, bleeding, discharge, and swelling, MS/Extremity: Negative for injury and deformity, Skin: Negative for injury, rash, and discoloration, Neuro: Negative for headache, weakness, numbness, tingling, and seizure. Exam: 16:00 Constitutional: This is a well developed, well nourished patient who is awake, alert, rn appears uncomfortable Head/Face: Normocephalic, atraumatic. Back: No spinal tenderness. Painful twisting range of motion and mild tenderness right paralumbar region. Skin: Warm, dry MS/ Extremity: Pulses equal, no cyanosis. Neurovascular intact. Neuro: Awake and alert, GCS 15, oriented to person, place, time, and situation. Cranial nerves II-XII grossly intact. Motor strength 5/5 in all extremities. Sensory grossly intact. Positive straight leg raise and cross straight leg raise. Vital Signs: 14:25 BP 139 / 92; Pulse 89; Resp 17; Temp 99.2; Pulse Ox 97% ; Weight 118.84 kg; Height 5 ll1 ft. 8 in. (172.72 cm); Pain 9/10; 17:01 BP 137 / 80; Pulse 81; Resp 17; Pulse Ox 98% on R/A; oh 14:25 Body Mass Index 39.84 (118.84 kg, 172.72 cm) ll1 MDM: 14:50 Patient medically screened. rn 16:06 Differential diagnosis: arthritis, Osteoarthritis ruptured disc, spinal injury, rn vertebral fracture, Disc herniation, radiculopathy, muscle spasm. Data reviewed: vital signs, nurses notes, radiologic studies, CT scan, and as a result, I will discharge patient. Counseling: I had a detailed discussion with the patient and/or guardian regarding: the historical points, exam findings, and any diagnostic results supporting the discharge/admit diagnosis, radiology results, the need for outpatient follow up, to return to the emergency department if symptoms worsen or persist or if there are any questions or concerns that arise at home. Response to treatment: the patient's symptoms have markedly improved after treatment, and as a result, I will discharge patient. Special discussion: I discussed with the patient/guardian in detail that at this point there is no indication for admission to the hospital. It is understood, however, that if the symptoms persist or worsen the patient needs to return immediately for re-evaluation. Further emergent ED testing is not indicated at this point in time. I discussed with the patient/guardian in detail the need to arrange with the PCP or specialist further outpatient testing, MRI, Based on the history and exam findings, there is no indication for further emergent testing or inpatient evaluation. I discussed with the patient/guardian the need to see the back specialist for further evaluation of the symptoms. 05/18 15:02 Order name: CT Lumbar Spine Wo Con; Complete Time: 15:51 rn 05/18 15:02 Order name: IV Start; Complete Time: 15:23 rn Administered Medications: 15:23 Drug: Decadron - Dexamethasone 10 mg Route: IVP; Site: left antecubital; oh 16:59 Follow up: Response: No adverse reaction tw2 15:23 Drug: Demerol (meperidine) 50 mg Route: IVP; Site: left antecubital; oh 16:59 Follow up: Response: No adverse reaction; Pain is decreased; RASS: Alert and Calm (0) tw2 15:23 Drug: Ketorolac 15 mg Route: IVP; Site: left antecubital; oh 16:45 Follow up: Response: No adverse reaction; Pain is decreased tw2 16:45 Drug: morphine 4 mg {Note: RASS 0.} Route: IVP; Site: right antecubital; tw2 16:59 Follow up: Response: No adverse reaction; Pain is decreased; RASS: Alert and Calm (0) tw2 Disposition Summary: 05/18/21 16:07 Discharge Ordered Location: Home rn Problem: new rn Symptoms: have improved rn Condition: Stable rn Diagnosis - Intervertebral disc disorders with radiculopathy, lumbar region rn Followup: rn - With: Private Physician - When: As needed - Reason: Recheck today's complaints, Re-evaluation by your physician Discharge Instructions: - Discharge Summary Sheet rn - Herniated Disk rn - Lumbosacral Radiculopathy rn Forms: - Medication Reconciliation Form rn - Thank You Letter rn - Antibiotic emergency room rn - Prescription Opioid Use rn - Work release form eb Prescriptions: - Tramadol 50 mg Oral Tablet - take 1 tablet by ORAL route every 8 hours as needed; 15 tablet; Refills: 0, rn Product Selection Permitted - Medrol (Urban) 4 mg Oral Tablets, Dose Pack - take 1 tablet by ORAL route as directed - follow package instructions; 1 rn packet; Refills: 0, Product Selection Permitted Signatures: Dispatcher [employer] Wilfrido Barba MD MD rn Wise, Tara RN RN tw2 Joelle Tapia RN RN 1 Hai Fitzgerald, RN RN oh
[2021-05-18 17:07] VITALS: BP 139/92; TEMP 99.2; O2SAT 97
[2021-05-18] MEDS ORDERED: MORPHINE 4 MG/ML SYR ONE (17:08)
== END 2021-05-18 17:01 | disposition home or self-care (01) ==
LOC: ER 14:07
DX: M51.16 Intervertebral disc disorders with radiculopathy, lumbar region (principal)
CPT/HCPCS: 72131; 96374; 96375; 99284; J1100; J2175

== ENCOUNTER 2021-10-07 11:08 | Inpatient (IN) | payer BC, OTHER ==
--- OUTSIDE RECORDS SUMMARY | 2021-10-07 11:11 | XMS REPORT | Continuity of Care Document ---
:1980 Author Organization [facility] t Address [address] [place] [address] Care Team Providers Name Role Phone Doctor Unassigned, Name Attending Clinician Unavailable Parvin [employer]STRUCTION[employer]ER Attending Clinician Pob1, Care Clinic Attending Clinician Unavailable Dionte Jarquin Attending Clinician Dionte CHAPMAN Attending Clinician Unavailable DR KRISTY Attending Clinician Unavailable DR KRISTY Admitting Clinician Unavailable Payers Payer Name Policy Type Policy Number Effective Date Expiration Date S ource Problems Condition Condition Condition Status Onset Resolution Last Treating Co mments Source Name Details Category Date Date Treatment Clinician Date No known No known Disease Unive rs active active ity of problems problems [facility] Allergies, Adverse Reactions, Alerts Allergy Allergy Status Severity Reaction(s) Onset Inactive Treating Comm ents Source Name Type Date Date Clinician NO KNOWN Drug Active Univers ALLERGIE Class ity of S [facility] Social History Social Habit Start Date Stop Date Quantity Comments Source Sex Assigned At Uni versity [facility] Smoking Status Start Date Stop Date Source Unknown if ever smoked Universit y [facility] Medications Ordered Filled Start Stop Current Ordering Indication Dosage Frequency Signature Comments Components Source Medication Medication Date Date Medication? Clinician (SIG) Name Name benzonatate 2019-0 2020- No [id number] 100mg Take 1 Univers (TESSALON 6-05 07-06 capsule by itMarly) 100 00:00: 04:59 mouth 3 [place] capsule 00 :00 (three) Medica l times Branch daily as needed for Cough for up to 30 days. benzonatate 0 2020- No [id number] 100mg Take 1 Univers (TESSALON 6-05 07-06 capsule by ity of [employer]) 100 00:00: 04:59 mouth 3 [place] capsule 00 :00 (three) Medica l times Branch daily as needed for Cough for up to 30 days. benzonatate 2020-0 2020- No [id number] 100mg Take 1 Univers (TESSALON 6-05 07-06 capsule by ity of [employer]) 100 00:00: 04:59 mouth 3 [place] mg capsule 00 :00 (three) Medica l times Branch daily as needed for Cough for up to 30 days. methylPREDN 2017-08 Yes Take by Un paola ISolone 0-13 mouth ity of (MEDROL, 00:00: SEE-INSTRU Tj as ANITA,) 4 mg 00 CTIONS. Medica l tablets follow Branch package directions naproxen 2017-08 Yes 550mg Take 1 Univer s sodium 0-13 tablet by ity of (ANAPROX 00:00: mouth 2 [place] DS) 550 mg 00 (two) Medical tablet times Branch daily with meals. acetaminoph 2017-08 Yes 1{tbl} Take 1 Un [place] en-codeine 0-13 tablet by ity of 300-30 mg 00:00: mouth [place] tablet 00 every 4 Medical (four) Branch hours as needed for Pain (scale 7-10). methylPREDN 2017-08 Yes Take by Un paola ISolone 0-13 mouth ity of (MEDROL, 00:00: SEE-INSTRU Tj as ANITA,) 4 mg 00 CTIONS. Medica l tablets follow Branch package directions naproxen 2017-08 Yes 550mg Take 1 Univer s sodium 0-13 tablet by ity of (ANAPROX 00:00: mouth 2 [place] DS) 550 mg 00 (two) Medical tablet times Branch daily with meals. acetaminoph 2017-08 Yes 1{tbl} Take 1 Un paola en-codeine 0-13 tablet by ity of 300-30 mg 00:00: mouth [place] tablet 00 every 4 Medical (four) Branch hours as needed for Pain (scale 7-10). methylPREDN 2017-08 Yes Take by Un paola ISolone 0-13 mouth ity of (MEDROL, 00:00: SEE-INSTRU Tj as ANITA,) 4 mg 00 CTIONS. Medica l tablets follow Branch package directions naproxen 2017-08 Yes 550mg Take 1 Univer s sodium 0-13 tablet by ity of (ANAPROX 00:00: mouth 2 [place] DS) 550 mg 00 (two) Medical tablet times Branch daily with meals. acetaminoph 2017-08 Yes 1{tbl} Take 1 Un [place] en-codeine 0-13 tablet by ity of 300-30 mg 00:00: mouth [place] tablet 00 every 4 Medical (four) Branch hours as needed for Pain (scale 7-10). methylPREDN 2017-08 Yes Take by Un paola ISolone 0-13 mouth ity of (MEDROL, 00:00: SEE-INSTRU Tj as ANITA,) 4 mg 00 CTIONS. Medica l tablets follow Branch package directions naproxen 2017-08 Yes 550mg Take 1 Univer s sodium 0-13 tablet by ity of (ANAPROX 00:00: mouth 2 [place] DS) 550 mg 00 (two) Medical tablet times Branch daily with meals. acetaminoph 2017-08 Yes 1{tbl} Take 1 Un paola en-codeine 0-13 tablet by ity of 300-30 mg 00:00: mouth [place] tablet 00 every 4 Medical (four) Branch hours as needed for Pain (scale 7-10). Vital Signs Vital Name Observation Time Observation Value Comments Source Systolic blood 2020-01-13 16:15:00 136 mm[Hg] [facility] Diastolic blood 2020-01-13 16:15:00 89 mm[Hg] [facility] 2020-01-13 16:15:00 99 /min [facility] Body temperature 2020-01-13 16:15:[address] [facility] Respiratory rate 2020-01-13 16:15:00 20 /min [facility] Body height 2020-01-13 16:15:00 175.3 cm [facility] Body weight 2020-01-13 16:15:00 119.296 kg [facility] BMI 2020-01-13 16:15:00 38.84 kg/m2 [facility] Oxygen saturation in 2020-01-13 16:15:00 98 /min [facility] Arterial blood by [facility] Pulse oximetry Branch Procedures Procedure Date / Time Performed Performing Clinician Sourc e DISABILITY/FMLA 2020-02-14 05:01:00 Doctor Unassigned, Ginger [facility] [place] Name Medical Branch Encounters Start End Encounter Admission Attending Care Care Encounter Source Date/Time Date/Time Type Type Clinicians Facility Department ID 2020-02-14 2020-02-14 Orders Doctor ARREDONDO [id number] Univers 00:00:00 00:00:00 Only Unassigned, GERA [id number] ity of [place] [facility] [id number] Tj as [phone] [facility] 009 Branch 2020-02-14 2020-02-14 Orders Doctor ARREDONDO [id number] 00:00:00 00:00:00 Only Unassigned, GERA [id number] [place] [facility] [id number] 2020-01-14 2020-01-14 Telephone [facility] [id number] Univers 00:00:00 00:00:00 [facility] HEALTH [id number] it y of [place] [id number] [facility] [phone] [facility] Primary & 370 Branch Specialty Care 2020-01-14 2020-01-14 Telephone [facility] [id number] 00:00:00 00:00:00 [facility] HEALTH [id number] [place] [id number] [phone] Primary & 370 Specialty Care 2020-01-13 2020-01-13 Urgent Pob1, Acute Care Clinic [facility] [id number] Univers 10:59:51 12:29:22 [facility] [id number] ity of [place] [id number] Tj as Professio [phone] [facility] 0[facility] Branch [address] 2020-01-13 2020-01-13 Outpatient R [facility] [id number] Univers 11:00:00 11:00:00 LORENA morin [facility] 2018-09-29 2018-09-29 Outpatient Helen WAGNER [facility] FUNMICECI 10 [id number] [facility] 05:51:00 10:08:[address] [facility] Results Test Description Test Time Test Comments Results Result Comments Source GLUCOMETER GLUCOSE- LAB USE ONLY 2018-09-29 06:34:00 Test Item Value Reference Range Interpretation Comme nts GLUCOMETER (test code = GMG) 99 mg/dL 70-100 CLEANED METERMeter ID: [id number] tor: [id number] CARMELA BRIAN
[2021-10-07] MEDS ORDERED: ASPIRIN 81 MG CHEWABLE TABLET ONE (11:49)
[2021-10-07] MEDS ORDERED: MORPHINE 2 MG/ML SYR ONE ×2 (11:49→16:21)
[2021-10-07] MEDS ORDERED: ONDANSETRON 4 MG/2 ML VIAL ONE (11:50)
[2021-10-07] MEDS ORDERED: NA CHLORIDE 0.9% 500 ML ONE (11:50)
[2021-10-07 11:51] LABS: Absolute Lymphocytes (CBC) 3.6 K/uL (0.7-4.9); Lymphocytes % 24.9 % (15.3-44.8); RBC Red Blood Cell Count 5.62 M/uL (4.33-5.43)
[2021-10-07 11:54] LABS: Protime INR 0.95
[2021-10-07 12:09] LABS: Albumin 3.8 g/dL (3.4-5.0); Bilirubin Direct 0.3 mg/dL (0-0.2); Bilirubin Total 0.8 mg/dL (0.2-1.0); Magnesium 2.1 mg/dL (1.8-2.4); Potassium 4.2 mmol/L (3.5-5.1); Protein, Total 8.2 g/dL (6.4-8.2); Troponin High Sensitivity 10.5 pg/mL (<58.9)
--- NOTE | 2021-10-07 12:25 | RAD REPORT ---
EXAM DESCRIPTION: RAD - Chest Single View - 10/07/2021 12:16 pm CLINICAL HISTORY: CHEST PAIN COMPARISON: Chest Pa And Lat (2 Views) dated 09/14/2019; Chest Single View dated 02/07/2019; Chest Singl e View dated 04/12/2018; Chest Single View dated 08/27/2016 FINDINGS: Lines: None. Lungs: No evidence of edema or pneumonia. Pleural: No significant pleural effusions or pneumothorax. Cardiac: The heart size is within normal limits. Bones: No acute fractures. Other: IMPRESSION: No acute cardiopulmonary disease.
--- NOTE | 2021-10-07 12:50 | ER ---
Nurse's Notes [facility] Name: Drew Jc Age: 41 yrs Sex: Male : 1980 Arrival Date: 10/07/2021 Time: 11:09 Bed 13 Private MD: Paul Herrmann B Diagnosis: Chest pain, unspecified Presentation: 10/07 11:14 Chief complaint: Patient states: B/P has been irregular over the weekend and this am jh6 stated that he started having tightness to chest, mid sternal. Dizziness today, no n/v with the feeling that he has to take a deep breath. Coronavirus screen: Vaccine status: Patient reports receiving the 2nd dose of the covid vaccine. Client denies travel out of the [place] in the last 14 days. Ebola Screen: Patient denies exposure to infectious person. Patient denies travel to an Ebola-affected area in the 21 days before illness onset. Initial Sepsis Screen: Does the patient meet any 2 criteria? No. Patient's initial sepsis screen is negative. Does the patient have a suspected source of infection? No. Patient's initial sepsis screen is negative. Risk Assessment: Do you want to hurt yourself or someone else? Patient reports no desire to harm self or others. Onset of symptoms was October 07, 2021. 11:14 Method Of Arrival: Ambulatory [facility] 11:14 Acuity: COCO 2 6 Triage Assessment: 11:18 General: Appears uncomfortable, Behavior is calm, cooperative. Pain: Complains of pain [facility] in mid-sternal area Pain currently is 6 out of 10 on a pain scale. Quality of pain is described as pressure, Is continuous. Cardiovascular: Reports chest pain, fatigue, lightheadedness, shortness of breath, Capillary refill < 3 seconds JVD is absent Pulses are all present. Rhythm is. Historical: - Allergies: 11:17 No Known Allergies; jh6 - PMHx: 11:17 Diabetes - NIDDM; Hypertension; Hypothyroidism; Pancreatitis; jh6 - Immunization history:: Client reports receiving the 2nd dose of the Covid vaccine. - Social history:: Smoking status: Patient reports the use of cigarette tobacco products, unknown amount. Screenin:38 Abuse screen: Denies threats or abuse. Denies injuries from another. Nutritional ph screening: No deficits noted. Tuberculosis screening: No symptoms or risk factors identified. Fall Risk None identified. Assessment: 12:00 Reassessment: Pt reports that pain has improved after IV morphine. ph 12:30 General: Appears in no apparent distress. comfortable, well groomed, Behavior is calm, ph cooperative, appropriate for age, Denies fever, feeling ill. Pain: Complains of pain in mid-sternal area Pain does not radiate. Pain began this morning. Neuro: Level of Consciousness is awake, alert, obeys commands, Oriented to person, place, time, situation, Reports dizziness, Denies weakness blurred vision headache. Cardiovascular: Reports chest pain, lightheadedness, nausea, Capillary refill < 3 seconds in bilateral fingers Patient's skin is warm and dry. Rhythm is regular Chest pain quality is sharp, is located in substernal area. Respiratory: Airway is patent Respiratory effort is even, unlabored, Denies shortness of breath. GI: Reports nausea, Patient currently denies abdominal pain, diarrhea, vomiting. : No signs and/or symptoms were reported regarding the genitourinary system. Derm: Skin is intact, is healthy with good turgor, Skin is pink, warm \\T\\ dry. Musculoskeletal: Circulation, motion, and sensation intact. Range of motion: intact in all extremities. 13:30 Reassessment: Patient appears in no apparent distress at this time. Patient and/or ph family updated on plan of care and expected duration. Pain level reassessed. Patient is alert, oriented x 3, equal unlabored respirations, skin warm/dry/pink. 14:25 Reassessment: Patient appears in no apparent distress at this time. Patient and/or ph family updated on plan of care and expected duration. Pain level reassessed. Patient is alert, oriented x 3, equal unlabored respirations, skin warm/dry/pink. Pt reports that pain is increasing, states, " The morphine helped but it didn't last very long." Bilateral blood pressures obtained per ERP order, similar readings and WNL but pt reports that that is low for him, he states that is normally 130s/80s. Vital Signs: 11:14 BP 115 / 78; Pulse 96; Resp 18; Temp 97.3(TE); Pulse Ox 100% on R/A; Weight 109.77 kg; jh6 Height 5 ft. 8 in. (172.72 cm); Pain 5/10; 13:30 BP 112 / 72; Pulse 81; Resp 18; Pulse Ox 100% on R/A; ph 14:30 BP 104 / 60 LA; Pulse 78; Resp 16; Pulse Ox 99% on R/A; ph 14:30 BP 105 / 65 RA; Pulse 76; ph 15:45 BP 108 / 68; Pulse 72; Resp 16; Pulse Ox 99% on R/A; ph 16:30 BP 117 / 70; Pulse 76; Resp 16; Pulse Ox 98% on R/A; ph 18:00 BP 110 / 62; Pulse 71; Resp 20; Temp 97.5; Pulse Ox 100% on R/A; ph 11:14 Body Mass Index 36.80 (109.77 kg, 172.72 cm) [facility] ED Course: 11:09 Patient arrived in ED. am2 11:09 Paul Herrmann MD is Private Physician. am2 11:17 Triage completed. [facility] 11:19 Arm band placed on left wrist. [facility] 11:26 Froylan Ahumada PA is PHCP. cp 11:26 Froylan Mariee MD is Attending Physician. cp 11:38 Patient has correct armband on for positive identification. Bed in low position. Call ph light in reach. Side rails up X 1. phototypesetting equipment monitor on. Pulse ox on. NIBP on. 11:38 Initial lab(s) drawn, by ut, sent to lab. Inserted saline lock: 20 gauge in right vg1 antecubital area, using aseptic technique. Blood collected. 11:39 Patient maintains SpO2 saturation greater than 95% on room air. ph 11:59 Nichelle Peres RN is Primary Nurse. ph 12:16 XRAY Chest (1 view) In Process Unspecified. EDMS 12:50 Eugenia Leon MD is Hospitalizing Provider. cp 19:11 Primary Nurse role handed off by Nichelle Peres RN mw2 19:25 No provider procedures requiring assistance completed. Patient admitted, IV remains in ph place. Administered Medications: 11:48 Drug: NS 0.9% 500 ml Route: IV; Rate: bolus; Site: right antecubital; vg1 13:00 Follow up: Response: No adverse reaction; IV Status: Completed infusion; IV Intake: ph 500ml 11:48 Drug: Zofran (Ondansetron) 4 mg Route: IVP; Site: right antecubital; vg1 19:23 Follow up: Response: No adverse reaction ph 11:50 Drug: morphine 2 mg Route: IVP; Site: right antecubital; vg1 11:52 Drug: Aspirin Chewable Tablet 324 mg Route: PO; vg1 19:22 Follow up: Response: No adverse reaction ph 14:30 Drug: NS 0.9% 500 ml Route: IV; Rate: 125 ml/hr; Site: right antecubital; ph 19:24 Follow up: Response: No adverse reaction; IV Status: Completed infusion; IV Intake: ph 500ml 14:35 Drug: NS 0.9% 500 ml Route: IV; Rate: bolus; Site: right antecubital; ph 16:30 Follow up: Response: No adverse reaction; IV Status: Completed infusion; IV Intake: ph 500ml 14:40 Drug: fentaNYL (PF) 25 mcg Route: IVP; Site: right antecubital; ph 19:24 Follow up: Response: No adverse reaction; RASS: Alert and Calm (0) ph 16:40 Drug: morphine 2 mg Route: IVP; Site: right antecubital; ph 19:23 Follow up: Response: No adverse reaction; RASS: Alert and Calm (0) ph Intake: 13:00 IV: 500ml; Total: 500ml. ph 16:30 IV: 500ml; Total: 1000ml. ph 19:24 IV: 500ml; Total: 1500ml. ph Outcome: 12:50 Decision to Hospitalize by Provider. cp 19:47 Admitted to Med/surg Report called to PRATEEK Engle ph 19:47 Condition: good 19:58 Patient left the ED. mw2 Signatures: Dispatcher [employer] EDMS Nichelle Peres RN RN ph Froylan Ahumada PA PA cp Jeannie Almanza am2 Zhao Jennings mw2 [place] RN RN vg1 Rose Marie Black RN RN jh6
--- NOTE | 2021-10-07 12:50 | EDPHYS ---
Physician Documentation [facility] Name: Drew Jc Age: 41 yrs Sex: Male : 1980 Arrival Date: 10/07/2021 Time: 11:09 Bed 13 Private MD: Paul Herrmann B ED Physician Froylan Mariee HPI: 10/07 11:35 This 41 yrs old Male presents to ER via Ambulatory with complaints of Chest cp Pain, Blood Pressure Problem. 11:35 The patient or guardian reports chest pain that is located primarily in the substernal cp area. 11:35 Onset: today. The pain does not radiate. cp 11:35 The chest pain is described as tightness. cp 11:35 Associated signs and symptoms: Pertinent positives: dizziness, shortness of breath, cp Pertinent negatives: abdominal pain, cough, diaphoresis, headache, lower extremity pain, lower extremity swelling, syncope, vomiting. Duration: The patient or guardian reports a single episode, that is still ongoing. 11:35 Patient reports checking blood pressure at home this past weekend and noticing it was cp low with systolic pressure in the 90's. Historical: - Allergies: 11:17 No Known Allergies; jh6 - PMHx: 11:17 Diabetes - NIDDM; Hypertension; Hypothyroidism; Pancreatitis; jh6 - Immunization history:: Client reports receiving the 2nd dose of the Covid vaccine. - Social history:: Smoking status: Patient reports the use of cigarette tobacco products, unknown amount. ROS: 11:40 Constitutional: Negative for body aches, chills, fever, poor PO intake. cp 11:40 Eyes: Negative for injury, pain, redness, and discharge. cp 11:40 ENT: Negative for drainage from ear(s), ear pain, sore throat, difficulty swallowing, difficulty handling secretions. 11:40 Neck: Negative for pain with movement, pain at rest, stiffness. 11:40 Cardiovascular: Positive for chest pain, Negative for edema, palpitations. 11:40 Respiratory: Positive for shortness of breath, at rest. Negative for cough, wheezing. 11:40 Abdomen/GI: Negative for abdominal pain, nausea, vomiting, and diarrhea. 11:40 Back: Negative for pain at rest, pain with movement. 11:40 Neuro: Positive for dizziness, Negative for altered mental status, headache, syncope, weakness. 11:40 All other systems are negative. Exam: 11:25 ECG was reviewed by the Attending Physician. cp 11:30 Constitutional: The patient appears in no acute distress, alert, awake, cp non-diaphoretic, non-toxic, well developed, well nourished, overweight 11:30 Head/Face: Normocephalic, atraumatic. cp 11:30 Eyes: Periorbital structures: appear normal, Pupils: equal, round, and reactive to light and accomodation, Extraocular movements: intact throughout, Conjunctiva: normal, no exudate, no injection, Sclera: no appreciated abnormality, Lids and lashes: appear normal, bilaterally. 11:30 ENT: External ear(s): are unremarkable, Nose: is normal, Mouth: Lips: moist, Oral mucosa: moist, Posterior pharynx: Airway: no evidence of obstruction, patent. 11:30 Neck: ROM/movement: is normal, is supple, without pain, no range of motions limitations, no nuchal rigidity. 11:30 Chest/axilla: Inspection: normal, Palpation: is normal, no crepitus, no tenderness. 11:30 Cardiovascular: Rate: normal, Rhythm: regular, Heart sounds: murmur, not appreciated, Edema: is not appreciated, JVD: is not appreciated. 11:30 Respiratory: the patient does not display signs of respiratory distress, Respirations: normal, no use of accessory muscles, no retractions, labored breathing, is not present, Breath sounds: are clear throughout, no decreased breath sounds, no stridor, no wheezing. 11:30 Abdomen/GI: Inspection: abdomen appears normal, Bowel sounds: active, all quadrants, Palpation: abdomen is soft and non-tender, in all quadrants. 11:30 Back: pain, is absent, ROM is normal. 11:30 Neuro: Orientation: to person, place \\T\\ time. Mentation: is normal, Motor: moves all fours, strength is normal, Sensation: is normal. Vital Signs: 11:14 BP 115 / 78; Pulse 96; Resp 18; Temp 97.3(TE); Pulse Ox 100% on R/A; Weight 109.77 kg; jh6 Height 5 ft. 8 in. (172.72 cm); Pain 5/10; 13:30 BP 112 / 72; Pulse 81; Resp 18; Pulse Ox 100% on R/A; ph 14:30 BP 104 / 60 LA; Pulse 78; Resp 16; Pulse Ox 99% on R/A; ph 14:30 BP 105 / 65 RA; Pulse 76; ph 15:45 BP 108 / 68; Pulse 72; Resp 16; Pulse Ox 99% on R/A; ph 16:30 BP 117 / 70; Pulse 76; Resp 16; Pulse Ox 98% on R/A; ph 18:00 BP 110 / 62; Pulse 71; Resp 20; Temp 97.5; Pulse Ox 100% on R/A; ph 11:14 Body Mass Index 36.80 (109.77 kg, 172.72 cm) 6 MDM: 11:31 Patient medically screened. brooke 11:32 Patient medically screened. brooke 12:00 Differential diagnosis: abnormal EKG, acute myocardial infarction, acute pericarditis, cp anxiety, chest wall pain, cholecystitis, Cholelithiasis pericarditis, pleurisy, pneumonia, pneumothorax, stable angina, unstable angina. 12:50 The patient was given aspirin in the Emergency Department. cp 12:50 Data reviewed: vital signs, nurses notes, lab test result(s), EKG, radiologic studies, cp plain films. Test interpretation: by ED physician or midlevel provider: ECG, plain radiologic studies. Physician consultation: Eugenia Leon MD was called at 12:45, was contacted at 12:45, regarding admission, to the telemetry unit. patient's condition. 10/07 11:32 Order name: Basic Metabolic Panel cp 10/07 11:32 Order name: CBC with Diff cp 10/07 11:32 Order name: LFT's; Complete Time: 12:36 cp 10/07 12:36 Interpretation: Normal except: ALK 136; BILID 0.3; GLOB 4.4; A/G 0.9. cp 10/07 11:32 Order name: Magnesium; Complete Time: 12:36 cp 10/07 11:32 Order name: NT PRO-BNP; Complete Time: 12:36 cp 10/07 11:32 Order name: PT-INR; Complete Time: 12:36 cp 10/07 11:32 Order name: Troponin HS; Complete Time: 12:36 cp 10/07 11:32 Order name: Basic Metabolic Panel; Complete Time: 12:36 EDMS 10/07 12:36 Interpretation: Normal except: NA 134; GLUC 160; BUN 38; CRE 1.81; GFR 41. 10/07 11:33 Order name: CBC with Automated Diff; Complete Time: 12:36 [facility] 10/07 12:37 Interpretation: Normal except: WBC 14.30; RBC 5.62; HCT 53.0; MCV 94.2; NEUT A 9.4. 10/07 14:48 Order name: CKMB Creatine Kinase MB [facility] 10/07 14:48 Order name: CKMB Creatine Kinase MB [facility] 10/07 14:48 Order name: CKMB Creatine Kinase MB [facility] 10/07 14:48 Order name: CKMB Creatine Kinase MB [facility] 10/07 14:48 Order name: Comprehensive Metabolic Panel [facility] 10/07 11:32 Order name: XRAY Chest (1 view); Complete Time: 12:36 10/07 14:48 Order name: Comprehensive Metabolic Panel [facility] 10/07 14:48 Order name: Creatine Phosphokinase [facility] 10/07 14:48 Order name: Creatine Phosphokinase [facility] 10/07 14:48 Order name: Creatine Phosphokinase [facility] 10/07 14:48 Order name: Creatine Phosphokinase [facility] 10/07 14:48 Order name: CBC with Automated Diff [facility] 10/07 14:48 Order name: CBC with Automated Diff [facility] 10/07 14:48 Order name: Lipid Profile [facility] 10/07 14:48 Order name: Lipid Profile [facility] 10/07 15:27 Order name: SARS-COV-2 RT PCR (Document "Date of Onset" if Symptomatic) 10/07 16:29 Order name: SARS-COV-2 RT PCR [facility] 10/07 18:17 Order name: Thyroid Stimulating Hormone [facility] 10/07 11:32 Order name: EKG; Complete Time: 11:33 10/07 11:32 Order name: Cardiac monitoring; Complete Time: 11:39 10/07 11:32 Order name: EKG - Nurse/Tech; Complete Time: 11:41 10/07 11:32 Order name: IV Saline Lock; Complete Time: 11:41 10/07 11:32 Order name: Labs collected and sent; Complete Time: 11:41 10/07 11:32 Order name: O2 Per Protocol; Complete Time: 11:39 10/07 11:32 Order name: O2 Sat Monitoring; Complete Time: 11:39 cp 10/07 12:41 Order name: Blood Pressure Recheck: bilateral upper extremity; Complete Time: 14:43 cp 10/07 14:48 Order name: CONS Physician Consult EDMS 10/07 14:48 Order name: CONS Physician Consult EDMS 10/07 14:48 Order name: Heart Healthy EDMS EC:25 Rate is 102 beats/min. Rhythm is regular. IA interval is normal. QRS interval is cp prolonged at 106 msec. QT interval is normal. T waves are Inverted in leads III, aVR. Interpreted by me. Reviewed by me. Administered Medications: 11:48 Drug: NS 0.9% 500 ml Route: IV; Rate: bolus; Site: right antecubital; vg1 13:00 Follow up: Response: No adverse reaction; IV Status: Completed infusion; IV Intake: ph 500ml 11:48 Drug: Zofran (Ondansetron) 4 mg Route: IVP; Site: right antecubital; vg1 19:23 Follow up: Response: No adverse reaction ph 11:50 Drug: morphine 2 mg Route: IVP; Site: right antecubital; vg1 11:52 Drug: Aspirin Chewable Tablet 324 mg Route: PO; vg1 19:22 Follow up: Response: No adverse reaction ph 14:30 Drug: NS 0.9% 500 ml Route: IV; Rate: 125 ml/hr; Site: right antecubital; ph 19:24 Follow up: Response: No adverse reaction; IV Status: Completed infusion; IV Intake: ph 500ml 14:35 Drug: NS 0.9% 500 ml Route: IV; Rate: bolus; Site: right antecubital; ph 16:30 Follow up: Response: No adverse reaction; IV Status: Completed infusion; IV Intake: ph 500ml 14:40 Drug: fentaNYL (PF) 25 mcg Route: IVP; Site: right antecubital; ph 19:24 Follow up: Response: No adverse reaction; RASS: Alert and Calm (0) ph 16:40 Drug: morphine 2 mg Route: IVP; Site: right antecubital; ph 19:23 Follow up: Response: No adverse reaction; RASS: Alert and Calm (0) ph Disposition Summary: 10/07/21 12:50 Hospitalization Ordered Hospitalization Status: Observation cp Provider: [place]daye, Ebima cp Condition: Stable cp Problem: new cp Symptoms: have improved cp Bed/Room Type: Standard cp Location: Telemetry/MedSurg (observation)(10/07/21 18:34) Room Assignment: 205(10/07/21 18:34) dw Diagnosis - Chest pain, unspecified cp Forms: - Medication Reconciliation Form cp - SBAR form cp Addendum: 10/10/2021 09:22 Co-signature as Attending Physician, Froylan Mariee MD I agree with the assessment and c estrada plan of care. Signatures: Dispatcher [employer] EDShyann Tay RN RN Froylan Perla MD MD cha Williams, Irene, RN RN iw Nichelle Peres RN RN Froylan Hammer PA PA cp Garcia, Victoria, RN RN vg1 Rose Marie Black RN RN jh6 Corrections: (The following items were deleted from the chart) 10/07 17:42 12:50 Telemetry/MedSurg (observation) cp iw 17:42 12:50 cp iw 18:34 17:42 [facility] ER HOLD iw dw 18:34 17:42 ERHOLD- iw dw 18:34 18:34 dw dw
[2021-10-07] MEDS ORDERED: NA CHLORIDE 0.9% 1,000 ML ONE (14:02)
[2021-10-07] MEDS ORDERED: FENTANYL CITR 100 MCG/2 ML ONE (14:30)
--- NOTE | 2021-10-07 14:42 | P.HP ---
Certification for Inpatient With expected LOS: >2 Midnights Patient will require the following post-hospital care: None Practitioner: I am a practitioner with admitting privileges, knowledge of patient current condition, hospital course, and medical plan of care. Services: Services provided to patient in accordance with Admission requirements found in Title 42 Section 412.3 of the Code of Federal Regulations Patient History Date of Service: 10/07/21 Reason for admission: substernal chest pain and low blood pressure History of Present Illness: 41-year-old 41-year-old male with past medical history of hypertension, diabetes mellitus, HLD, obesity presented to the hospital after noted with low blood pressure today at home. Patient states his usual blood pressure ranged in the 120s to 130s but was noted to be low to 90s systolic this a.m. He denies any dizziness or headache at the time. On arrival in the ED his blood pressure was 127 over 60s. He states he has been having anorexia with intermittent nausea since the last 2 days. He denies any overt vomiting. He states he has been having this epigastric pain radiating to the substernal area. He admits to history of heart block. He has a EGD done 6 months ago that was negative for gastric ulcer. He was placed on Protonix. He states he had a stress test done 1 year ago with his gear hobber at [place] and was reportedly told there was no lesions. He has never had a cardiac cath. He denies any fever or chills. He admits to history of tobacco use still actively smokes pot about 1 pack/year. He admits to family history of coronary artery disease states father from coronary disease in his 70s. Patient reports he had a lumbar injection of a steroid done last week. He states his home glucose has been ranging in the 150s since then. Allergies No Known Allergies Allergy (Verified 09/14/19 10:03) Home Medications: Butalb/Acetaminophen/Caffeine [Yqegfv-Pzspfrcj-Rzzz 50-300-40] 1 cap PO DAILYPRN PRN 04/12/18 Empagliflozin/Metformin HCl [Synjardy Xr 12.5-1,000 mg Tab] 1 tab PO BID 04/12/18 Gabapentin [Neurontin*] 100 mg PO BEDTIME 04/12/18 Guanfacine HCl [Guanfacine HCl ER] 4 mg PO DAILY 04/12/18 Irbesartan [Avapro*] 300 mg PO DAILY 04/12/18 Levothyroxine [Synthroid*] 0.088 mg PO 0630 04/12/18 Metoprolol Succinate [Toprol Xl] 100 mg PO BEDTIME 04/12/18 Omeprazole [Prilosec] 40 mg PO BID 04/12/18 Rosuvastatin [Crestor*] 5 mg PO BEDTIME 04/12/18 Ascorbic Acid [Vitamin C] 500 mg PO DAILY 09/14/19 Chlorthalidone [Hygroton 25mg Tab] 6.25 mg PO EVERY 3RD DAY 09/14/19 Codeine/APAP [Tylenol W/Codeine #3 tab] 1 tab PO Q4HP PRN #30 tab 09/14/19 Ezetimibe [Zetia] 10 mg PO BEDTIME 09/14/19 Magnesium Oxide [Mag 0X Tab] 500 mg PO DAILY 09/14/19 Metoclopramide [Reglan] 10 mg PO BID 09/14/19 NaCl 0.9% Irr Bottle [Ns Irrigation Bottle] 1,000 ml IRR DAILY #1 btl 09/14/19 Sulfamethoxazole/Trimethoprim [Bactrim Ds Tablet] 1 each PO BID #14 tablet 09/14/19 bisoproloL fumarate [Zebeta] 5 mg PO BEDTIME 09/14/19 ursodioL [Ursodiol] 250 mg PO BID 09/14/19 - Past Medical/Surgical History Diabetic: Yes -: NIDDM -: HTN -: hypothyroidism -: pancreatitis -: hyperlipidemia -: tonsillectomy -: paolo -: appe - Family History Father -: Heart disease, Hypertension, Diabetes, Kidney disease Mother -: Hypertension, Diabetes, Cancer Notes: pancreatic cancer Brother -: Hypertension, Diabetes - Social History Smoking Status: Light Tobacco smoker (1-9 cigarettes/day) Counseled patient to stop smoking for: less than 10 minutes Smoking therapy provided: No Patient receptive to therapy: No Alcohol use: No CD- Drugs: No Caffeine use: Yes Place of Residence: Home Review of Systems 10-point ROS is otherwise unremarkable Physical Examination - Physical Exam General: Alert, In no apparent distress, Oriented x3, Obese HEENT: Atraumatic, Normocephalic, PERRLA Neck: Supple, 2+ carotid pulse no bruit, JVD not distended Respiratory: Clear to auscultation bilaterally, Normal air movement Cardiovascular: No edema, Normal pulses, Regular rate/rhythm, Normal S1 S2 Gastrointestinal: Normal bowel sounds, Soft and benign, Non-distended, No ascites, Tenderness (epigastrium) Integumentary: No rashes, No breakdown Neurological: Normal gait, Normal speech, Normal strength at 5/5 x4 extr, Normal tone, Sensation intact, Cranial nerves 3-12 intact External genitalia: No lesions - Studies Laboratory Data (last 24 hrs) 10/07/21 11:39: PT 10.9, INR 0.95 10/07/21 11:39: WBC 14.30 H, Hgb 17.7, Hct 53.0 H, Plt Count 324 10/07/21 11:39: Sodium 134 L, Potassium 4.2, BUN 38 H, Creatinine 1.81 H, Glucose 160 H, Magnesium 2.1, Total Bilirubin 0.8, AST 30, ALT 65, Alkaline Phosphatase 136 H Assessment and Plan - Advance Directives Does patient have a Living Will: No Does patient have a Durable POA for Healthcare: No - Code Status/Comfort Care Code Status Assessed: Yes Physician Review: Patient Assessed, Agree with Above Assessment and Plan Physician Review Additional Text: EKGnormal sinus rhythm, incomplete right bundle branch blockno previous to compare Chest x-rayno acute pulmonary infiltrate Impression Atypical chest pain GERD with possible gastritis HLD Acute kidney failure Transient hypotension Diabetes mellitus Recent intra-thecal injection Plan We will admit to observation We will do serial set of cardiac enzymes Given complete right bundle branch block as well as intermittent hypotension, will consult cardiology for possible need for cardiac cath Since recent steroid injection, will start with CT to rule out aortic perforation We will start PPI increased to twice daily Elevated creatinine above baseline of 1.3 may be due to volume depletion, hold BP medications for now, start gentle IV fluid Nephrology consult to follow in a.m. will do gentle IV fluid hydration Continue insulin sliding scale with Accu-Cheks Follow hemoglobin A1c as well as lipid panel DVT prophylaxis subcutaneous Lovenox Advance directivefull code Time Spent Managing Pts Care (In Minutes): 65
[2021-10-07] MEDS ORDERED: ALBUTEROL 2.5 MG/3 ML NEB SOL NEB PRN (14:43)
[2021-10-07] MEDS ORDERED: HYDRALAZINE HCL 20 MG/ML VIAL IV PRN ×2 (14:46→16:57)
[2021-10-07] MEDS ORDERED: ENOXAPARIN 40 MG/0.4 ML SQ SCH (16:00)
[2021-10-07] MEDS: INSULIN -REGULAR HUMAN 50 UNIT/0.5 ML ML SQ SCH ×2 (16:30→22:15)
[2021-10-07 18:13] LABS: Creatine Phosphokinase 49 U/L (39-308)
[2021-10-07 18:15] LABS: CKMB Creatine Kinase MB < 1.0 ng/mL (1.0-3.6)
[2021-10-07] MEDS ORDERED: HOME MED 1 EA UNK (Omeprazole [Prilosec] 40 MG Capsule.Dr) PO SCH (21:00)
[2021-10-07] MEDS: ROSUVASTATIN 5 MG PO SCH (21:00)
[2021-10-07 21:56] VITALS: BMI 36.9
[2021-10-07] MEDS: NA CHLORIDE 0.9% 1,000 ML IV SCH (22:05)
[2021-10-07] MEDS: PANTOPRAZOLE 40MG TABLET PO SCH (22:06)
[2021-10-07] MEDS: ENOXAPARIN 40 MG/0.4 ML SQ SCH (22:06)
[2021-10-07] MEDS: EZETIMIBE 10 MG TAB PO SCH (22:07)
[2021-10-07] MEDS: MORPHINE 4 MG/ML SYR IV PRN (22:15)
[2021-10-07 22:58] LABS: Creatine Phosphokinase 46 U/L (39-308)
[2021-10-07 23:00] LABS: CKMB Creatine Kinase MB < 1.0 ng/mL (1.0-3.6)
[2021-10-08] MEDS: NA CHLORIDE 0.9% 1,000 ML IV SCH ×3 (01:00→16:37)
[2021-10-08] MEDS: MORPHINE 4 MG/ML SYR IV PRN ×5 (03:46→23:26)
[2021-10-08] MEDS: LEVOTHYROXINE SOD 0.088 MG TAB PO SCH (05:54)
[2021-10-08 06:31] LABS: Absolute Lymphocytes (CBC) 2.8 K/uL (0.7-4.9); Hematocrit 44.3 % (39.6-49.0); Lymphocytes % 30.3 % (15.3-44.8); MPV 9.5 fL (7.6-11.3); RBC Red Blood Cell Count 4.71 M/uL (4.33-5.43)
[2021-10-08 06:52] LABS: AST/SGOT 246 U/L (15-37); Alkaline Phosphatase 155 U/L (45-117); BUN Blood Urea Nitrogen 24 mg/dL (7-18); Bicarbonate 26 mmol/L (21-32); Bilirubin Total 1.2 mg/dL (0.2-1.0); CKMB Creatine Kinase MB < 1.0 ng/mL (1.0-3.6); Creatine Phosphokinase 36 U/L (39-308); Glucose Level 108 mg/dL (74-106); HDL Cholesterol 31 mg/dL (40-60); LDL Cholesterol, Calculated 84 (<130); Potassium 4.7 mmol/L (3.5-5.1); Protein, Total 6.6 g/dL (6.4-8.2); Sodium Level 135 mmol/L (136-145)
[2021-10-08 06:57] LABS: ALT/SGPT 315 U/L (12-78)
[2021-10-08] MEDS: INSULIN -REGULAR HUMAN 50 UNIT/0.5 ML ML SQ SCH ×4 (07:30→21:12)
[2021-10-08] MEDS: ONDANSETRON 4 MG/2 ML VIAL IV PRN (07:50)
[2021-10-08] MEDS: ENOXAPARIN 40 MG/0.4 ML SQ SCH (07:51)
[2021-10-08] MEDS: ASPIRIN EC 81 MG TAB PO SCH (07:51)
[2021-10-08] MEDS: PANTOPRAZOLE 40MG TABLET PO SCH ×2 (07:51→16:41)
--- NOTE | 2021-10-08 09:13 | EKG ---
Test Date: 2021-10-07 Test Time: 11:21:16 Director Of Sustainability: ULISES MEASUREMENT RESULTS: Intervals: Rate: 102 IA: 144 QRSD: 106 QT: 366 QTc: 477 [place]: P: 50 IA: 144 QRS: 184 T: 12 INTERPRETIVE STATEMENTS: Sinus tachycardia Right superior axis deviation Incomplete right bundle branch block Right ventricular hypertrophy Abnormal ECG Compared to ECG 05/10/2020 09:39:16 Right superior axis now present Incomplete right bundle-branch block now present Right ventricular hypertrophy now present Sinus rhythm no longer present Left-axis deviation no longer present Right bundle-branch block no longer present Electronically Signed On 10-08-21 09:09:24 [facility] DIRECTOR by Chicho Martinez
--- NOTE | 2021-10-08 11:52 | RAD REPORT ---
EXAM DESCRIPTION: CTChest Abd Pelvis Wo Con - 10/08/2021 11:44 am CLINICAL HISTORY: abdominal pain , recent intrathecal injection , r/ COMPARISON: Chest For Pe Angio dated 08/27/2016; Abdomen Pelvis W Contrast dated 05/10/2020 TECHNIQUE: CT of the chest, abdomen, and pelvis was performed. All CT scans are performed using dose optimization technique as appropriate and may include automated exposure control or mA/KV adjustment according to patient size. FINDINGS: Thorax: Chest Wall: No abnormal mass Lungs: No acute abnormality. Pleura: No effusions or pneumothorax. Mikala/Mediastinum: No lymphadenopathy. Aorta/Pulmonary Arteries: Unremarkable Heart: Normal size. Abdomen/Pelvis: Liver: No acute abnormality or suspicious lesions. Biliary: No biliary ductal dilatation. Cholecystectomy. Stomach: No significant focal abnormality. Duodenum: No significant focal abnormality. Pancreas: No significant abnormality. Spleen: No significant abnormality. Adrenal: No suspicious lesions. Kidney/ureter: No hydronephrosis. No renal calculi. Retroperitoneum: No retroperitoneal adenopathy. Vascular: No aneurysm. Bowel: No significant focal abnormality. No appendix identified. Peritoneum: No ascites or free air. Bladder: Mild circumferential bladder wall thickening which may be secondary to a component of chroni c bladder outlet obstruction. Reproductive: No adnexal masses. Bones: No acute fracture. Multilevel degenerative changes are present in the spine. Other: n/a IMPRESSION: No acute findings within the chest, abdomen, or pelvis. Nonspecific bladder wall thickening which could indicate cystitis or chronic bladder outlet obstructi on. This was also present on the CT from 05/10/2020.
[2021-10-08 11:57] LABS: AST/SGOT 191 U/L (15-37); Albumin 3.1 g/dL (3.4-5.0); Alkaline Phosphatase 157 U/L (45-117); BUN Blood Urea Nitrogen 22 mg/dL (7-18); Bicarbonate 25 mmol/L (21-32); Glucose Level 109 mg/dL (74-106); Potassium 4.2 mmol/L (3.5-5.1); Protein, Total 6.7 g/dL (6.4-8.2); Sodium Level 133 mmol/L (136-145)
[2021-10-08 11:58] LABS: ALT/SGPT 304 U/L (12-78)
--- NOTE | 2021-10-08 12:50 | P.PN ---
Subjective Date of Service: 10/08/21 Chief Complaint: substernal chest pain and low blood pressure Subjective: No new changes, No C/O voiced (Still having chest pain) Physical Examination - Vital Signs Temperature: 97.0 F Blood Pressure: 118/62 Pulse: 72 Respirations: 16 Pulse Ox (%): 96 Assessment And Plan Physician Review: Patient Assessed, Agree with Above Assessment and Plan Physician Review Additional Text: Physical examination HEENTmiddle-aged male,, not in any distress Neckno JVD no carotid bruit Respiratorygood air entry no crepitation, CardiovascularS1-S2 rate and rhythm regular GI. Bowel sounds positive Extremitiesno pedal edema no calf tenderness Neuro patient is alert oriented cranial nerves II to XII grossly intact EKGnormal sinus rhythm, incomplete right bundle branch blockno previous to compare Chest x-rayno acute pulmonary infiltrate CT chest/abdomen showsIMPRESSION: No acute findings within the chest, abdomen, or pelvis. Nonspecific bladder wall thickening which could indicate cystitis or chronic bladder outlet obstruction. This was also present on the CT from 05/10/2020. Impression Atypical chest pain GERD with possible gastritis HLD Acute kidney failure Transient hypotension Diabetes mellitus Recent intra-thecal injection Elevated LFTs Plan Blood pressure improved but stable now New onset elevated liver function tests may be due to transient hypotension preadmission Repeat LFTs show slight improvement today Continue to monitor LFT trend Since significant prior to hospitalization hypotension as well as still intermittent chest pain, despite ruled out with negative cardiac enzymes, will consult cardiology for possible cardiac cath now especially since incomplete right bundle melanie block CT of the chest and abdomen shows no vascular injury or perforation Continue PPIs/p increased to twice daily Improve renal function now, can proceed for cardiac cath Continue to hold all blood pressure medication Continue insulin sliding scale with Accu-Cheks Follow hemoglobin A1c as well as lipid panel DVT prophylaxis subcutaneous Lovenox Advance directivefull code
--- NOTE | 2021-10-08 13:30 | ECHO ---
HEIGHT: 5 ft 8 in WEIGHT: 243 lb 0 oz DATE OF STUDY: 10/08/[address]: Chicho Martinez MD 2-DIMENSIONAL: YES M.MODE: YES DOPPLER: YES COLOR FLOW: YES TDS: NO PORTABLE: NO DEFINITY: NO BUBBLE STUDY: NO DIAGNOSIS: SHORTNESS OF BREATH, CHEST PAIN CARDIAC HISTORY: CATHERIZATION: SURGERY: PROSTHETIC VALVE: PACEMAKER: MEASUREMENTS (cm) DIASTOLIC (NORMALS) SYSTOLIC (NORMALS) IVSd 1.2 (0.6-1.2) LA Diam 3.3 (1.9-4.0) LVEF 79% LVIDd 3.7 (3.5-5.7) LVIDs 2.0 (2.0-3.5) %FS 47% LVPWd 1.2 (0.6-1.2) Ao Diam 2.6 (2.0-3.7) 2 DIMENSIONAL ASSESSMENT: RIGHT ATRIUM: NORMAL LEFT ATRIUM: NORMAL RIGHT VENTRICLE: NORMAL LEFT VENTRICLE: NORMAL TRICUSPID VALVE: NORMAL MITRAL VALVE: NORMAL PULMONIC VALVE: NORMAL AORTIC VALVE: NORMAL PERICARDIAL EFFUSION: NONE AORTIC ROOT: NORMAL LEFT VENTRICULAR WALL MOTION: NORMAL DOPPLER/COLOR FLOW: NORMAL COMMENTS: NORMAL 2D ECHOCARDIOGRAM WITH DOPPLER. NO WALL MOTION ABNORMALITY. NO EFFUSION. TECHNOLOGIST: Olya KHOURY
--- NOTE | 2021-10-08 20:18 | P.CNS ---
Date of Consult: 10/08/21 Reason for Consult: DORA Requesting Physician: Eugenia Leon Chief Complaint: substernal chest pain and low blood pressure History of Present Illness: 41-year-old 41-year-old male with past medical history of hypertension, diabetes mellitus, HLD, obesity presented to the hospital after noted with low blood pressure today at home. Patient states his usual blood pressure ranged in the 120s to 130s but was noted to be low to 90s systolic this a.m. He denies any dizziness or headache at the time. On arrival in the ED his blood pressure was 127 over 60s. He states he has been having anorexia with intermittent nausea since the last 2 days. He denies any overt vomiting. He states he has been having this epigastric pain radiating to the substernal area. He admits to history of heart block. He has a EGD done 6 months ago that was negative for gastric ulcer. He was placed on Protonix. 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 He has never had a cardiac cath. He denies any fever or chills. He admits to history of tobacco use still actively smokes pot about 1 pack/year. He admits to family history of coronary artery disease states father from coronary disease in his 70s. Patient reports he had a lumbar injection of a steroid done last week. He states his home glucose has been ranging in the 150s since then. 11:35 This 41 yrs old Male presents to ER via Ambulatory with complaints of Chest cp Pain, Blood Pressure Problem. 11:35 The patient or guardian reports chest pain that is located primarily in the substernal cp area. 11:35 Onset: today. The pain does not radiate. cp 11:35 The chest pain is described as tightness. cp 11:35 Associated signs and symptoms: Pertinent positives: dizziness, shortness of breath, cp Pertinent negatives: abdominal pain, cough, diaphoresis, headache, lower extremity pain, lower extremity swelling, syncope, vomiting. Duration: The patient or guardian reports a single episode, that is still ongoing. 11:35 Patient reports checking blood pressure at home this past weekend and noticing it was cp low with systolic pressure in the 90's. Allergies No Known Allergies Allergy (Verified 09/14/19 10:03) Home medications list reviewed: Yes Home Medications: Butalb/Acetaminophen/Caffeine [Sthooq-Xupwvzqv-Uovq 50-300-40] 1 cap PO DAILYPRN PRN 04/12/18 Empagliflozin/Metformin HCl [Synjardy Xr 12.5-1,000 mg Tab] 1 tab PO BID 04/12/18 Gabapentin [Neurontin*] 100 mg PO BEDTIME 04/12/18 Guanfacine HCl [Guanfacine HCl ER] 4 mg PO DAILY 04/12/18 Irbesartan [Avapro*] 300 mg PO DAILY 04/12/18 Levothyroxine [Synthroid*] 0.088 mg PO 0630 04/12/18 Metoprolol Succinate [Toprol Xl] 100 mg PO BEDTIME 04/12/18 Omeprazole [Prilosec] 40 mg PO BID 04/12/18 Rosuvastatin [Crestor*] 5 mg PO BEDTIME 04/12/18 Ascorbic Acid [Vitamin C] 500 mg PO DAILY 09/14/19 Chlorthalidone [Hygroton 25mg Tab] 6.25 mg PO EVERY 3RD DAY 09/14/19 Codeine/APAP [Tylenol W/Codeine #3 tab] 1 tab PO Q4HP PRN #30 tab 09/14/19 Ezetimibe [Zetia] 10 mg PO BEDTIME 09/14/19 Magnesium Oxide [Mag 0X Tab] 500 mg PO DAILY 09/14/19 Metoclopramide [Reglan] 10 mg PO BID 09/14/19 NaCl 0.9% Irr Bottle [Ns Irrigation Bottle] 1,000 ml IRR DAILY #1 btl 09/14/19 Sulfamethoxazole/Trimethoprim [Bactrim Ds Tablet] 1 each PO BID #14 tablet 09/14/19 bisoproloL fumarate [Zebeta] 5 mg PO BEDTIME 09/14/19 ursodioL [Ursodiol] 250 mg PO BID 09/14/19 - Past Medical/Surgical History Diabetic: Yes -: NIDDM -: HTN -: hypothyroidism -: pancreatitis -: hyperlipidemia -: tonsillectomy -: paolo -: appe - Family History Father Medical History: Heart disease, Hypertension, Diabetes, Kidney disease Mother Medical History: Hypertension, Diabetes, Cancer Notes: pancreatic cancer Brother Medical History: Hypertension, Diabetes - Social History Smoking Status: Current every day smoker Alcohol use: No CD- Drugs: No Caffeine use: Yes Place of Residence: Home Review of Systems 10-point ROS is otherwise unremarkable General: Weakness, Malaise Physical Examination Temp Pulse Resp BP Pulse Ox 97.1 F 82 15 129/67 95 10/08/21 16:00 10/08/21 16:00 10/08/21 16:00 10/08/21 16:00 10/08/21 16:00 General: In no apparent distress, Oriented x3, Cooperative HEENT: Atraumatic Neck: Supple Respiratory: Clear to auscultation bilaterally Cardiovascular: Regular rate/rhythm, Edema Gastrointestinal: Soft and benign, Non-distended Musculoskeletal: No clubbing, No contractures Integumentary: No rashes, No cyanosis Neurological: Normal speech Laboratory Data (last 24 hrs) 10/08/21 11:25: Sodium 133 L, Potassium 4.2, BUN 22 H, Creatinine 0.83, Glucose 109 H, Total Bilirubin 1.0, AST 191 H, ALT 304 H*, Alkaline Phosphatase 157 H 10/08/21 05:38: Sodium 135 L, Potassium 4.7, BUN 24 H, Creatinine 0.88, Glucose 108 H, Total Bilirubin 1.2 H, AST 246 H D, ALT 315 H* D, Alkaline Phosphatase 155 H, Triglycerides 112, Cholesterol 137, HDL Cholesterol 31 L, Cholesterol/HDL Ratio 4.42 10/08/21 05:38: WBC 9.20 D, Hgb 15.0 D, Hct 44.3 D, Plt Count 212 D Imagings Data: LEFT VENTRICULAR WALL MOTION: NORMAL DOPPLER/COLOR FLOW: NORMAL COMMENTS: NORMAL 2D ECHOCARDIOGRAM WITH DOPPLER. NO WALL MOTION ABNORMALITY. NO EFFUSION. EXAM DESCRIPTION: RAD - Chest Single View - 10/07/2021 12:16 pm CLINICAL HISTORY: CHEST PAIN COMPARISON: Chest Pa And Lat (2 Views) dated 09/14/2019; Chest Single View dated 02/07/2019; Chest Single View dated 04/12/2018; Chest Single View dated 08/27/2016 FINDINGS: Lines: None. Lungs: No evidence of edema or pneumonia. Pleural: No significant pleural effusions or pneumothorax. Cardiac: The heart size is within normal limits. Bones: No acute fractures. Other: IMPRESSION: No acute cardiopulmonary disease. EXAM DESCRIPTION: CTChest Abd Pelvis Wo Con - 10/08/2021 11:44 am CLINICAL HISTORY: abdominal pain , recent intrathecal injection , r/ COMPARISON: Chest For Pe Angio dated 08/27/2016; Abdomen Pelvis W Contrast dated 05/10/2020 TECHNIQUE: CT of the chest, abdomen, and pelvis was performed. All CT scans are performed using dose optimization technique as appropriate and may include automated exposure control or mA/KV adjustment according to patient size. FINDINGS: Thorax: Chest Wall: No abnormal mass Lungs: No acute abnormality. Pleura: No effusions or pneumothorax. Mikala/Mediastinum: No lymphadenopathy. Aorta/Pulmonary Arteries: Unremarkable Heart: Normal size. Abdomen/Pelvis: Liver: No acute abnormality or suspicious lesions. Biliary: No biliary ductal dilatation. Cholecystectomy. Stomach: No significant focal abnormality. Duodenum: No significant focal abnormality. Pancreas: No significant abnormality. Spleen: No significant abnormality. Adrenal: No suspicious lesions. Kidney/ureter: No hydronephrosis. No renal calculi. Retroperitoneum: No retroperitoneal adenopathy. Vascular: No aneurysm. Bowel: No significant focal abnormality. No appendix identified. Peritoneum: No ascites or free air. Bladder: Mild circumferential bladder wall thickening which may be secondary to a component of chronic bladder outlet obstruction. Reproductive: No adnexal masses. Bones: No acute fracture. Multilevel degenerative changes are present in the spine. Other: n/a IMPRESSION: No acute findings within the chest, abdomen, or pelvis. Nonspecific bladder wall thickening which could indicate cystitis or chronic bladder outlet obstruction. This was also present on the CT from 05/10/2020. Conclusions/Impression: DORA likely due to hypovolemia/ hypotension -No NSAIDs -Continue IVF Hyponatremia -Continue IVF with NS HTN complicated by hypotension -Hold antihypertensives at this time LE Edema -Daily weight DM II -RISS Thank you kindly for the consultation.
[2021-10-08] MEDS: ROSUVASTATIN 5 MG PO SCH (21:00)
[2021-10-08] MEDS: EZETIMIBE 10 MG TAB PO SCH (21:12)
[2021-10-09] MEDS: MORPHINE 4 MG/ML SYR IV PRN ×5 (04:53→23:47)
[2021-10-09] MEDS: NA CHLORIDE 0.9% 1,000 ML IV SCH ×2 (06:08→17:25)
[2021-10-09] MEDS: LEVOTHYROXINE SOD 0.088 MG TAB PO SCH (06:09)
[2021-10-09 06:26] LABS: ALT/SGPT 246 U/L (12-78); AST/SGOT 98 U/L (15-37); Albumin 3.3 g/dL (3.4-5.0); Alkaline Phosphatase 164 U/L (45-117); BUN Blood Urea Nitrogen 18 mg/dL (7-18); Bicarbonate 29 mmol/L (21-32); Bilirubin Total 0.8 mg/dL (0.2-1.0); Glucose Level 120 mg/dL (74-106); Potassium 4.2 mmol/L (3.5-5.1); Protein, Total 7.4 g/dL (6.4-8.2); Sodium Level 138 mmol/L (136-145)
[2021-10-09] MEDS: INSULIN -REGULAR HUMAN 50 UNIT/0.5 ML ML SQ SCH ×4 (07:30→21:00)
[2021-10-09] MEDS: PANTOPRAZOLE 40MG TABLET PO SCH (07:30)
[2021-10-09] MEDS: ONDANSETRON 4 MG/2 ML VIAL IV PRN ×2 (08:45→17:34)
[2021-10-09] MEDS: ENOXAPARIN 40 MG/0.4 ML SQ SCH (08:46)
[2021-10-09] MEDS: ASPIRIN EC 81 MG TAB PO SCH (08:46)
[2021-10-09] MEDS: GABAPENTIN 100 MG CAP PO SCH ×3 (09:00→21:50)
[2021-10-09] MEDS ORDERED: PANTOPRAZOLE 40 MG INJ IVP SCH (09:38)
[2021-10-09] MEDS ORDERED: SODIUM CHLORIDE 0.9% 10ML INJ IV PRN (09:38)
--- NOTE | 2021-10-09 11:56 | RAD REPORT ---
EXAM DESCRIPTION: MRI - Brain Wo Cont - 10/09/2021 11:29 am CLINICAL HISTORY: syncope COMPARISON: No comparisons TECHNIQUE: Sagittal T1-weighted images were obtained along with PD/heavily T2-weighted and T2-FLAIR images. Axial DWI and ADC mapping sequences were also obtained along with coronal heavily T2-weighted images were obtained. FINDINGS: No intracranial hemorrhage, mass or acute infarction. There is no edema or shift of midlin e structures. No extra-axial fluid collections. Signal voids are seen as a normal finding in the refugio r intracranial vessels. No significant white matter disease. Mastoid air cells and paranasal sinuses are clear. IMPRESSION: Negative non-contrast MRI of the Brain.
--- NOTE | 2021-10-09 12:41 | RAD REPORT ---
EXAM DESCRIPTION: MRI - C Spine W Cont - 10/09/2021 11:29 am CLINICAL HISTORY: cervical radiculopathy COMPARISON: No comparisons TECHNIQUE: Sagittal T1-weighted, T2-weighted and T2-STIR sequences were obtained as well as axial T2 medic sequence obtained. FINDINGS: Cervical vertebral bodies are normal in height and alignment. No suspicious marrow edema o r marrow replacing process. Cerebellar tonsils and mid-line skull base show no suspicious finding. No significant finding at the C1 and C2 levels. C2-3 level: No significant findings. C3-4 level: Uncovertebral joint hypertrophy with small central disc protrusion. The uncovertebral savage nt hypertrophy results in severe right neural foraminal narrowing. The left neural foramen is adequat e. No central spinal stenosis. C4-5 level: Uncovertebral joint hypertrophy with posterior disc osteophyte complex results in mild bi lateral neural foraminal narrowing. No significant central spinal stenosis. C5-6 level: Uncovertebral joint hypertrophy and posterior disc osteophyte complex without significant neural foraminal narrowing or central spinal stenosis. C6-C7 level: Posterior disc osteophyte complex uncovertebral joint hypertrophy results in mild centra l spinal stenosis, severe left neural foraminal narrowing, and mild right neural foraminal narrowing. C7-T1 level: No significant findings. Cervical cord shows no focal narrowing, expansion or signal abnormality. IMPRESSION: Cervical spondylosis. With regard to a right-sided radiculopathy, this could be secondar y to degenerative changes at C3-4 which results in severe right neural foraminal narrowing. Mild cent ral spinal stenosis noted at C6-7. No cord signal abnormality.
--- NOTE | 2021-10-09 13:34 | P.PN ---
Subjective Date of Service: 10/09/21 Chief Complaint: substernal chest pain and low blood pressure Subjective: Improving, Other (Patient continues to have chest pain. His 2D echo was normal. These troponin was negative. He staying an additional night for transaminasemia.) Physical Examination - Vital Signs Temperature: 97.2 F Blood Pressure: 161/79 Pulse: 89 Respirations: 15 Pulse Ox (%): 97 - Physical Exam General: Alert, In no apparent distress, Cooperative, Obese HEENT: Atraumatic, Normocephalic Respiratory: Clear to auscultation bilaterally, Normal air movement Cardiovascular: Regular rate/rhythm, Normal S1 S2 Neurological: Normal speech, Normal affect Assessment And Plan - Current Problems (Diagnosis) (1) Chest discomfort Onset Date: 04/13/18 Current Visit: No Status: Acute (2) HTN (hypertension) Onset Date: 04/13/18 Current Visit: No Status: Acute Qualifiers: Hypertension type: essential hypertension (3) Elevated LFTs Onset Date: 04/13/18 Current Visit: No Status: Chronic Physician Review: Patient Assessed, Agree with Above Assessment and Plan Physician Review Additional Text: Assessment 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 He is admitted to the hospital after he been having some mild hypotensive events at home. Since this admission, he has been complaining of chest pain. His troponin and echocardiogram were normal. He had evidence of DORA and transaminasemia. Chest pain DORA-prerenal Transaminasemia-most likely due to hypotension Plan: His LFTs are trending down now that his blood pressure is normalized. CT abdomen and pelvis were negative I will start him on PPI trial and monitor him for 1 day He has been seen by cardiology for his chest pain. He has a normal echocardiogram and troponin. It is unlikely that is chest pain is of cardiac etiology DVT prophylaxis subcutaneous Lovenox Advance directivefull code
--- NOTE | 2021-10-09 20:36 | P.PN ---
Date of Service: 10/09/21 Vital Signs Temp Pulse Resp BP Pulse Ox 97.2 F 89 15 161/79 H 97 10/09/21 13:37 10/09/21 13:37 10/09/21 13:37 10/09/21 13:37 10/09/21 13:37 Medications Albuterol Sulfate (Albuterol 2.5 Mg/3 Ml Neb Alaina) 2.5 mg NEB [id number] PRN PRN Reason: SHORTNESS OF BREATH Aspirin (Aspirin Ec 81 Mg Tab) 81 mg PO DAILY [facility] Last Admin: 10/09/21 08:46 Dose: Not Given Documented by: Ezetimibe (Ezetimibe 10 Mg Tab) 10 mg PO BEDTIME [facility] Last Admin: 10/08/21 21:12 Dose: 10 mg Documented by: Enoxaparin Sodium (Enoxaparin 40 Mg/0.4 Ml) 40 mg SQ DAILY [facility] Last Admin: 10/09/21 08:46 Dose: Not Given Documented by: Gabapentin (Gabapentin 100 Mg Cap) 100 mg PO TID [facility] Last Admin: 10/09/21 13:11 Dose: 100 mg Documented by: Home Med (Home Med [Rosuvastatin 5 Mg Tab]) 1 ea PO BEDTIME [facility] Last Admin: 10/08/21 21:00 Dose: Not Given Documented by: Hydralazine HCl (Hydralazine Hcl 20 Mg/Ml Vial) 10 mg IV Q6HP PRN PRN Reason: FOR SBP>160 OR DBP>100 MMHG Sodium Chloride (Ns 1000 Ml Ivbag) 1,000 mls @ 100 mls/hr IV .Q10H [facility] Last Admin: 10/09/21 17:25 Dose: 1,000 mls Documented by: Insulin Human Regular (Insulin -Regular Human 50 Unit/0.5 Ml Ml) 0 unit SQ ACHS [facility]; Protocol Last Admin: 10/09/21 15:57 Dose: Not Given Documented by: Levothyroxine Sodium (Levothyroxine Sod 0.088 Mg Tab) 0.088 mg PO 0630 [facility] Last Admin: 10/09/21 06:09 Dose: 0.088 mg Documented by: Morphine Sulfate (Morphine 4 Mg/Ml Syr) 2 mg IV Q4H PRN PRN Reason: Pain scale 5-7 (Moderate) Last Admin: 10/09/21 17:34 Dose: 2 mg Documented by: Ondansetron HCl (Ondansetron 4 Mg/2 Ml Vial) 4 mg IV Q8H PRN PRN Reason: NAUSEA / VOMITING Last Admin: 10/09/21 17:34 Dose: 4 mg Documented by: Pantoprazole Sodium (Pantoprazole 40 Mg Inj) 40 mg IVP DAILY [facility]; Protocol Last Admin: 10/09/21 09:49 Dose: 40 mg Documented by: Sodium Chloride (Flush Normal Saline 10 Ml) 10 ml IV BID JAN Last Admin: 10/09/21 08:46 Dose: 10 ml Documented by: Sodium Chloride (Sodium Chloride 0.9% 10ml Inj) 10 ml IV UD PRN PRN Reason: Diluant Assessment/ Plan: Nephrology No dyspnea No chest pain No acute events overnight Vitals, medications, blood work and imaging reviewed in the chart. General: In no apparent distress, Oriented x3, Cooperative HEENT: Atraumatic Neck: Supple Respiratory: Clear to auscultation bilaterally Cardiovascular: Regular rate/rhythm, Edema Gastrointestinal: Soft and benign, Non-distended Musculoskeletal: No clubbing, No contractures Integumentary: No rashes, No cyanosis Neurological: Normal speech Laboratory Data (last 24 hrs) 10/08/21 11:25: Sodium 133 L, Potassium 4.2, BUN 22 H, Creatinine 0.83, Glucose 109 H, Total Bilirubin 1.0, AST 191 H, ALT 304 H*, Alkaline Phosphatase 157 H 10/08/21 05:38: Sodium 135 L, Potassium 4.7, BUN 24 H, Creatinine 0.88, Glucose 108 H, Total Bilirubin 1.2 H, AST 246 H D, ALT 315 H* D, Alkaline Phosphatase 155 H, Triglycerides 112, Cholesterol 137, HDL Cholesterol 31 L, Cholesterol/HDL Ratio 4.42 10/08/21 05:38: WBC 9.20 D, Hgb 15.0 D, Hct 44.3 D, Plt Count 212 D Imagings Data: LEFT VENTRICULAR WALL MOTION: NORMAL DOPPLER/COLOR FLOW: NORMAL COMMENTS: NORMAL 2D ECHOCARDIOGRAM WITH DOPPLER. NO WALL MOTION ABNORMALITY. NO EFFUSION. EXAM DESCRIPTION: RAD - Chest Single View - 10/07/2021 12:16 pm CLINICAL HISTORY: CHEST PAIN COMPARISON: Chest Pa And Lat (2 Views) dated 09/14/2019; Chest Single View dated 02/07/2019; Chest Single View dated 04/12/2018; Chest Single View dated 08/27/2016 FINDINGS: Lines: None. Lungs: No evidence of edema or pneumonia. Pleural: No significant pleural effusions or pneumothorax. Cardiac: The heart size is within normal limits. Bones: No acute fractures. Other: IMPRESSION: No acute cardiopulmonary disease. EXAM DESCRIPTION: CTChest Abd Pelvis Wo Con - 10/08/2021 11:44 am CLINICAL HISTORY: abdominal pain , recent intrathecal injection , r/ COMPARISON: Chest For Pe Angio dated 08/27/2016; Abdomen Pelvis W Contrast dated 05/10/2020 TECHNIQUE: CT of the chest, abdomen, and pelvis was performed. All CT scans are performed using dose optimization technique as appropriate and may include automated exposure control or mA/KV adjustment according to patient size. FINDINGS: Thorax: Chest Wall: No abnormal mass Lungs: No acute abnormality. Pleura: No effusions or pneumothorax. Mikala/Mediastinum: No lymphadenopathy. Aorta/Pulmonary Arteries: Unremarkable Heart: Normal size. Abdomen/Pelvis: Liver: No acute abnormality or suspicious lesions. Biliary: No biliary ductal dilatation. Cholecystectomy. Stomach: No significant focal abnormality. Duodenum: No significant focal abnormality. Pancreas: No significant abnormality. Spleen: No significant abnormality. Adrenal: No suspicious lesions. Kidney/ureter: No hydronephrosis. No renal calculi. Retroperitoneum: No retroperitoneal adenopathy. Vascular: No aneurysm. Bowel: No significant focal abnormality. No appendix identified. Peritoneum: No ascites or free air. Bladder: Mild circumferential bladder wall thickening which may be secondary to a component of chronic bladder outlet obstruction. Reproductive: No adnexal masses. Bones: No acute fracture. Multilevel degenerative changes are present in the spine. Other: n/a IMPRESSION: No acute findings within the chest, abdomen, or pelvis. Nonspecific bladder wall thickening which could indicate cystitis or chronic bladder outlet obstruction. This was also present on the CT from 05/10/2020. Conclusions/Impression: DORA likely due to hypovolemia/ hypotension -No NSAIDs -Continue IVF Hyponatremia -Continue IVF with NS HTN complicated by hypotension -Restart Metoprolol LE Edema -Daily weight DM II -RISS
[2021-10-09] MEDS: ROSUVASTATIN 5 MG PO SCH (21:00)
[2021-10-09] MEDS ORDERED: METOPROLOL XL 25 MG TAB PO SCH (21:00)
[2021-10-09] MEDS: EZETIMIBE 10 MG TAB PO SCH (21:52)
[2021-10-10] MEDS: NA CHLORIDE 0.9% 1,000 ML IV SCH (02:37)
[2021-10-10] MEDS: MORPHINE 4 MG/ML SYR IV PRN ×2 (05:20→09:08)
[2021-10-10 06:18] LABS: ALT/SGPT 166 U/L (12-78); AST/SGOT 59 U/L (15-37); Albumin 2.9 g/dL (3.4-5.0); Alkaline Phosphatase 155 U/L (45-117); BUN Blood Urea Nitrogen 15 mg/dL (7-18); Bicarbonate 28 mmol/L (21-32); Bilirubin Total 0.5 mg/dL (0.2-1.0); Glucose Level 107 mg/dL (74-106); Potassium 3.8 mmol/L (3.5-5.1); Protein, Total 6.7 g/dL (6.4-8.2); Sodium Level 140 mmol/L (136-145)
[2021-10-10] MEDS: LEVOTHYROXINE SOD 0.088 MG TAB PO SCH (06:26)
[2021-10-10] MEDS: INSULIN -REGULAR HUMAN 50 UNIT/0.5 ML ML SQ SCH (07:30)
[2021-10-10 08:43] VITALS: BP 148/87; TEMP 97.5
[2021-10-10] MEDS: GABAPENTIN 100 MG CAP PO SCH (08:59)
[2021-10-10] MEDS: ENOXAPARIN 40 MG/0.4 ML SQ SCH (08:59)
[2021-10-10] MEDS: ASPIRIN EC 81 MG TAB PO SCH (08:59)
--- NOTE | 2021-10-10 10:25 | P.DS ---
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 He is admitted to the hospital after he been having some mild hypotensive events at home. Since this admission, he has been complaining of chest pain. His troponin and echocardiogram were normal. He was cleared by cardiology for discharge. He also had evidence of DORA and transaminasemia. His LFTs are trending down now that his blood pressure has normalized. CT abdomen and pelvis was negative. Vital Signs/Physical Exam: Temp Pulse Resp BP Pulse Ox 97.5 F 73 18 148/87 H 96 10/10/21 08:00 10/10/21 08:00 10/10/21 09:08 10/10/21 08:00 10/10/21 09:08 General: Alert, In no apparent distress, Cooperative HEENT: Atraumatic, Normocephalic Cardiovascular: No edema, Normal S1 S2 Neurological: Normal speech, Normal affect Laboratory Data at Discharge: WBC 9.20 K/uL (4.3-10.9) D 10/08/21 05:38 Hgb 15.0 g/dL (13.6-17.9) D 10/08/21 05:38 Hct 44.3 % (39.6-49.0) D 10/08/21 05:38 Plt Count 212 K/uL (152-406) D 10/08/21 05:38 PT 10.9 SECONDS (9.5-12.5) 10/07/21 11:39 INR 0.95 10/07/21 11:39 Sodium 140 mmol/L (136-145) 10/10/21 05:34 Potassium 3.8 mmol/L (3.5-5.1) 10/10/21 05:34 BUN 15 mg/dL (7-18) 10/10/21 05:34 Creatinine 0.77 mg/dL (0.55-1.3) 10/10/21 05:34 Glucose 107 mg/dL (74-106) H 10/10/21 05:34 Magnesium 2.1 mg/dL (1.8-2.4) 10/07/21 11:39 Total Bilirubin 0.5 mg/dL (0.2-1.0) 10/10/21 05:34 AST 59 U/L (15-37) H 10/10/21 05:34 ALT 166 U/L (12-78) H 10/10/21 05:34 Alkaline Phosphatase 155 U/L (45-117) H 10/10/21 05:34 Triglycerides 112 mg/dL (<150) 10/08/21 05:38 Cholesterol 137 mg/dL (<200) 10/08/21 05:38 HDL Cholesterol 31 mg/dL (40-60) L 10/08/21 05:38 Cholesterol/HDL Ratio 4.42 10/08/21 05:38 Lipase 192 U/L (73-393) 10/09/21 12:06 Home Medications: Butalb/Acetaminophen/Caffeine [Tzcucn-Vhvwivzx-Tfui 50-300-40] 1 cap PO DAILYPRN PRN 04/12/18 Empagliflozin/Metformin HCl [Synjardy Xr 12.5-1,000 mg Tab] 1 tab PO BID 04/12/18 Gabapentin [Neurontin*] 100 mg PO BEDTIME 04/12/18 Guanfacine HCl [Guanfacine HCl ER] 4 mg PO DAILY 04/12/18 Irbesartan [Avapro*] 300 mg PO DAILY 04/12/18 Levothyroxine [Synthroid*] 0.088 mg PO 0630 04/12/18 Metoprolol Succinate [Toprol Xl] 100 mg PO BEDTIME 04/12/18 Omeprazole [Prilosec] 40 mg PO BID 04/12/18 Rosuvastatin [Crestor*] 5 mg PO BEDTIME 04/12/18 Ascorbic Acid [Vitamin C] 500 mg PO DAILY 09/14/19 Chlorthalidone [Hygroton 25mg Tab*] 6.25 mg PO EVERY 3RD DAY 09/14/19 Codeine/APAP [Tylenol #3*] 1 tab PO Q4HP PRN #30 tab 09/14/19 Ezetimibe [Zetia*] 10 mg PO BEDTIME 09/14/19 Magnesium Oxide [Mag 0X*] 500 mg PO DAILY 09/14/19 Metoclopramide [Reglan*] 10 mg PO BID 09/14/19 bisoproloL fumarate [Zebeta*] 5 mg PO BEDTIME 09/14/19 ursodioL [Ursodiol] 250 mg PO BID 09/14/19 Gabapentin [Neurontin*] 100 mg PO TID cap 10/10/21 Followup: Paul Herrmann MD [Primary Care Provider] -
--- NOTE | 2021-10-10 10:41 | P.PN ---
Date of Service: 10/10/21 Vital Signs Temp Pulse Resp BP Pulse Ox 97.5 F 73 18 148/87 H 96 10/10/21 08:00 10/10/21 08:00 10/10/21 09:08 10/10/21 08:00 10/10/21 09:08 Medications Albuterol Sulfate (Albuterol 2.5 Mg/3 Ml Neb Alaina) 2.5 mg NEB [id number] PRN PRN Reason: SHORTNESS OF BREATH Aspirin (Aspirin Ec 81 Mg Tab) 81 mg PO DAILY [facility] Last Admin: 10/10/21 08:59 Dose: 81 mg Documented by: Ezetimibe (Ezetimibe 10 Mg Tab) 10 mg PO BEDTIME [facility] Last Admin: 10/09/21 21:52 Dose: 10 mg Documented by: Enoxaparin Sodium (Enoxaparin 40 Mg/0.4 Ml) 40 mg SQ DAILY [facility] Last Admin: 10/10/21 08:59 Dose: 40 mg Documented by: Gabapentin (Gabapentin 100 Mg Cap) 100 mg PO TID [facility] Last Admin: 10/10/21 08:59 Dose: 100 mg Documented by: Home Med (Home Med [Rosuvastatin 5 Mg Tab]) 1 ea PO BEDTIME [facility] Last Admin: 10/09/21 21:00 Dose: Not Given Documented by: Hydralazine HCl (Hydralazine Hcl 20 Mg/Ml Vial) 10 mg IV Q6HP PRN PRN Reason: FOR SBP>160 OR DBP>100 MMHG Insulin Human Regular (Insulin -Regular Human 50 Unit/0.5 Ml Ml) 0 unit SQ ACHS [facility]; Protocol Last Admin: 10/10/21 07:30 Dose: Not Given Documented by: Levothyroxine Sodium (Levothyroxine Sod 0.088 Mg Tab) 0.088 mg PO 0630 [facility] Last Admin: 10/10/21 06:26 Dose: 0.088 mg Documented by: Metoprolol Succinate (Metoprolol Xl 25 Mg Tab) 25 mg PO BEDTIME [facility] Last Admin: 10/09/21 21:52 Dose: 25 mg Documented by: Morphine Sulfate (Morphine 4 Mg/Ml Syr) 2 mg IV Q4H PRN PRN Reason: Pain scale 5-7 (Moderate) Last Admin: 10/10/21 09:08 Dose: 2 mg Documented by: Ondansetron HCl (Ondansetron 4 Mg/2 Ml Vial) 4 mg IV Q8H PRN PRN Reason: NAUSEA / VOMITING Last Admin: 10/09/21 17:34 Dose: 4 mg Documented by: Pantoprazole Sodium (Pantoprazole 40 Mg Inj) 40 mg IVP DAILY [facility]; Protocol Last Admin: 10/09/21 09:49 Dose: 40 mg Documented by: Sodium Chloride (Flush Normal Saline 10 Ml) 10 ml IV BID JAN Last Admin: 10/09/21 21:51 Dose: 10 ml Documented by: Sodium Chloride (Sodium Chloride 0.9% 10ml Inj) 10 ml IV UD PRN PRN Reason: Diluant Assessment/ Plan: Nephrology No dyspnea No chest pain Feeling better today No acute events overnight Vitals, medications, blood work and imaging reviewed in the chart. General: In no apparent distress, Oriented x3, Cooperative HEENT: Atraumatic Neck: Supple Respiratory: Clear to auscultation bilaterally Cardiovascular: Regular rate/rhythm, Edema Gastrointestinal: Soft and benign, Non-distended Musculoskeletal: No clubbing, No contractures Integumentary: No rashes, No cyanosis Neurological: Normal speech Laboratory Data (last 24 hrs) 10/08/21 11:25: Sodium 133 L, Potassium 4.2, BUN 22 H, Creatinine 0.83, Glucose 109 H, Total Bilirubin 1.0, AST 191 H, ALT 304 H*, Alkaline Phosphatase 157 H 10/08/21 05:38: Sodium 135 L, Potassium 4.7, BUN 24 H, Creatinine 0.88, Glucose 108 H, Total Bilirubin 1.2 H, AST 246 H D, ALT 315 H* D, Alkaline Phosphatase 155 H, Triglycerides 112, Cholesterol 137, HDL Cholesterol 31 L, Cholesterol/HDL Ratio 4.42 10/08/21 05:38: WBC 9.20 D, Hgb 15.0 D, Hct 44.3 D, Plt Count 212 D Imagings Data: LEFT VENTRICULAR WALL MOTION: NORMAL DOPPLER/COLOR FLOW: NORMAL COMMENTS: NORMAL 2D ECHOCARDIOGRAM WITH DOPPLER. NO WALL MOTION ABNORMALITY. NO EFFUSION. EXAM DESCRIPTION: RAD - Chest Single View - 10/07/2021 12:16 pm CLINICAL HISTORY: CHEST PAIN COMPARISON: Chest Pa And Lat (2 Views) dated 09/14/2019; Chest Single View dated 02/07/2019; Chest Single View dated 04/12/2018; Chest Single View dated 08/27/2016 FINDINGS: Lines: None. Lungs: No evidence of edema or pneumonia. Pleural: No significant pleural effusions or pneumothorax. Cardiac: The heart size is within normal limits. Bones: No acute fractures. Other: IMPRESSION: No acute cardiopulmonary disease. EXAM DESCRIPTION: CTChest Abd Pelvis Wo Con - 10/08/2021 11:44 am CLINICAL HISTORY: abdominal pain , recent intrathecal injection , r/ COMPARISON: Chest For Pe Angio dated 08/27/2016; Abdomen Pelvis W Contrast dated 05/10/2020 TECHNIQUE: CT of the chest, abdomen, and pelvis was performed. All CT scans are performed using dose optimization technique as appropriate and may include automated exposure control or mA/KV adjustment according to patient size. FINDINGS: Thorax: Chest Wall: No abnormal mass Lungs: No acute abnormality. Pleura: No effusions or pneumothorax. Mikala/Mediastinum: No lymphadenopathy. Aorta/Pulmonary Arteries: Unremarkable Heart: Normal size. Abdomen/Pelvis: Liver: No acute abnormality or suspicious lesions. Biliary: No biliary ductal dilatation. Cholecystectomy. Stomach: No significant focal abnormality. Duodenum: No significant focal abnormality. Pancreas: No significant abnormality. Spleen: No significant abnormality. Adrenal: No suspicious lesions. Kidney/ureter: No hydronephrosis. No renal calculi. Retroperitoneum: No retroperitoneal adenopathy. Vascular: No aneurysm. Bowel: No significant focal abnormality. No appendix identified. Peritoneum: No ascites or free air. Bladder: Mild circumferential bladder wall thickening which may be secondary to a component of chronic bladder outlet obstruction. Reproductive: No adnexal masses. Bones: No acute fracture. Multilevel degenerative changes are present in the spine. Other: n/a IMPRESSION: No acute findings within the chest, abdomen, or pelvis. Nonspecific bladder wall thickening which could indicate cystitis or chronic bladder outlet obstruction. This was also present on the CT from 05/10/2020. Conclusions/Impression: DORA likely due to hypovolemia/ hypotension -No NSAIDs -Discontinue IVF -Encourage nutrition Hyponatremia -Discontinue IVF -Encourage nutrition HTN complicated by hypotension -Continue Metoprolol LE Edema -Daily weight -Discontinue IVF DM II -RISS -No sugar diet
[2021-10-10 10:59] VITALS: O2SAT 98
--- NOTE | 2021-10-12 14:02 | CON ---
Date of Consultation: 10/08/2021 Reason For Consultation: Chest pain and hypertension. History Of Present Illness: Mr. Jc is a 41-year-old. He is an employee here at the [employer], has a history of diabetes, hypertension, hypothyroidism, and pancreatitis. He sees Dr. Bryan childs and Dr. Strickland on a regular basis. He came in with acute renal failure. Creatinine 1.81, atypic al chest pain, elevated liver function tests. A glucose of 188. EKG is nonspecific. Troponin was n egative. BNP was negative. He has an elevated white count. Had some nausea along with his chest pa in, but his chest pain was not exertional. It was left-sided, fleeting, not pressure-like. Denied a ny vomiting or diaphoresis, PND, orthopnea, pedal edema, palpitation, or syncope. Past Medical History: As stated above. Allergies: NONE. Review of Systems: Negative. Social History: Negative. Family History: Noncontributory. Medications: At home include insulin inhalers, aspirin, Zetia, hydralazine, insulin, Synthroid, Prot gildardo. He is also on Avapro, Crestor, and Toprol. Physical Examination: Vital signs: Stable. He was afebrile. HEENT: Negative. Neck: Supple. No bruit, lymphadenopathy, JVD, or thyromegaly. Chest: Clear to auscultation and percussion. Cardiac Exam: Revealed a regular rhythm and rate. No murmurs, gallops, or rubs. Abdomen: Benign. Extremities: Revealed no clubbing, cyanosis, or edema. Diagnostic Data: As stated earlier. Impression And Plan: Mr. Jc' pain does not sound cardiac in nature. He has a fairly unremarka ble EKG and x-ray. I am concerned about his liver function tests and elevated creatinine. Neverthel ess, I think he has high risk for coronary artery disease. I think he should have an outpatient stre ss test in the very near future. From my standpoint, once he is done with his workup as far as his l iver function enzymes are concerned, he can go home and he will make an arrangement with Dr. Strickland for an appointment and then in the near future for a stress test. Continue present regimen otherwise . NB/MODL Voice ID: [id number] Report ID: [id number]
== END 2021-10-10 11:15 | disposition home or self-care (01) | DRG 683 ==
LOC: ER 11:08 → ERHOLD 14:44 → 2ND 19:55 → OBSVTOIN 10-08 19:19
PROVIDERS: ADMIT Internal Medicine; ATTEND Internal Medicine
DX: N17.9 Acute kidney failure, unspecified (principal); E87.1 Hypo-osmolality and hyponatremia; I95.9 Hypotension, unspecified; I10 Essential (primary) hypertension; E11.9 Type 2 diabetes mellitus without complications; R60.9 Edema, unspecified; R07.89 Other chest pain; R79.89 Other specified abnormal findings of blood chemistry; E66.9 Obesity, unspecified; Z68.36 Body mass index [BMI] 36.0-36.9, adult; E03.9 Hypothyroidism, unspecified; K21.9 Gastro-esophageal reflux disease without esophagitis; I45.10 Unspecified right bundle-branch block; F17.210 Nicotine dependence, cigarettes, uncomplicated; Z20.822 Contact with and (suspected) exposure to COVID-19
CPT/HCPCS: 36415; 70551; 71045; 71250; 72142; 74176; 80048; 80053; 80061; 80076; 82550; 82553; 82947; 83036; 83605; 83690; 83735; 83880; 84443; 84484; 85025; 85610; 93005; 93306; 96361; 96374; 96375; 99285; C9113; G0378; J1650; J2270; J2405; J3010; J7030; J7040; U0003

== ENCOUNTER 2021-12-04 07:26 | Day surgery (SDC) | payer BC ==
[2021-12-04] MEDS ORDERED: NA CHLORIDE 0.9% 1,000 ML ONE (07:40)
[2021-12-04] MEDS ORDERED: propofoL 200 MG/20 ML VIAL IV ONE ×2 (08:59)
--- NOTE | 2021-12-04 09:30 | ENDO RPT ---
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 TOPICAL ANESTHETIC: none CONSENT: The patient understands the risks and benefits of the procedure and understands that these risks include, but are not limited to: sedation, allergic reaction, infection, perforation and/or bleeding. Alternative means of evaluation and treatment include, among others: physical exam, x-rays, and/or surgical intervention. The patient elects to proceed with this endoscopic procedure. DESCRIPTION OF PROCEDURE: During intra-op preparation period all mechanical medical equipment was checked for proper function. Hand hygiene and appropriate measures for infection prevention was taken. Procedure, possible complications, and alternatives including but not limited to the possibility of bleeding, perforation, tear, infection, sepsis, need for surgery, need for blood transfusion, and anesthesia related complications were explained to the patient. After the risks, benefits and alternatives of the procedure were thoroughly explained, Informed consent was verified, confirmed and timeout was successfully executed by the treatment team. The patient was placed in the left lateral position. The patient was anesthetized with topical anesthesia. Through the anesthetized oropharyngeal area, the scope was passed without any difficulty. The [id number] ([id number]) endoscope was introduced through the mouth and advanced to the second portion of the duodenum. Retroflexed views revealed no abnormalities. The gastroscope was then slowly withdrawn and removed. Small amount of retained solid food was scattered in the total stomach. Mild gastritis was found in the antrum. Multiple biopsies were obtained and sent to pathology. Small amount of retained solid food was present in the bulb and descending duodenum. ADVERSE EVENTS: There were no complications. IMPRESSIONS: 1. Small amount of retained solid food scattered in the total stomach 2. Mild gastritis in the antrum, s/p biopsies 3. Small amount of retained solid food in the bulb and descending duodenum RECOMMENDATIONS: 1. await biopsy results 2. acid suppression therapy 3. gastric emptying study REPEAT EXAM: Aleksandr Banks Dr eSigned: Aleksandr Banks Dr 12/04/2021 9:30 AM cc: Paul Herrmann CPT CODES: ICD9 CODES: PATIENT NAME: Drew Jc MR#: [id number]
[2021-12-04 11:50] VITALS: TEMP 97.6
[2021-12-04 11:51] VITALS: BP 127/57; O2SAT 95
== END 2021-12-04 10:19 | disposition home or self-care (01) ==
LOC: OR 07:26
PROVIDERS: ATTEND Internal Medicine Gastroenterology
PROC: 0DB68ZX Excision of Stomach, Via Natural or Artificial Opening Endoscopic, Diagnostic (ICD-10-PCS; principal; 2021-12-04 09:00)
DX: K29.50 Unspecified chronic gastritis without bleeding (principal); K21.9 Gastro-esophageal reflux disease without esophagitis; R07.89 Other chest pain; R14.0 Abdominal distension (gaseous); E11.9 Type 2 diabetes mellitus without complications; I10 Essential (primary) hypertension; Z20.822 Contact with and (suspected) exposure to COVID-19
CPT/HCPCS: 88312; 82947; 88305; 43239; U0003; J2704; J7030

== ENCOUNTER 2022-08-06 14:16 | Inpatient (IN) | payer BC ==
--- OUTSIDE RECORDS SUMMARY | 2022-08-06 14:20 | XMS REPORT | Continuity of Care Document ---
:1980 Author Organization [facility] t Address [address] [place] [address] Care Team Providers Name Role Phone Paul Herrmann Primary Care Physician Delmis Dillard MA Attending Clinician Unavailable Jose Raul STEARNS, Maria Elena Jones Attending Clinician [phone] Darron Restrepo MD Attending Clinician Partha Sommers MA Attending Clinician Unavailable Dave Cruz MD Attending Clinician DAVE CRUZ Attending Clinician Unavailable Doctor Unassigned, [place] Attending Clinician Unavailable Joellen Phipps Attending Clinician Pob[facility], [facility] Attending Clinician Unavailable Lorena Jarquin Attending Clinician LORENA CHAPMAN Attending Clinician Unavailable DR SHANIKA WAGNER Attending Clinician Unavailable DR SHANIKA WAGNER Admitting Clinician Unavailable Payers Payer Name Policy Type Policy Number Effective Date Expiration Date Slime SANCHES [id number] 2021 CLAIM SVC 00:00:00 Problems Condition Condition Condition Status Onset Resolution Last Treating Co mments Source Name Details Category Date Date Treatment Clinician Date Type 2 Type 2 Disease Active [place] diabetes diabetes 5-25 Health mellitus mellitus 00:00: 00 HTN HTN Disease Active [place] (hypertens (hypertens 9-04 He alth ion) ion) 00:00: 00 No known No known Disease Unive rs active active ity of problems problems [facility] Allergies, Adverse Reactions, Alerts Allergy Allergy Status Severity Reaction(s) Onset Inactive Treating Comm ents Source Name Type Date Date Clinician NO KNOWN Allergy [facility] NO KNOWN Drug Active [facility] Social History Social Habit Start Date Stop Date Quantity Comments Source History of Current smoker [facility] tobacco use Tobacco use and 2021-11-20 2021-11-20 Smokeless tobacco [place] Health exposure 00:00:00 00:00:00 non-user Sex Assigned At [birth year] [facility] kes 00:00:00 00:00:00 [facility] Smoking Status Start Date Stop Date Source Ex-smoker 2021-11-20 00:00:00 2021-11-20 00:00:00 [place] [facility] Unknown if ever smoked [facility] Medications Ordered Filled Start Stop Current Ordering Indication Dosage Frequency Signature Comments Components Source Medication Medication Date Date Medication? Clinician (SIG) Name Name Synjardy XR Yes 2{tbl} QD Take 2 UT 12.5-1000 5-01 tablets by Heal th MG 24 hr 00:00: mouth 1 tablet 00 (one) time each day with breakfast. irbesartan Yes 300mg QD Take 300 UT (Avapro) 4-20 mg by Health 300 MG 00:00: mouth 1 tablet 00 (one) time each day. Multiple 0 Yes UT Vitamin 4-13 Health (Multi 14:10: Vitamin) 52 tablet lisinopril Yes 40mg Take 40 mg U T 40 MG 4-13 by mouth. Health tablet 14:10: 52 omeprazole 0 Yes 40mg Take 40 mg U T (PriLOSEC) 3-14 by mouth [address]a l[address] 00:00: (one) time capsule 00 each day before breakfast. 30 MINUTES BEFORE BREAKFAST hydrOXYzine Yes TAKE 1 TO U T HCl 3-14 2 TABLETS Health (Atarax) 25 00:00: BY MOUTH MG tablet 00 EVERY NIGHT AT BEDTIME NEEDED Ozempic, 2021-0 Yes .5mg Inject 0.5 UT 0.25 or 0.5 3-09 mg under Heal th MG/DOSE, 2 00:00: the skin 1 MG/1.5ML 00 (one) time solution per week. pen-injecto r rosuvastati 2021-0 Yes 5mg QD Take 5 mg U T n (Crestor) 3-08 by mouth 1 He alth 5 MG tablet 00:00: (one) time 00 each day. Decara 625 2021-0 Yes 625ug Take 625 UT MCG (45319 3-08 mcg by [facility]) capsule 00:00: mouth 1 00 (one) time per week. fenofibrate 2021-0 Yes 134mg Take 134 U T micronized 3-07 mg by Health (LOFIBRA) 00:00: mouth with 134 MG 00 snacks. capsule ezetimibe 2021-0 Yes 10mg QD Take 10 mg UT (Zetia) 10 3-07 by mouth 1 Hea lth MG tablet 00:00: (one) time 00 each day. cyclobenzap 2021-0 Yes 10mg Q.[id number] Take 10 mg UT rine 1-26 [id number] by mouth 3 Hea lth (Flexeril) 00:00: 3D (three) 10 MG 00 times a tablet day if needed. Levoxyl 100 2021-0 Yes 100ug Take 100 U T MCG tablet 1-19 mcg by Health 00:00: mouth 1 00 (one) time each day in the morning. on an empty stomach metoprolol 2020-08 Yes TAKE 1/2 UT succinate 1-24 TO 1 Health XL 00:00: TABLET BY (Toprol-XL) 00 MOUTH 25 MG 24 hr EVERY DAY tablet AT BEDTIME benzonatate 2019-0 2020- No [id number] 100mg Take 1 Univers (TESSALON 01-12-06 capsule by Yesika) 100 00:00: 04:59 mouth 3 [place] capsule 00 :00 (three) Medica l times Branch daily as needed for Cough for up to 30 days. benzonatate 2019- 2020- No [id number] 100mg Take 1 Univers (TESSALON 6-12 14-06 capsule by Yesika) 100 00:00: 04:59 mouth 3 [place] capsule 00 :00 (three) Medica l times Branch daily as needed for Cough for up to 30 days. benzonatate 0 2020- No [id number] 100mg Take 1 Univers (TESSALON 6-05 07-06 capsule by itMarly) 100 00:00: 04:59 mouth 3 [place] mg capsule 00 :00 (three) Medica l times Branch daily as needed for Cough for up to 30 days. methylPREDN 2017-08 Yes Take by Uni vers ISolone 0-13 mouth ity of (MEDROL, 00:00: [...] (scale 7-10). methylPREDN 2017-08 Yes Take by Uni vers ISolone 0-13 mouth ity of (MEDROL, 00:00: [...] (scale 7-10). methylPREDN 2017-08 Yes Take by Uni vers ISolone 0-13 mouth ity of (MEDROL, 00:00: [...] (scale 7-10). methylPREDN 2017-08 Yes Take by Uni vers ISolone 0-13 mouth ity of (MEDROL, 00:00: SEE-INSTRU Tj as ANITA,) 4 mg 00 CTIONS. Medica l tablets follow Branch package directions naproxen 2017-08 Yes 550mg Take 1 Univer s sodium 0-13 tablet by ity of (ANAPROX 00:00: mouth 2 [place] DS) 550 mg 00 (two) Medical tablet times Branch daily with meals. acetaminoph 2017-08 Yes 1{tbl} Take 1 Un [place] en-codeine 0-13 tablet by ity of 300-30 mg 00:00: mouth [place] tablet 00 every 4 Medical (four) Branch hours as needed for Pain (scale 7-10). Immunizations Ordered Immunization Filled Immunization Date Status Commen ts Source Name Name COVID-19 Jonel & 2021-06-14 Completed [facility] Vaccination (RED 00:00:00 CAP) COVID-19 Marilyna & 2020-09-07 Completed [facility] Over Vaccination (RED 00:00:00 CAP) COVID-19 Marilyna & 2020-08-06 Completed [facility] Over Vaccination (RED 00:00:00 CAP) Vital Signs Vital Name Observation Time Observation Value Comments Source HEIGHT 2021-10-12 18:35:00 172.7 cm WEIGHT 2021-10-12 18:35:00 109.77 kg HEIGHT 2021-10-12 18:35:00 172.7 cm WEIGHT 2021-10-12 18:35:00 109.77 kg HEIGHT 2021-10-12 18:35:00 172.7 cm WEIGHT 2021-10-12 18:35:00 109.77 kg Systolic blood 2020-01-13 16:15:00 136 mm[Hg] Univer sity of pressure [facility] Diastolic blood 2020-01-13 16:15:00 89 mm[Hg] Unive rsity of [facility] Heart rate 2020-01-13 16:15:00 99 /min Universi [facility] Body temperature 2020-01-13 16:15:00 37.33 Francia [facility] rate 2020-01-13 16:15:00 20 /min [facility] Body height 2020-01-13 16:15:00 175.3 cm Universi [facility] Body weight 2020-01-13 16:15:00 119.296 kg Universi [facility] BMI 2020-01-13 16:15:00 38.84 [facility]m2 [facility] Oxygen saturation in 2020-01-13 16:15:00 98 /min [facility] Arterial blood by [facility] Pulse oximetry Branch Diastolic blood 2021-10-13 03:15:00 83 mm[Hg] [facility] Heart rate 2021-10-13 03:15:00 79 /min [facility] Body temperature 2021-10-13 03:15:00 36.72 Francia [facility] Respiratory rate 2021-10-13 03:15:00 20 /min [facility] Oxygen saturation in 2021-10-13 03:15:00 98 /min [facility] Arterial blood by Medical nter Pulse oximetry Systolic blood 2021-10-13 03:15:00 127 mm[Hg] [facility] Body height 2021-10-12 18:35:00 172.7 cm [facility] Body weight 2021-10-12 18:35:00 109.77 kg [facility] BMI 2021-10-12 18:35:00 36.80 kg/m2 [facility] Procedures Procedure Date / Time Performing Clinician Source Performed CT CHEST FOR PULMONARY 2021-10-12 22:54:00 Dave Cruz [facility] EMBOLUS Center CBC W/PLT COUNT & AUTO 2021-10-12 21:04:00 Dave Cruz [facility] DIFFERENTIAL [place] CBC W/PLT COUNT & AUTO 2021-10-12 21:04:00 Dave Cruz [facility] DIFFERENTIAL Center XR CHEST 2 VIEWS 2021-10-12 19:23:00 Dave Cruz [facility] B-TYPE NATRIURETIC 2021-10-12 19:16:00 Dave Cruz [facility] FACTOR (BNP) Center BASIC METABOLIC PANEL 2021-10-12 19:16:00 Dave Cruz [facility] PROTHROMBIN TIME/INR 2021-10-12 19:16:00 Dave Cruz [facility] HEPATIC FUNCTION PANEL 2021-10-12 19:16:00 Dave Cruz [facility] HIGH SENSITIVITY 2021-10-12 19:16:00 Dave Cruz [facility] TROPONIN I [place] TSH/FREE T4 IF 2021-10-12 19:16:00 Dave Cruz [facility] INDICATED Center D-DIMER 2021-10-12 19:16:00 Dave Cruz [facility] ECG 12-LEAD 2021-10-12 18:35:39 Unknown, Hl7 Doctor [facility] EKG-SCANNED 2021-10-12 00:00:00 Provider, Winnie [facility] Medical Scanning [place] DISABILITY/FMLA 2020-02-14 05:01:00 Doctor Unassigned, No [facility] Branch Plan of Care Planned Activity Planned Date Details Comments Source Future Scheduled 2022-04-[address] [facility] Test 00:00:00 (#1) [code = [facility] INFLUENZA VACCINE (#1)] Future Scheduled 2022-04-[address] [facility] Test 00:00:00 (#1) [code = [facility] INFLUENZA VACCINE (#1)] Future Scheduled 2021-08-[address] [facility] Test 00:00:00 (12+) [code = [facility] Center DEPRESSION SCREENING (12+)] Future Scheduled 2021-08-[address] [facility] Test 00:00:00 (12+) [code = [facility] Center DEPRESSION SCREENING (12+)] Future Scheduled [address] [facility] Test 00:00:00 (procedure) [code = [facility] [id number]] Future Scheduled [address] [facility] Test 00:00:00 (procedure) [code = Medical Center [id number]] Future Scheduled 1997 DTAP/TDAP/TD VACCINES [facility] Test 00:00:00 (1 - Tdap) [code = Medical C enter DTAP/TDAP/TD VACCINES (1 - Tdap)] Future Scheduled 1997 DTAP/TDAP/TD VACCINES [facility] Test 00:00:00 (1 - Tdap) [code = Medical C enter DTAP/TDAP/TD VACCINES (1 - Tdap)] Future Scheduled 1996 HEPATITIS C [facility]CRE[facility]ING [facility] Test 00:00:00 [code = HEPATITIS C Medical Center SCREENING] Future Scheduled 1996 HEPATITIS C [facility]CRE[facility]ING [facility] 00:00:00 [code = HEPATITIS C Medical Center SCREENING] Future Scheduled [address] [facility] Test 00:00:00 [facility] Medical Cent[facility] r Screening (12+) [code = Tobacco Cessation Counseling and Screening (12+)] Encounters Start End Encounter Admission Attending Care Care Encounter Source Date/Time Date/Time Type Type Clinicians Facility Department ID 2022-06-20 Outpatient [facility] [id number] [place] 12:19:42 [id number] Health 2022-02-11 2022-02-11 Telephone Gilma Delmis [facility] 6400 1.2.840 .114 [id number] [place] 00:00:00 00:00:[address] [id number] Health [id number] 0 2022-02-06 2022-02-06 Telephone Maria Elena Blunt [facility] 6400 1.2.840.114 [id number] [place] 00:00:00 00:00:[address] [id number] Health 9.2.7.2.686 [id number] 7 2022-01-13 2022-01-13 Telephone CHRYSTAL Restrepo [facility] [id number] [place] 00:00:00 00:00:00 Darron NASH [id number] álvaro MEDICAL 9.2.7.2.686 [place] 2 [id number] 5 2022-01-01 2022-01-01 Office Maria Elena Blunt [facility] 6400 1.2.840.114 1 [id number] [place] 08:30:00 08:45:[address] [id number] Health 9.2.7.2.686 [id number] 7 2021-12-26 2021-12-26 Telephone Maria Elena Blunt [facility] 6400 1.2.840.114 [id number] [place] 00:00:00 00:00:[address] [id number] Health 9.2.7.2.686 [id number] 7 2021-12-24 2021-12-24 Telephone Maria Elena Blunt UTP 6400 1.2.840.114 [id number] [place] 00:00:00 00:00:[address] [id number] Health 9.2.7.2.686 [id number] 7 2021-12-03 2021-12-03 Telephone Delmis Dillard [facility] 6400 1.2.840 .114 [id number] [place] 00:00:00 00:00:[address] [id number] Health 9.2.7.2.686 [id number] 2021-11-20 2021-11-20 Consult Maria Elena Blunt UTP 6400 1.2.840.114 1 [id number] [place] 11:30:00 12:00:[address] [id number] Health 9.2.7.2.686 [id number] 7 2021-11-20 2021-11-20 Telephone Maria Elena Blunt [facility] 6400 1.2.840.114 [id number] [place] 00:00:00 00:00:[address] [id number] Health 9.2.7.2.686 [id number] 7 2021-11-15 2021-11-15 Telephone Partha Sommers UTP 6400 1.2.840.11 4 [id number] [place] 00:00:00 00:00:[address] [id number] [facility] 9.2.7.2.686 [id number] 7 2021-10-12 2021-10-13 Emergency Anthony, [facility] [id number] [facility] 18:38:00 03:18:00 [facility] 2021-10-12 2021-10-13 Emergency ER [facility] Emergency [id number] SLE 18:38:00 03:18:00 DAVE 2021-10-12 2021-10-13 Emergency ER Anthony, [facility] [id number] [facility] 18:38:00 03:18:00 [facility] 2021-10-12 2021-10-12 Outpatient [place]CM [place] [id number] [address] [place] [address] 00:00:00 23:59:00 [place] [facility] 2020-02-14 2020-02-14 Orders Doctor MARIA ELENA 1.2.840.114 [id number] 00:00:00 00:00:00 Only Unassigned, GERA 350.1.13.10 [place] [facility] 4.2.7.2.686 [id number] 2020-02-14 2020-02-14 Orders Doctor ARREDONDO 1.2.840.114 [id number] [facility] 00:00:00 00:00:00 Only Unassigned, GERA 350.1.13.10 ity of [place] [facility] 4.2.7.2.686 [facility] [id number] [address] 2020-01-14 2020-01-14 Telephone [facility] 1.2.840.114 [id number] 00:00:00 00:00:00 [employer] [id number] [place] 4.2.7.2.686 [facility] [id number] Primary & 370 Specialty Care 2020-01-14 2020-01-14 Telephone [facility] 1.2.840.114 [id number] [facility] 00:00:00 00:00:00 [employer] HEALTH 350.1.13.10 it y of [place] 4.2.7.2.686 [facility] [id number] [facility] Primary & 370 Branch Specialty Care 2020-01-13 2020-01-13 Urgent Pob1, Acute Care Clinic [facility] 1. 2.840.114 [id number] Univers 10:59:51 12:29:22 Care Lorena Chapman Dionte [facility].13.[facility] 4.2.7.2.686 [facility] [id number] Ca dical nal 044 Branch Office [address] One 2020-01-13 2020-01-13 Outpatient R ADELA [facility] [id number] [facility] 11:00:00 11:00:00 LORENA morin [facility] 2018-09-29 2018-09-29 Outpatient Helen WAGNER [facility] 10 [id number] [facility] 05:51:00 10:08:00 SHANIKA [facility] Results Test Description Test Time Test Comments Results Result [facility] e Comments CT, CHEST WITH IV 2021-10-12 41yom with CONTRAST- PE TEST 23:17:00 chest pain and DESIGN tachycardia, [place] [address].8Unlisted [facility] Reason for Exam JCVARINDER MA Aviva : - Click Yes and 1980 Sex: Enter Reason M Below->No *FINAL REPORT EXAM/TECHNIQUE: CT angiography of the chest pulmonary embolus protocol. MIPS sequences were acquired. Dose modulation, iterative reconstruction, and/or weight based adjustment of the mA/kV was utilized to reduce the radiation dose to as low as reasonably achievable. INDICATION: Pulmonary embolism. COMPARISON: None. FINDINGS: Lower Neck: Unremarkable. Parenchyma/Pleura: No focal consolidation. No suspicious pulmonary nodule. No pleural effusion, air, thickening, or calcification. Airways: Unremarkable. Cardiac: Borderline cardiomegaly. Mediastinum/lymph nodes: No lymphadenopathy. Vessels: Unremarkable. Osseous: No acute osseous process. No suspicious osseous lesion. Upper abdomen: Unremarkable. Impression: No acute pulmonary embolism. Signed: Allen Hauser MDReport Verified Date/Time: 10/12/2021 23:17:25 with platelet count + automated diff 2021-10-12 21:16:46 Test Item Value Reference Range Interpretation Comme nts WBC (test code = 6690-2) 16.3 See_Comment H [A utomated message] The system which generated this result transmitted ref erence range: 3.5 - 10.5 K/L. T he reference range was not u sed to interpret this result as normal/abnormal. RBC (test code = 789-8) 5.41 See_Comment [Au tomated message] The system which generated this result transmitted ref erence range: 4.63 - 6.08 M/ L. The reference range was not u sed to interpret this result as normal/abnormal. MCHC (test code = 786-4) 34.7 See_Comment [A utomated message] The system which generated this result transmitted ref erence range: 32.3 - 36.5 GM/ DL. The reference range was not u sed to interpret this result as normal/abnormal. Hematocrit (test code = 49.0 % 40.1-51.0 4544-3) MCV (test code = 787-2) 90.6 fL 79.0-92.2 MCH (test code = 785-6) 31.4 pg 25.7-32.2 RDW (test code = 788-0) 12.6 % 11.6-14.4 Platelets (test code = 777-3) 294 See_Comment [Automated message] The system which generated this result transmitted ref erence range: 150 - 450 K/CU MM. The reference range was not u sed to interpret this result as normal/abnormal. MPV (test code = 00527-3) 10.0 fL 9.4-12.4 nRBC (test code = 413) 0 See_Comment [Aut omated message] The system which generated this result transmitted ref erence range: 0 - 0 /100 WBC. The reference range was not used to interpret this result as sonam l/abnormal. % Neutros (test code = 429) 68 % % Lymphs (test code = 430) 23 % % Monos (test code = 431) 8 % % Eos (test code = 432) 0 % % Baso (test code = 437) 1 % # Neutros (test code = 670) 11.12 See_Comment H [Automated message] The system which generated this result transmitted ref erence range: 1.78 - 5.38 K/ L. The reference range was not u sed to interpret this result as normal/abnormal. # Lymphs (test code = 414) 3.68 See_Comment H [Automated message] The system which generated this result transmitted ref erence range: 1.32 - 3.57 K/ L. The reference range was not u sed to interpret this result as normal/abnormal. # Monos (test code = 415) 1.27 See_Comment H [ Automated message] The system which generated this result transmitted ref erence range: 0.30 - 0.82 K/ L. The reference range was not u sed to interpret this result as normal/abnormal. # Eos (test code = 416) 0.05 See_Comment [Au tomated message] The system which generated this result transmitted ref erence range: 0.04 - 0.54 K/ L. The reference range was not u sed to interpret this result as normal/abnormal. # Baso (test code = 417) 0.08 See_Comment [A utomated message] The system which generated this result transmitted ref erence range: 0.01 - 0.08 K/ L. The reference range was not u sed to interpret this result as normal/abnormal. Immature Granulocytes-Relative 1 % 0-1 (test code = 2801) Lab Interpretation (test code Abnormal = 36123-5) [facility] with platelet count + automated [id number] 21:16:46 Test Item Value Reference Range Interpretation Comments WBC (test code = 6690-2) 16.3 See_Comment H [A utomated message] The system [employer] generated this result transmitted ref erence range: 3.5 - 10 .5 K/L. The refe rence range was not u sed to interpret this result as normal/abnor mal. RBC (test code = 789-8) 5.41 See_Comment [Au tomated message] The system [employer] generated this result transmitted ref erence range: 4.63 - 6 .08 M/L. The refe rence range was not u sed to interpret this result as normal/abnor mal. MCHC (test code = 786-4) 34.7 See_Comment [A utomated message] The system [employer] generated this result transmitted ref erence range: 32.3 - 3 6.5 GM/DL. The refe rence range was not u sed to interpret this result as normal/abnor mal. Hematocrit (test code = 49.0 % 40.1-51.0 4544-3) MCV (test code = 787-2) 90.6 fL 79.0-92.2 MCH (test code = 785-6) 31.4 pg 25.7-32.2 RDW (test code = 788-0) 12.6 % 11.6-14.4 Platelets (test code = 294 See_Comment [Aut omated message] 777-3) The system [employer] generated this result transmitted ref erence range: 150 - 45 0 K/CU MM. The referen ce range was not u sed to interpret this result as normal/abnor mal. MPV (test code = 10.0 fL 9.4-12.4 79985-6) nRBC (test code = 413) 0 See_Comment [Aut omated message] The system [employer] generated this result transmitted ref erence range: 0 - 0 /1 00 WBC. The refere nce range was not u sed to interpret this result as normal/abnor mal. % Neutros (test code = 68 % 429) % Lymphs (test code = 23 % 430) % Monos (test code = 8 % 431) % Eos (test code = 432) 0 % % Baso (test code = 437) 1 % # Neutros (test code = 11.12 See_Comment H [Aut omated message] 670) The system [employer] generated this result transmitted ref erence range: 1.78 - 5 .38 K/L. The refe rence range was not u sed to interpret this result as normal/abnor mal. # Lymphs (test code = 3.68 See_Comment H [Auto mated message] 414) The system [employer] generated this result transmitted ref erence range: 1.32 - 3 .57 K/L. The refe rence range was not u sed to interpret this result as normal/abnor mal. # Monos (test code = 1.27 See_Comment H [Autom ated message] 415) The system [employer] generated this result transmitted ref erence range: 0.30 - 0 .82 K/L. The refe rence range was not u sed to interpret this result as normal/abnor mal. # Eos (test code = 416) 0.05 See_Comment [Au tomated message] The system [employer] generated this result transmitted ref erence range: 0.04 - 0 .54 K/L. The refe rence range was not u sed to interpret this result as normal/abnor mal. # Baso (test code = 417) 0.08 See_Comment [A utomated message] The system [employer] generated this result transmitted ref erence range: 0.01 - 0 .08 K/L. The refe rence range was not u sed to interpret this result as normal/abnor mal. Immature 1 % 0-1 Granulocytes-Relative (test code = 2801) Lab Interpretation (test Abnormal code = 48423-3) [facility] W/PLT COUNT & AUTO [id number] 21:16:46 Test Item Value Reference Range Interpretation Comments WHITE BLOOD CELL COUNT (BEAKER) 16.3 K/ L 3.5-10.5 H (test code = 775) RED BLOOD CELL COUNT (BEAKER) 5.41 M/ L 4.63-6.08 (test code = 761) HEMOGLOBIN (BEAKER) (test code = 17.0 GM/DL 13.7-17.5 410) HEMATOCRIT (BEAKER) (test code = 49.0 % 40.1-51.0 411) MEAN CORPUSCULAR VOLUME (BEAKER) 90.6 fL 79.0-92.2 (test code = 753) MEAN CORPUSCULAR HEMOGLOBIN 31.4 pg 25.7-32.2 (BEAKER) (test code = 751) MEAN CORPUSCULAR HEMOGLOBIN CONC 34.7 GM/DL 32.3-36.5 (BEAKER) (test code = 752) RED CELL DISTRIBUTION WIDTH 12.6 % 11.6-14.4 (BEAKER) (test code = 412) PLATELET COUNT (BEAKER) (test 294 K/CU MM 150-450 code = 756) MEAN PLATELET VOLUME (BEAKER) 10.0 fL 9.4-12.4 (test code = 754) NUCLEATED RED BLOOD CELLS 0 /100 WBC 0-0 (BEAKER) (test code = 413) NEUTROPHILS RELATIVE PERCENT 68 % (BEAKER) (test code = 429) LYMPHOCYTES RELATIVE PERCENT 23 % (BEAKER) (test code = 430) MONOCYTES RELATIVE PERCENT 8 % (BEAKER) (test code = 431) EOSINOPHILS RELATIVE PERCENT 0 % (BEAKER) (test code = 432) BASOPHILS RELATIVE PERCENT 1 % (BEAKER) (test code = 437) NEUTROPHILS ABSOLUTE COUNT 11.12 K/ L 1.78-5.38 H (BEAKER) (test code = 670) LYMPHOCYTES ABSOLUTE COUNT 3.68 K/ L 1.32-3.57 H (BEAKER) (test code = 414) MONOCYTES ABSOLUTE COUNT (BEAKER) 1.27 K/ L 0.30-0.82 H (test code = 415) EOSINOPHILS ABSOLUTE COUNT 0.05 K/ L 0.04-0.54 (BEAKER) (test code = 416) BASOPHILS ABSOLUTE COUNT (BEAKER) 0.08 K/ L 0.01-0.08 (test code = 417) IMMATURE GRANULOCYTES-RELATIVE 1 % 0-1 PERCENT (BEAKER) (test code = 2801) RAD, CHEST, 2 [id number] 20:38:00Reason for exam:->[facility] JC : 1980 Sex: MFINAL REPORT EXAM/TECHNIQUE: PA and lateral radiograph of the chest. INDICATION: Chest pain. COMPARISON: None. FINDINGS: Devices/Objects: None. Lungs: No focal consolidation. No pleural effusion. No pneumothorax. Heart/Mediastinum: No cardiomegaly. No interstitial thickening. Osseous: No ac [place] osseous process. No suspicious osseous lesion. Upper abdomen: Unremarkable. Impression: No acutecardiopulmonary process. Signed: Allen Hauser MDReport Verified Date/Time: 10/12/2021 20:38:21 TSH/Free T4 If [id number] 20:03:14 Test Item Value Reference Range Interpretation Comments TSH (test code = 1.469 See_Comment [Automated 94931-7) message] The system which generated this result transmit pineda reference range : 0.350 - 4.940 uIU/mL. The reference range was not used to interpret this result as normal/abnormal . COLEEN (test code = COLEEN) Framing Manager ID - DENISSE M Lab Interpretation Normal (test code = 31204-3) [facility] T[facility] If [id number] 20:03:14 Test Item Value Reference Range Interpretation Comments TSH (test code = 1.469 See_Comment [Automated 38461-5) message] The system which generated this result transmit pineda reference range : 0.350 - 4.940 uIU/mL. The reference range was not used to interpret this result as normal/abnormal . COLEEN (test code = COLEEN) Framing Manager ID - DENISSE M Lab Interpretation Normal (test code = 33338-0) [facility] T4 IF [id number] 20:03:14 Test Item Value Reference Range Interpretation Comments THYROID STIMULATING HORMONE 1.469 uIU/mL 0.350-4.940 (BEAKER) (test code = 772) Framing Manager ID - DENISSE [facility] ([facility] [place]2021-10-12 19:48:53 Test Item Value Reference Range Interpretation Comments Troponin I HS (test 6 pg/ml See_Comment [Automa pineda code = 28412-2) message] The system which generated this result transmitted reference range : <=35. The reference range was not used to interpret this result as normal/abnormal . COLEEN (test code = Framing Manager ID - DENISSE COLEEN) MThe DEVELOPMENT TECHNOLOGIST STAT High Sensitivity Troponin-I results should be used in conjunction with other diagnostic information such as ECG, clinical observations and information, and patient symptoms to aid in the diagnosis of MD. Lab Interpretation Normal (test code = 35616-8) [facility] ([facility]/Nohemy Only)2021-10-12 19:48:53 Test Item Value Reference Range Interpretation Comments Troponin I HS (test 6 pg/ml See_Comment [Automa pineda code = 22398-3) message] The system which generated this result transmitted reference range : <=35. The reference range was not used to interpret this result as normal/abnormal . COLEEN (test code = Framing Manager ID - DENISSE COLEEN) Mobilization Labse DEVELOPMENT TECHNOLOGIST STAT High Sensitivity Troponin-I results should be used in conjunction with other diagnostic information such as ECG, clinical observations and information, and patient symptoms to aid in the diagnosis of MD. Lab Interpretation Normal (test code = 20228-0) [facility]ENSITIV[facility] TROPONIN [id number] 19:48:53 Test Item Value Reference Range Interpretation Comments HIGH SENSITIVITY 6 pg/ml See_Comment [Automated message] TROPONIN I (test code = The system which 1453707) generated this result transmitted ref erence range: <=35. Th e reference range was not used to interpr et this result as normal/abnormal . Framing Manager ID - DENISSE [employer]se DEVELOPMENT TECHNOLOGIST STAT High Sensitivity Troponin-I results should be used in conjunction with other diagnostic information such as ECG, clinical observations and information, and patient symptoms to aid in the diagnosis of MD.B-type Natriuretic Factor (BNP)2021-10-12 19:48:30 Test Item Value Reference Range Interpretation Comments BNP (test code = 86866-0) 16 pg/mL 0-100 COLEEN (test code = COLEEN) Framing Manager ID - DENISSE M Lab Interpretation (test Normal code = 25594-2) [facility] (BNP)2021-10-12 19:48:30 Test Item Value Reference Range Interpretation Comments BNP (test code = 90168-2) 16 pg/mL 0-100 COLEEN (test code = COLEEN) Framing Manager CHELO Haynes Lab Interpretation (test Normal code = 55571-7) [facility]-TYPE NATRIURETIC FACTOR (BNP)2021-10-12 19:48:30 Test Item Value Reference Range Interpretation Comments B-TYPE NATRIURETIC PEPTIDE (BEAKER) 16 pg/mL 0-100 (test code = 700) Framing Manager CHELO BROWNLEEasic Metabolic [id number] 19:44:59 Test Item Value Reference Range Interpretation Comments Sodium (test code = 137 meq/L 749-462 0538-2) Potassium (test code 3.5 meq/L 3.5-5.1 Specime n slightly = 2823-3) hemolyzed Chloride (test code = 102 meq/L 98-107 2075-0) CO2 (test code = 23 meq/L 2028-04) BUN (test code = 16 mg/dL 02-27 3094-0) Creatinine (test code 1.20 mg/dL 0.57-1.25 Specim en slightly = 2160-0) hemolyzed Glucose (test code = 164 mg/dL 70-105 H 2345-7) Calcium (test code = 10.7 mg/dL 8.4-10.2 H 80658-5) EGFR ([place] code = [place] [address]-2) CLINICAL DATA T O CALCULATE ESTIMATED GFR. COLEEN (test code = COLEEN) Framing Manager CHELO Haynes Lab Interpretation Abnormal (test code = 17714-2) [facility] Metabolic [id number] 19:44:59 Test Item Value Reference Range Interpretation Comments Sodium (test code = 137 meq/L 485-583 1208-2) Potassium (test code 3.5 meq/L 3.5-5.1 Specime n slightly = 2823-3) hemolyzed Chloride (test code = 102 meq/L 98-107 2075-0) CO2 (test code = 23 meq/L -2027-9) BUN (test code = 16 mg/dL - 3094-0) Creatinine (test code 1.20 mg/dL 0.57-1.25 Specim en slightly = 2160-0) hemolyzed Glucose (test code = 164 mg/dL 70-105 H 2345-7) Calcium (test code = 10.7 mg/dL 8.4-10.2 H 25691-1) EGFR (test code = [place] [address]-9) CLINICAL DATA T O CALCULATE ESTIMATED GFR. COLEEN (test code = COLEEN) Framing Manager ID - DENISSE M Lab Interpretation Abnormal (test code = 28964-5) [facility] [id number] 19:44:59 Test Item Value Reference Range Interpretation Comments SODIUM (BEAKER) (test 137 meq/L 136-145 code = 381) POTASSIUM (BEAKER) 3.5 meq/L 3.5-5.1 Specimen slightly (test code = 379) hemolyzed CHLORIDE (BEAKER) 102 meq/L 98-107 (test code = 382) CO2 (BEAKER) (test 23 meq/L 22-29 code = 355) BLOOD UREA NITROGEN 16 mg/dL 7-21 (BEAKER) (test code = 354) CREATININE (BEAKER) 1.20 mg/dL 0.57-1.25 Specimen slightly (test code = 358) hemolyzed GLUCOSE RANDOM 164 mg/dL 70-105 H (BEAKER) (test code = 652) CALCIUM (BEAKER) 10.7 mg/dL 8.4-10.2 H (test code = 697) EGFR (BEAKER) (test INSUFFIC IENT CLINICAL code = 1092) DATA TO CALCULA TE ESTIMATED GFR. Framing Manager CHELO SALCEDO MLiver [id number] 19:42:51 Test Item Value Reference Range Interpretation Comments Protein, Total (test 8.1 See_Comment Specime n slightly code = 3725-2) hemolyzed [Automated message] The system which generated this result transmit pineda reference range : 6.0 - 8.3 gm/dL . The reference range was not u sed to interpret th is result as normal/abnormal . Albumin (test code = 4.1 g/dL 3.5-5.0 Specime n slightly 22053-8) hemolyzed Total Bilirubin (test 0.9 mg/dL 0.2-1.2 Specim en slightly code = 1975-2) hemolyzed Bilirubin, Direct 0.4 mg/dL 0.1-0.5 Specimen s lightly (test code = 1967-) hemolyz ed Alkaline Phosphatase 145 U/L 40-150 (test code = 6768-6) AST (test code = 46 U/L 5-34 H Specimen sl ightly 1920-8) hemolyzed ALT (test code = 98 U/L 6-55 H Specimen sl ightly 1742-6) hemolyzed COLEEN (test code = COLEEN) Framing Manager ID - DENISSE M Lab Interpretation Abnormal (test code = 21030-8) [facility]estoLiver [id number] 19:42:51 Test Item Value Reference Range Interpretation Comments Protein, Total (test 8.1 See_Comment Specime n slightly code = 2885-2) hemolyzed [Automated message] The system which generated this result transmit pineda reference range : 6.0 - 8.3 gm/dL . The reference range was not u sed to interpret th is result as normal/abnormal . Albumin (test code = 4.1 g/dL 3.5-5.0 Specime n slightly 93300-1) hemolyzed Total Bilirubin (test 0.9 mg/dL 0.2-1.2 Specim en slightly code = 1974-2) hemolyzed Bilirubin, Direct 0.4 mg/dL 0.1-0.5 Specimen s lightly (test code = 1967-) hemolyz ed Alkaline Phosphatase 145 U/L 40-150 (test code = 6768-6) AST (test code = 46 U/L 5-34 H Specimen sl ightly 1920-8) hemolyzed ALT (test code = 98 U/L 6-55 H Specimen sl ightly 1742-6) hemolyzed COLEEN (test code = COLEEN) Framing Manager ID - DENISSE M Lab Interpretation Abnormal (test code = 38360-2) [facility]estoHEPATIC FUNCTION [id number] 19:42:51 Test Item Value Reference Range Interpretation Comments TOTAL PROTEIN (BEAKER) 8.1 gm/dL 6.0-8.3 Speci men slightly (test code = 770) hemolyzed ALBUMIN (BEAKER) (test 4.1 g/dL 3.5-5.0 Speci men slightly code = 1145) hemolyzed BILIRUBIN TOTAL 0.9 mg/dL 0.2-1.2 Specimen sli ghtly (BEAKER) (test code = hemoly zed 377) BILIRUBIN DIRECT 0.4 mg/dL 0.1-0.5 Specimen sl ightly (BEAKER) (test code = hemoly zed 706) ALKALINE PHOSPHATASE 145 U/L 40-150 (BEAKER) (test code = 346) AST (SGOT) (BEAKER) 46 U/L 5-34 H Specimen slightly (test code = 353) hemolyzed ALT (SGPT) (BEAKER) 98 U/L 6-55 H Specimen slightly (test code = 347) hemolyzed Framing Manager ID - DENISSE [id number] 19:41:30 Test Item Value Reference Range Interpretation Comments D-Dimer, Quant (test 0.80 See_Comment H [Autom ated code = 50074-6) message] The system which generated this result transmitted reference range : <0.50 MG/L FEU. The reference range was not used to interpr et this result as normal/abnormal . COLEEN (test code = COLEEN) Intended Use: The D-Dimer Assay can be used to aid in the diagnosis of Deep Vein Thrombosis (DVT) and Pulmonary Embolism Disease (PED).In patients with low pre-test probability, various studies concerning STA Liatest D-dimer test have reported that with a cutoff value of 0.50 MG/L FEU, the Negative Predictive Value (NPV) regarding the exclusion of thrombosis is within 95-100% range. Lab Interpretation Abnormal (test code = 60706-8) [facility]-[id number] 19:41:30 Test Item Value Reference Range Interpretation Comments D-Dimer, Quant (test 0.80 See_Comment H [Autom ated code = 99360-0) message] The system which generated this result transmitted reference range : <0.50 MG/L FEU. The reference range was not used to interpr et this result as normal/abnormal . COLEEN (test code = COLEEN) Intended Use: The D-Dimer Assay can be used to aid in the diagnosis of Deep Vein Thrombosis (DVT) and Pulmonary Embolism Disease (PED).In patients with low pre-test probability, various studies concerning STA Liatest D-dimer test have reported that with a cutoff value of 0.50 MG/L FEU, the Negative Predictive Value (NPV) regarding the exclusion of thrombosis is within 95-100% range. Lab Interpretation Abnormal (test code = 05187-7) [facility]estoD-[id number] 19:41:30 Test Item Value Reference Range Interpretation Comments D-DIMER QUANTITATIVE (BEAKER) 0.80 MG/L FEU <0.50 H (test code = 671) Intended Use: The D-Dimer Assay can be used to aid in the diagnosis of Deep Vein Thrombosis (DVT) and Pulmonary Embolism Disease (PED).In patients with low pre- test probability, various studies concerning STA Liatest D-dimer test have reported that with a cutoff value of 0.50 MG/L FEU, the Negative Predictive Value (NPV) regarding the exclusion of thrombosis is within 95-100% range. Prothrombin time/[id number] 19:38:54 Test Item Value Reference Interpretation Comments Range Protime (test code = 14.1 See_Comment [Autom ated 5902-2) message] The system which generated this result transmitted reference range : 11.9 - 14.2 seconds. The reference range was not used to interpret this result as normal/abnormal . INR (test code = 1.11 See_Comment [Automated Neocutis1-6) message] The system which generated this result transmitted reference range : <=5.90. The reference range was not used to interpret this result as normal/abnormal . COLEEN (test code = RECOMMENDED COLEEN) COUMADIN/WARFARIN INR THERAPY RANGESSTANDARD DOSE: 2.0 - 3.0 Includes: PROPHYLAXIS for venous thrombosis, systemic embolization; TREATMENT for venous thrombosis and/or pulmonary embolus.HIGH RISK: Target INR is 2.5-3.5 for patients with mechanical heart valves. Lab Interpretation Normal (test code = 63023-6) [facility] ModestoProthrombin time/[id number] 19:38:54 Test Item Value Reference Interpretation Comments Range Protime (test code = 14.1 See_Comment [Autom ated 5902-2) message] The system which generated this result transmitted reference range : 11.9 - 14.2 seconds. The reference range was not used to interpret this result as normal/abnormal . INR (test code = 1.11 See_Comment [Automated 6301-6) message] The system which generated this result transmitted reference range : <=5.90. The reference range was not used to interpret this result as normal/abnormal . COLEEN (test code = RECOMMENDED COLEEN) COUMADIN/WARFARIN INR THERAPY RANGESSTANDARD DOSE: 2.0 - 3.0 Includes: PROPHYLAXIS for venous thrombosis, systemic embolization; TREATMENT for venous thrombosis and/or pulmonary embolus.HIGH RISK: Target INR is 2.5-3.5 for patients with mechanical heart valves. Lab Interpretation Normal (test code = 00836-0) [facility] ModestoPROTHROMBIN TIME/[id number] 19:38:54 Test Item Value Reference Range Interpretation Comments PROTIME (BEAKER) 14.1 seconds 11.9-14.2 (test code = 759) INR (BEAKER) (test 1.11 See_Comment [Automat ed message] code = 370) The system Gu[employer] generated this result transmitted ref erence range: <=5.90. The reference range was not used to int erpret this result as normal/abnormal . RECOMMENDED COUMADIN/WARFARIN INR THERAPY RANGESSTANDARD DOSE: 2.0 - 3.0 Includes: PROPHYLAXIS for venous thrombosis, systemic embolization; TREATMENT for venous thrombosis and/or pulmonary embolus.HIGH RISK: Target INR is 2.5-3.5 for patients with mechanical heart valves.GLUCOMETER GLUCOSE- LAB USE ONLY 2018-09-29 06:34:00 Test Item Value Reference Range Interpretation Comments GLUCOMETER (test code = 99 mg/dL 70-100 KIMMY CHAPMAN METERMeter ID: [id number]) [id number] tor: [id number]
[2022-08-06 16:21] LABS: SARS-COV-2 RT PCR NEGATIVE (NEGATIVE)
--- NOTE | 2022-08-06 16:46 | RAD REPORT ---
EXAM DESCRIPTION: RAD - Chest Pa And Lat (2 Views) - 08/06/2022 4:38 pm CLINICAL HISTORY: Cough COMPARISON: None TECHNIQUE: Frontal and lateral views of the chest were obtained. FINDINGS: The lungs are slightly underinflated. Large area of airspace opacification is present in t he mid and lower left lung field. There are patchy airspace opacities seen in the right lung field. N o dense consolidation of the right lung field. Trachea remains in the midline. No hilar mass or lymphadenopathy. Heart size is normal and central vasculature is within normal limits. No pleural effusion or pneu mothorax seen. No acute bony finding noted. No aortic abnormality. IMPRESSION: Large left-sided pneumonia with scattered, patchy right lung field pneumonia as well.
--- NOTE | 2022-08-06 17:17 | ER ---
Nurse's Notes [facility] Name: Drew Jc Age: 41 yrs Sex: Male : 1980 Arrival Date: 08/06/2022 Time: 14:23 Bed 13 Private MD: Diagnosis: Unspecified bacterial pneumonia;Sepsis, unspecified organism Presentation: 08/06 17:00 Chief complaint: Patient states: SOB, cough, body aches and chest congestion that began ss 6 days ago. Coronavirus screen: Client denies travel out of the [place] in the last 14 days. Client presents with at least one sign or symptom that may indicate coronavirus-19. Ebola Screen: Patient denies exposure to infectious person. Patient denies travel to an Ebola-affected area in the 21 days before illness onset. Initial Sepsis Screen: Does the patient meet any 2 criteria? RR > 20 per min. HR > 90 bpm. Does the patient have a suspected source of infection? Yes: Productive cough/pneumonia. Risk Assessment: Do you want to hurt yourself or someone else? Patient reports no desire to harm self or others. Onset of symptoms was July 31, 2022. 17:00 Method Of Arrival: Ambulatory ss 17:00 Acuity: COCO 3 ss Historical: - Allergies: 17:02 No Known Allergies; ss - PMHx: 17:02 Diabetes - NIDDM; Hypertension; Hypothyroidism; Pancreatitis; ss - PSHx: 17:02 Appendectomy; Cholecystectomy; meniscus repair; R ankle SX; Tonsillectomy; ss - Immunization history:: Client reports receiving the 2nd dose of the Covid vaccine. - Social history:: Smoking status: Patient reports the use of cigarette tobacco products, denies chronic smoking, but will smoke occasionally. Screenin:52 [facility] ED Fall Risk Assessment (Adult) History of falling in the last 3 months, ph including since admission No falls in past 3 months (0 pts) Confusion or Disorientation No (0 pts) Intoxicated or Sedated No (0 pts) Impaired Gait No (0 pts) Mobility Assist Device Used No (0 pt) Altered Elimination No (0 pt) Score/Fall Risk Level 0 - 2 = Low Risk Oriented to surroundings, Maintained a safe environment. Abuse screen: Denies threats or abuse. Denies injuries from another. Nutritional screening: No deficits noted. Tuberculosis screening: No symptoms or risk factors identified. Assessment: 18:16 General: Appears in no apparent distress. Behavior is calm, cooperative, appropriate ph for age. Pain: Complains of pain in right lateral anterior chest and left lateral anterior chest. Neuro: Level of Consciousness is awake, alert, obeys commands, Oriented to person, place, time, situation. Cardiovascular: Rhythm is regular. Respiratory: Reports shortness of breath cough that is Airway is patent Respiratory effort is even, unlabored, Respiratory pattern is regular, symmetrical. GI: No signs and/or symptoms were reported involving the gastrointestinal system. Derm: Skin is healthy with good turgor, Skin is pink, warm \T\ dry. Musculoskeletal: Circulation, motion, and sensation intact. Range of motion: intact in all extremities. 19:53 Reassessment: report called to Chuy CHANDRA for room 405. bb Vital Signs: 17:00 BP 126 / 81; Pulse 118; Resp 18; Temp 99.7(O); Pulse Ox 100% on R/A; Weight 107.95 kg; ss Height 5 ft. 9 in. (175.26 cm); Pain 8/10; 18:53 BP 129 / 86; Pulse 112; Resp 18; Temp 101.1(O); Pulse Ox 89% on R/A; ph 17:00 Body Mass Index 35.15 (107.95 kg, 175.26 cm) ss 18:53 improved to 95% on 3L NC ph ED Course: 14:23 Patient arrived in ED. am2 14:29 Tierney Parker FNP-C [facility]. snw 14:29 Arnold Gatica MD is Attending Physician. snw 16:39 Chest Pa And Lat (2 Views) XRAY In Process Unspecified. EDMS 17:02 Triage completed. ss 17:02 Arm band placed on left wrist. ss 17:15 Case Lawson MD is Hospitalizing Provider. snw 17:29 Nichelle Peres RN is Primary Nurse. ph 17:45 Initial lab(s) drawn, by me, sent to lab. First set of blood cultures drawn by me. ph Inserted saline lock: 20 gauge in right antecubital area, using aseptic technique. Blood collected. 18:16 Patient has correct armband on for positive identification. Bed in low position. Call ph light in reach. Side rails up X 1. morning show producer on. Pulse ox on. NIBP on. Door closed. Noise minimized. Warm blanket given. 18:53 No provider procedures requiring assistance completed. Patient admitted, IV remains in ph place. Administered Medications: 18:10 Drug: Cefepime 1 grams Route: IVPB; Rate: 200 ml/hr; Infused Over: 30 mins; Site: right ph antecubital; 18:54 Follow up: Response: No adverse reaction; IV Status: Completed infusion ph 18:16 Drug: Tussionex Pennkinetic ER (chlorpheniramine-hydrocodone) Suspension 5 ml Route: PO;ph 18:54 Follow up: Response: No adverse reaction ph 18:52 Drug: vancoMYCIN 1.5 grams Route: IVPB; Rate: calculated rate; Site: right antecubital; ph 20:05 Follow up: Response: No adverse reaction; IV Status: Infusion continued upon admission ph 18:52 Drug: NS 0.9% 1000 ml Route: IV; Rate: 1 bolus; Site: right antecubital; ph 20:04 Follow up: Response: No adverse reaction; IV Status: Completed infusion; IV Intake: ph 1000ml 18:52 Drug: Ketorolac 30 mg Route: IVP; Site: right antecubital; ph 18:54 Follow up: Response: No adverse reaction ph 18:53 Drug: Tylenol 1000 mg Route: PO; ph 18:54 Follow up: Response: No adverse reaction ph Medication: 18:16 VIS not applicable for this client. ph Intake: 20:04 IV: 1000ml; Total: 1000ml. ph Outcome: 17:16 Decision to Hospitalize by Provider. snw 19:56 Patient left the ED. bb Signatures: Dispatcher [employer] EDTierney Ferrer FNP-C COMPUTER FORENSIC SPECIALIST-Csnw Hollie Armstrong RN RN Ani Pete RN RN ss Hall, Patricia, RN RN Jeannie Almanza
--- NOTE | 2022-08-06 17:17 | EDPHYS ---
Physician Documentation [facility] Name: Drew Jc Age: 41 yrs Sex: Male : 1980 Arrival Date: 08/06/2022 Time: 14:23 Bed 13 Private MD: ED Physician Arnold Gatica HPI: 08/06 15:34 This 41 yrs old Male presents to ER via Unassigned with complaints of snw bodyaches, Shortness Of Breath, Chest Pain - due to resp issue. 15:34 The patient or guardian reports cough, flu symptoms, low-grade fever, myalgias, no snw appetite. Modifying factors: The symptoms are alleviated by nothing. Severity of symptoms: At their worst the symptoms were moderate. The patient has not experienced similar symptoms in the past. The patient has not recently seen a physician. s/s x 7days. Historical: - Allergies: 17:02 No Known Allergies; ss - PMHx: 17:02 Diabetes - NIDDM; Hypertension; Hypothyroidism; Pancreatitis; ss - PSHx: 17:02 Appendectomy; Cholecystectomy; meniscus repair; R ankle SX; Tonsillectomy; ss - Immunization history:: Client reports receiving the 2nd dose of the Covid vaccine. - Social history:: Smoking status: Patient reports the use of cigarette tobacco products, denies chronic smoking, but will smoke occasionally. ROS: 15:34 Eyes: Negative for injury, pain, redness, and discharge, ENT: Negative for injury, snw pain, and discharge, Neck: Negative for injury, pain, and swelling, Cardiovascular: Negative for chest pain, palpitations, and edema. 15:34 Abdomen/GI: Negative for abdominal pain, nausea, vomiting, diarrhea, and constipation, Back: Negative for injury and pain, : Negative for injury, bleeding, discharge, and swelling, MS/Extremity: Negative for injury and deformity, Skin: Negative for injury, rash, and discoloration. 15:34 Constitutional: Positive for body aches, chills, fatigue, fever, malaise, poor PO intake. 15:34 Respiratory: Positive for cough, dyspnea on exertion, shortness of breath. 15:34 Neuro: Positive for altered mental status. Exam: 15:33 Head/Face: Normocephalic, atraumatic. Eyes: Pupils equal round and reactive to light, snw extra-ocular motions intact. Lids and lashes normal. Conjunctiva and sclera are non-icteric and not injected. Cornea within normal limits. Periorbital areas with no swelling, redness, or edema. ENT: Nares patent. No nasal discharge, no septal abnormalities noted. Tympanic membranes are normal and external auditory canals are clear. Oropharynx with no redness, swelling, or masses, exudates, or evidence of obstruction, uvula midline. Mucous membranes moist. Neck: Trachea midline, no thyromegaly or masses palpated, and no cervical lymphadenopathy. Supple, full range of motion without nuchal rigidity, or vertebral point tenderness. No Meningismus. Chest/axilla: Normal chest wall appearance and motion. Nontender with no deformity. No lesions are appreciated. 15:33 Abdomen/GI: Soft, non-tender, with normal bowel sounds. No distension or tympany. No guarding or rebound. No evidence of tenderness throughout. Back: No spinal tenderness. No costovertebral tenderness. Full range of motion. Skin: Warm, dry with normal turgor. Normal color with no rashes, no lesions, and no evidence of cellulitis. MS/ Extremity: Pulses equal, no cyanosis. Neurovascular intact. Full, normal range of motion. Neuro: Awake and alert, GCS 15, oriented to person, place, time, and situation. Cranial nerves II-XII grossly intact. Motor strength 5/5 in all extremities. Sensory grossly intact. Cerebellar exam normal. Normal gait. Psych: Awake, alert, with orientation to person, place and time. Behavior, mood, and affect are within normal limits. 15:33 Constitutional: The patient appears alert, awake, obviously ill, uncomfortable. 15:33 Cardiovascular: Rate: tachycardic, Rhythm: regular, Heart sounds: normal. 15:33 Respiratory: the patient does not display signs of respiratory distress, Respirations: shallow respirations, that is mild, Breath sounds: rhonchi, that are moderate, are heard in the left posterior lower lobe. Vital Signs: 17:00 BP 126 / 81; Pulse 118; Resp 18; Temp 99.7(O); Pulse Ox 100% on R/A; Weight 107.95 kg; ss Height 5 ft. 9 in. (175.26 cm); Pain 8/10; 18:53 BP 129 / 86; Pulse 112; Resp 18; Temp 101.1(O); Pulse Ox 89% on R/A; ph 17:00 Body Mass Index 35.15 (107.95 kg, 175.26 cm) ss 18:53 improved to 95% on 3L NC ph MDM: 15:24 Patient medically screened. snw 17:03 Data reviewed: radiologic studies, plain films. Counseling: I had a detailed discussion snw with the patient and/or guardian regarding: the historical points, exam findings, and any diagnostic results supporting the discharge/admit diagnosis, radiology results, the need for further work-up and treatment in the hospital. Physician consultation: Rajesh Burroughs MD was contacted at 17:04, regarding consult, Pt to be started on Cefepime and Vancomycin post blood cultures. 08/06 14:30 Order name: COVID-19/FLU A+B; Complete Time: 16:22 snw 08/06 16:51 Order name: Blood Culture Adult (2) snw 08/06 16:51 Order name: CBC with Diff; Complete Time: 18:10 snw 08/06 16:51 Order name: CMP; Complete Time: 18:23 snw 08/06 16:51 Order name: Lactate w/ 2H reflex if indic.; Complete Time: 18:38 snw 08/06 16:51 Order name: Protime (+inr); Complete Time: 18:10 snw 08/06 15:28 Order name: Chest Pa And Lat (2 Views) XRAY; Complete Time: 16:50 snw 08/06 16:51 Order name: Ptt, Activated; Complete Time: 18:10 snw 08/06 18:09 Order name: Chest Angio EDMS 08/06 16:51 Order name: EKG; Complete Time: 16:51 snw 08/06 16:51 Order name: Accucheck; Complete Time: 17:57 snw 08/06 16:51 Order name: Cardiac monitoring; Complete Time: 17:57 snw 08/06 16:51 Order name: EKG - Nurse/Tech; Complete Time: 18:30 snw 08/06 16:51 Order name: IV Saline Lock - Large Bore; Complete Time: 17:57 snw 08/06 16:51 Order name: Labs collected and sent; Complete Time: 17:57 snw 08/06 16:51 Order name: O2 Per Protocol; Complete Time: 17:57 snw 08/06 16:51 Order name: O2 Sat Monitoring; Complete Time: 17:57 snw 08/06 16:51 Order name: Vital Signs; Complete Time: 17:57 snw 08/06 17:07 Order name: Misc. Order: as soon as second cultures have been drawn, start abx; snw Complete Time: 18:16 EC:43 Rate is 110 beats/min. Rhythm is regular. QRS interval is prolonged. Clinical snw impression: NSR w/ Non-specific ST/T Changes and Sinus arrythmia. Administered Medications: 18:10 Drug: Cefepime 1 grams Route: IVPB; Rate: 200 ml/hr; Infused Over: 30 mins; Site: right ph antecubital; 18:54 Follow up: Response: No adverse reaction; IV Status: Completed infusion ph 18:16 Drug: Tussionex Pennkinetic ER (chlorpheniramine-hydrocodone) Suspension 5 ml Route: PO;ph 18:54 Follow up: Response: No adverse reaction ph 18:52 Drug: vancoMYCIN 1.5 grams Route: IVPB; Rate: calculated rate; Site: right antecubital; ph 20:05 Follow up: Response: No adverse reaction; IV Status: Infusion continued upon admission ph 18:52 Drug: NS 0.9% 1000 ml Route: IV; Rate: 1 bolus; Site: right antecubital; ph 20:04 Follow up: Response: No adverse reaction; IV Status: Completed infusion; IV Intake: ph 1000ml 18:52 Drug: Ketorolac 30 mg Route: IVP; Site: right antecubital; ph 18:54 Follow up: Response: No adverse reaction ph 18:53 Drug: Tylenol 1000 mg Route: PO; ph 18:54 Follow up: Response: No adverse reaction ph Disposition: 17:59 Co-signature as Attending Physician, Arnold Gatica MD I agree with the assessment and rt plan of care. Disposition Summary: 08/06/22 17:16 Hospitalization Ordered Hospitalization Status: Inpatient Admission snw Provider: Case Lawson Location: Telemetry/[facility] (Inpatient) snw Condition: Stable snw Problem: new snw Symptoms: are unchanged snw Bed/Room Type: Standard snw Room Assignment: 405(08/06/22 19:19) dw Diagnosis - Unspecified bacterial pneumonia snw - Sepsis, unspecified organism snw Forms: - Medication Reconciliation Form snw - SBAR form snw Signatures: Dispatcher [employer] Shyann Nuno RN RN dw Tierney Parker, STRATEGIC MARKETING LEADER-C STRATEGIC MARKETING LEADER-Csnw Ani Cook RN RN ss Nichelle Peres RN RN ph [place], Ryan, MD MD rt Corrections: (The following items were deleted from the chart) 19:19 17:16 snw dw
[2022-08-06 18:02] LABS: Hematocrit 52.3 % (39.6-49.0); Lymphocytes % 17.4 % (15.3-44.8); MCV 88.4 fL (80-100); MPV 9.1 fL (7.6-11.3); RBC Red Blood Cell Count 5.92 M/uL (4.33-5.43)
[2022-08-06] MEDS ORDERED: HYDROCODONE/CHLORPHEN 5 ML/OSYR ONE (18:05)
[2022-08-06] MEDS ORDERED: NA CHLORIDE 0.9% 100 ML IV ONE (18:05)
[2022-08-06] MEDS ORDERED: CEFEPIME 1 GM/VIAL ONE (18:05)
[2022-08-06] MEDS ORDERED: ACETAMINOPHEN 500 MG TAB PO PRN (18:07)
[2022-08-06 18:22] LABS: Albumin 3.2 g/dL (3.4-5.0); Bilirubin Total 0.5 mg/dL (0.2-1.0); Potassium 3.9 mmol/L (3.5-5.1); Protein, Total 7.8 g/dL (6.4-8.2)
[2022-08-06] MEDS ORDERED: NA CHLORIDE 0.9% 500 ML ONE (18:25)
[2022-08-06] MEDS ORDERED: VANCOMYCIN 1 GM/VIAL ONE (18:25)
[2022-08-06] MEDS ORDERED: VANCOMYCIN 500 MG/VIAL ONE (18:25)
[2022-08-06] MEDS ORDERED: NA CHLORIDE 0.9% 1,000 ML ONE (18:34)
[2022-08-06] MEDS ORDERED: ACETAMINOPHEN 500 MG TAB ONE (18:42)
[2022-08-06] MEDS ORDERED: KETOROLAC 30 MG/ML INJ ONE (18:49)
--- NOTE | 2022-08-06 18:50 | P.HP ---
Certification for Inpatient With expected LOS: >2 Midnights Patient will require the following post-hospital care: None Practitioner: I am a practitioner with admitting privileges, knowledge of patient current condition, hospital course, and medical plan of care. Services: Services provided to patient in accordance with Admission requirements found in Title 42 Section 412.3 of the Code of Federal Regulations Patient History Date of Service: 08/06/22 Reason for admission: CAP History of Present Illness: 41-year-old male with past medical history of hypertension, diabetes mellitus, HLD, obesity presented to the hospital shortness of breath, fevers, chills and cough. He states that the initial symptoms of chills, fevers, non- productive cough started last . On Thursday, his symptoms progressively got worse and started to feel congested, with non-radiating, tight, chest pain 8/10, headaches, and mild nausea. He medicated himself with Ibuprofen, Nyquil, and Robitussin with no relief. Today, his breathing worsened again, so he decided to come to the emergency room for treatment. He also stated that he felt disoriented the past 2 nights with decreased appetite. His symptoms are aggravated with exertion and not relieved with nothing. Patient will be admitted to the hospital under the care of Dr. Lawson with pulmonology consultation due to community acquired pneumonia. His labs also demonstrated hyponatremia with a sodium of 132. Blood cultures are pending. Allergies No Known Allergies Allergy (Verified 11/29/21 13:46) Home medications list reviewed: Yes Home Medications: Empagliflozin/Metformin HCl [Synjardy Xr 12.5-1,000 mg Tab] 1 tab PO DAILY 04/12/18 Irbesartan [Avapro*] 300 mg PO DAILY 04/12/18 Omeprazole [Prilosec] 40 mg PO DAILY 04/12/18 Rosuvastatin [Crestor*] 5 mg PO BEDTIME 04/12/18 Ascorbic Acid [Vitamin C] 500 mg PO DAILY 09/14/19 Ezetimibe [Zetia*] 10 mg PO BEDTIME 09/14/19 Aspirin [Lo-Dose Aspirin EC] 81 mg PO DAILY 11/29/21 Cholecalciferol (Vitamin D3) [Vitamin D3] 25,000 unit PO DIRECTED 11/29/21 Famotidine [Pepcid] 40 mg PO BEDTIME 11/29/21 Fenofibrate,Micronized [Fenofibrate] 134 mg PO DAILY 11/29/21 Levothyroxine Sodium [Levoxyl] 100 mcg PO DAILY 11/29/21 Metoprolol Succinate [Toprol Xl] 25 mg PO BEDTIME 11/29/21 Semaglutide [Ozempic] 0.5 mg SQ DIRECTED 11/29/21 - Past Medical/Surgical History Diabetic: Yes -: NIDDM -: HTN -: hypothyroidism -: pancreatitis -: hyperlipidemia -: tonsillectomy -: paolo -: appe - Family History Father -: Heart disease, Hypertension, Diabetes, Kidney disease Mother -: Hypertension, Diabetes, Cancer Notes: pancreatic cancer Brother -: Hypertension, Diabetes - Social History Smoking Status: Former smoker Alcohol use: No CD- Drugs: No Caffeine use: Yes Review of Systems 10-point ROS is otherwise unremarkable General: Fever, Chills, Weakness Respiratory: Cough, Shortness of Breath, SOB with Excertion Cardiovascular: Chest Pain, Orthopnea Gastrointestinal: Nausea Physical Examination - Vital Signs Temperature: 99.7 F Blood Pressure: 126/81 Pulse: 118 Respirations: 18 Pulse Ox (%): 100 - Physical Exam General: Alert, Oriented x3 HEENT: Atraumatic, Normocephalic Neck: Supple, 2+ carotid pulse no bruit Respiratory: Crackles/rales Cardiovascular: No edema, Normal pulses, Regular rate/rhythm Capillary refill: <2 Seconds Gastrointestinal: Normal bowel sounds, No tenderness, No masses Musculoskeletal: No clubbing, No swelling Integumentary: No rashes, No breakdown - Studies Laboratory Data (last 24 hrs) 08/06/22 17:45: PT 11.0, INR 1.00, APTT 30.5 08/06/22 17:45: Sodium 132 L, Potassium 3.9, BUN 19 H, Creatinine 1.17, Glucose 107 H, Total Bilirubin 0.5, AST 70 H, ALT 32, Alkaline Phosphatase 93 08/06/22 17:45: WBC 5.50, Hgb 18.1 H, Hct 52.3 H, Plt Count 169 Assessment and Plan - Plan Assessment Community Acquired Pneumonia Hyponatremia HLD DM2 HTN Plan Community Acquired Pneumonia -CXR- Large left-sided pneumonia with scattered, patchy right lung field pneumonia as well -Continue nebulizer treatments, steroids, oxygen therapy as needed -Continue Vancomycin and Cefepime -Pulmonology consulted, recommendations appreciated -Encourage I/S, pulmonary toileting -BCX pending Hyponatremia - Sodium 132 -Encourage nutrition - Strict I/O - BMP in am HLD -Continue statin DM2 - Continue insulin sliding scale with Accu-Cheks -Carb control diet -A1C 6.4 HTN- continue home medication when appropriate PPX- Lovenox/PPI Advance directive Full code Discharge Plan: Home Plan to discharge in: Greater than 2 days - Advance Directives Does patient have a Living Will: No Does patient have a Durable POA for Healthcare: No - Code Status/Comfort Care Code Status Assessed: Yes (Full code) Critical Care: No Time Spent Managing Pts Care (In Minutes): 55
[2022-08-06] MEDS ORDERED: VANCOMYCIN 2.75 GM in NA CHLORIDE 0.9% 500 ML IVPB ONE (19:00)
[2022-08-06] MEDS ORDERED: IPRATROPIUM BROM 0.5MG/2.5ML ONE (19:39)
[2022-08-06] MEDS ORDERED: ALBUTEROL 2.5 MG/3 ML NEB SOL ONE (19:39)
[2022-08-06] MEDS: ALBUTEROL 2.5 MG/3 ML NEB SOL NEB SCH (20:00)
--- NOTE | 2022-08-06 20:23 | RAD REPORT ---
EXAM DESCRIPTION: CT - Chest Angio - 08/06/2022 7:52 pm CLINICAL HISTORY: LUNG MASS/PE COMPARISON: Chest Abd Pelvis Wo Con dated 10/08/2021; Chest Pa And Lat (2 Views) dated 08/06/2022 TECHNIQUE: Dynamically enhanced 3 mm thick images of the chest were obtained during administration o f approximately 150mL Isovue 370 IV contrast. Coronal and oblique MIP reconstruction images were gene rated and reviewed. Exam utilizes a protocol to evaluate the pulmonary arterial tree. All CT scans are performed using dose optimization technique as appropriate and may include automated exposure control or mA/KV adjustment according to patient size. FINDINGS: No pulmonary emboli are identified. The aorta as imaged shows no acute or suspicious finding. No pericardial thickening or effusion. Extensive airspace opacification is present filling the majority of the left lower lobe and substanti al portions of the left upper lobe. Only small amounts of aerated lung parenchyma noted on the left. Air bronchograms are present. Patient has significant airspace opacification in the right upper lobe, right middle lobe and right lower lobe. No pleural effusion or pleural thickening. No mediastinal or hilar suspicious masses. No chest wall masses or abnormal axillary lymphadenopathy. IMPRESSION: No pulmonary emboli identified. Very large left-sided pneumonia involving the majority of the left lung field.Less pronounced but sti ll significant amounts of right lung field pneumonia. All lobes are involved. Extent of pneumonia is more pronounced than suspected by the plain films.
[2022-08-06] MEDS: ENOXAPARIN 40 MG/0.4 ML SQ SCH (20:54)
[2022-08-06] MEDS: EZETIMIBE 10 MG TAB PO SCH (20:54)
[2022-08-06] MEDS: ROSUVASTATIN 10 MG TAB PO SCH (20:54)
[2022-08-06] MEDS: INSULIN -REGULAR HUMAN 50 UNIT/0.5 ML ML SQ SCH (20:54)
[2022-08-06] MEDS ORDERED: CEFEPIME 1 GM in NA CHLORIDE 0.9% 100 ML IV SCH (21:00)
[2022-08-06 21:36] VITALS: BMI 35.1
[2022-08-06] MEDS: IPRATROPIUM BROM 0.5MG/2.5ML NEB SCH (22:00)
[2022-08-07] MEDS: METHYLPREDNISOLONE 40 MG INJ IV SCH ×2 (00:29→08:18)
[2022-08-07] MEDS: IPRATROPIUM BROM 0.5MG/2.5ML NEB SCH ×2 (02:25→07:47)
[2022-08-07] MEDS: ALBUTEROL 2.5 MG/3 ML NEB SOL NEB SCH ×4 (02:25→20:00)
[2022-08-07 02:38] LABS: Absolute Lymphocytes (CBC) 1.5 K/uL (0.7-4.9); Hematocrit 45.8 % (39.6-49.0); Lymphocytes % 23.2 % (15.3-44.8); MCV 88.1 fL (80-100); MPV 8.9 fL (7.6-11.3)
[2022-08-07] MEDS: HYDROCODONE/CHLORPHEN 5 ML/OSYR PO PRN ×2 (03:19→21:39)
[2022-08-07] MEDS ORDERED: VANCOMYCIN 2 GM in NA CHLORIDE 0.9% 500 ML IVPB SCH (07:00)
[2022-08-07] MEDS: INSULIN -REGULAR HUMAN 50 UNIT/0.5 ML ML SQ SCH ×4 (07:30→21:00)
[2022-08-07] MEDS: ENOXAPARIN 40 MG/0.4 ML SQ SCH (08:18)
[2022-08-07] MEDS: PANTOPRAZOLE 40MG TABLET PO SCH ×2 (08:19→17:30)
[2022-08-07] MEDS ORDERED: CEFEPIME 2 GM in NA CHLORIDE 0.9% 100 ML IV SCH (09:00)
[2022-08-07] MEDS ORDERED: VANCOMYCIN 1.75 GM in NA CHLORIDE 0.9% 500 ML IVPB SCH (09:00)
--- NOTE | 2022-08-07 12:58 | P.CNS ---
Date of Consult: 08/07/22 Reason for Consult: Severe pneumonia Chief Complaint: CAP History of Present Illness: Patient is 41 years of age she got sick last day started having fever chills productive cough sided chest pain and up with severe community-acquired pneumonia he is hypoxic right now feeling better week Allergies No Known Allergies Allergy (Verified 11/29/21 13:46) Home Medications: Empagliflozin/Metformin HCl [Synjardy Xr 12.5-1,000 mg Tab] 1 tab PO DAILY 04/12/18 Irbesartan [Avapro*] 300 mg PO DAILY 04/12/18 Omeprazole [Prilosec] 40 mg PO DAILY 04/12/18 Rosuvastatin [Crestor*] 5 mg PO BEDTIME 04/12/18 Ascorbic Acid [Vitamin C] 500 mg PO DAILY 09/14/19 Ezetimibe [Zetia*] 10 mg PO BEDTIME 09/14/19 Aspirin [Lo-Dose Aspirin EC] 81 mg PO DAILY 11/29/21 Cholecalciferol (Vitamin D3) [Vitamin D3] 25,000 unit PO DIRECTED 11/29/21 Famotidine [Pepcid] 40 mg PO BEDTIME 11/29/21 Levothyroxine Sodium [Levoxyl] 100 mcg PO DAILY 11/29/21 Nebivolol HCl [Bystolic] 10 mg PO BEDTIME 08/06/22 Tirzepatide [Mounjaro] 5 mg SQ EVERY 7TH DAY 08/06/22 - Past Medical/Surgical History Diabetic: Yes -: NIDDM -: HTN -: hypothyroidism -: pancreatitis -: hyperlipidemia -: tonsillectomy -: paolo -: appe - Family History Father Medical History: Heart disease, Hypertension, Diabetes, Kidney disease Mother Medical History: Hypertension, Diabetes, Cancer Notes: pancreatic cancer Brother Medical History: Hypertension, Diabetes - Social History Smoking Status: Current some day smoker Alcohol use: No CD- Drugs: No Caffeine use: Yes Place of Residence: Home Review of Systems General: Weakness Respiratory: Cough, Shortness of Breath Cardiovascular: Chest Pain Physical Examination Temp Pulse Resp BP Pulse Ox 97.3 F 83 16 131/68 92 08/07/22 12:00 08/07/22 12:00 08/07/22 12:00 08/07/22 12:00 08/07/22 12:00 General: Alert, In no apparent distress, Mild distress Respiratory: Crackles/rales (Crackles at the left base) Cardiovascular: No edema, Regular rate/rhythm, Normal S1 S2 Gastrointestinal: Normal bowel sounds, Soft and benign Laboratory Data (last 24 hrs) 08/06/22 17:45: PT 11.0, INR 1.00, APTT 30.5 08/06/22 17:45: Sodium 132 L, Potassium 3.9, BUN 19 H, Creatinine 1.17, Glucose 107 H, Total Bilirubin 0.5, AST 70 H, ALT 32, Alkaline Phosphatase 93 08/06/22 17:45: WBC 5.50, Hgb 18.1 H, Hct 52.3 H, Plt Count 169 - Problems (1) Pneumonia Current Visit: Yes Status: Acute Plan: Patient is 41 years of age admitted with severe community-acquired pneumonia White count is normal signs stable during high flow oxygen had some fever yesterday recommend changing to IV high-dose levofloxacin and Rocephin he does not have risk factors for Pseudomonas infection labs chest x-rays all reviewed he has bilateral infiltrates left greater than right Qualifiers: Pneumonia type: due to unspecified organism
[2022-08-07] MEDS ORDERED: FUROSEMIDE 20 MG/ 2ML VIAL IV ONE (13:00)
[2022-08-07] MEDS: Levofloxacin 750mg IV 750 MG/150 ML BAG IV SCH (13:52)
--- NOTE | 2022-08-07 17:45 | EKG ---
Test Date: 2022-08-06 Test Time: 18:39:30 Mechanical Estimator: KHUSHI MEASUREMENT RESULTS: Intervals: Rate: 110 DE: 154 QRSD: 138 QT: 350 QTc: 473 [place]: P: 41 DE: 154 QRS: 246 T: 4 INTERPRETIVE STATEMENTS: Sinus tachycardia Possible Left atrial enlargement Right bundle branch block Abnormal ECG Compared to ECG 10/07/2021 11:21:16 Right bundle-branch block now present Right superior axis no longer present Incomplete right bundle-branch block no longer present Right ventricular hypertrophy no longer present Electronically Signed On 08-07-22 17:43:18 [employer] by Hair Matos
[2022-08-07] MEDS: predniSONE 20 MG TAB PO SCH (21:33)
[2022-08-07] MEDS: EZETIMIBE 10 MG TAB PO SCH (21:33)
[2022-08-07] MEDS: ROSUVASTATIN 10 MG TAB PO SCH (21:33)
[2022-08-07] MEDS: MORPHINE 2 MG/ML SYR IV PRN (22:48)
[2022-08-07] MEDS: NEBIVOLOL HCL 5 MG TAB PO SCH (22:48)
[2022-08-07] MEDS: NA CHLORIDE 0.9% 1,000 ML IV SCH (22:49)
[2022-08-08] MEDS: ALBUTEROL 2.5 MG/3 ML NEB SOL NEB SCH ×4 (02:05→20:45)
[2022-08-08 04:15] LABS: Absolute Lymphocytes (CBC) 1.2 K/uL (0.7-4.9); Lymphocytes % 13.9 % (15.3-44.8); MCV 88.4 fL (80-100); MPV 8.7 fL (7.6-11.3); RBC Red Blood Cell Count 5.09 M/uL (4.33-5.43)
[2022-08-08 04:29] LABS: Potassium 4.2 mmol/L (3.5-5.1)
--- NOTE | 2022-08-08 05:06 | P.PN ---
Subjective Date of Service: 08/07/22 PATIENT IS STILL SHORT OF BREATH. CLINICAL SYMPTOMS ARE STILL NOT THAT MUCH IMPROVED. O2 REQUIREMENTS HAVE DECREASED. PATIENT IS ON HIGH-FLOW OXYGEN AND THIS HAS DECREASED FROM 15 L TO 11 L. PULMONARY CONSULTATION WELL. Review of Systems 10-point ROS is otherwise unremarkable Physical Examination - Vital Signs Temperature: 97.7 F Blood Pressure: 144/84 Pulse: 88 Respirations: 18 Pulse Ox (%): 94 - Physical Exam General: Alert, In no apparent distress, Oriented x3 Respiratory: Expiratory wheezes, Rhonchi/gurgles Cardiovascular: Regular rate/rhythm, Normal S1 S2, No murmurs Gastrointestinal: Normal bowel sounds, Soft and benign, Non-distended, No tenderness Musculoskeletal: No clubbing, No swelling, No tenderness Neurological: Sensation intact, Cranial nerves 3-12 intact - Studies Medications List Reviewed: Yes Assessment & Plan - Problems (Diagnosis) (1) Multifocal pneumonia Current Visit: Yes Status: Acute (2) HTN (hypertension) Onset Date: 04/13/18 Current Visit: No Status: Acute Qualifiers: Hypertension type: essential hypertension - Plan 1. CONTINUE WITH IV ANTIBIOTICS 2. AWAITING SPUTUM AND BLOOD CULTURE 3. REPEAT CHEST X-RAY 4. CT SCAN OF THE CHEST REVIEWED 5. STRICT BLOOD SUGAR CONTROL 6. CONTINUE WITH NEBS NEEDED 7. O2 PER PROTOCOL 8. CONTINUE WITH GENTLE HYDRATION 9. REPEAT LABS INCLUDING CBC AND RENAL FUNCTION IN A.M. 10. PULMONARY CONSULTATION 11. GI AND DVT PROPHYLAXIS Discharge Plan: Home Plan to discharge in: Greater than 2 days - Advance Directives Does patient have a Living Will: No Does patient have a Durable POA for Healthcare: No - Code Status/Comfort Care Code Status Assessed: Yes Code Status: Full Code Critical Care: No Time Spent Managing PTS Care (In Minutes): 30
--- NOTE | 2022-08-08 05:07 | P.PN ---
Date of Service: 08/08/22 Subjective Patient is doing okay. Oxygen has decreased to 6 L. Repeat chest x-ray in the morning. Anticipate discharge over the next 3 to 4 days. Review of Systems 10-point ROS is otherwise unremarkable Physical Examination - Vital Signs REVIEWED - Physical Exam General: Alert, In no apparent distress, Oriented x3 Respiratory: Expiratory wheezes, Rhonchi/gurgles Cardiovascular: Regular rate/rhythm, Normal S1 S2, No murmurs Gastrointestinal: Normal bowel sounds, Soft and benign, Non-distended, No tenderness Musculoskeletal: No clubbing, No swelling, No tenderness Neurological: Sensation intact, Cranial nerves 3-12 intact Assessment & Plan - Problems (Diagnosis) (1) Multifocal pneumonia Current Visit: Yes Status: Acute (2) HTN (hypertension) Onset Date: 04/13/18 Current Visit: No Status: Acute Qualifiers: Hypertension type: essential hypertension - Plan CONTINUE WITH POC MENTIONED BELOW: 1. CONTINUE WITH IV ANTIBIOTICS-SWITCHED TO LEVAQUIN AND ROCEPHIN 2. AWAITING SPUTUM AND BLOOD CULTURE 3. REPEAT CHEST X-RAY 4. CT SCAN OF THE CHEST REVIEWED 5. STRICT BLOOD SUGAR CONTROL 6. CONTINUE WITH NEBS NEEDED 7. O2 PER PROTOCOL 8. CONTINUE WITH GENTLE HYDRATION 9. REPEAT LABS INCLUDING CBC AND RENAL FUNCTION IN A.M. 10. PULMONARY CONSULTATION 11. GI AND DVT PROPHYLAXIS
[2022-08-08] MEDS: HYDROCODONE/CHLORPHEN 5 ML/OSYR PO PRN (06:23)
[2022-08-08] MEDS: NA CHLORIDE 0.9% 1,000 ML IV SCH ×2 (06:24→20:34)
[2022-08-08] MEDS: INSULIN -REGULAR HUMAN 50 UNIT/0.5 ML ML SQ SCH ×4 (07:30→20:13)
[2022-08-08] MEDS: CEFTRIAXONE 1,000 MG in NA CHLORIDE 0.9% 50 ML IVPB SCH (08:37)
[2022-08-08] MEDS: LEVOTHYROXINE SOD 0.1 MG TAB PO SCH (08:38)
[2022-08-08] MEDS: predniSONE 20 MG TAB PO SCH ×2 (08:38→20:38)
[2022-08-08] MEDS: PANTOPRAZOLE 40MG TABLET PO SCH ×2 (08:38→16:30)
[2022-08-08] MEDS: ENOXAPARIN 40 MG/0.4 ML SQ SCH (08:38)
[2022-08-08] MEDS: ONDANSETRON 4 MG/2 ML VIAL IV PRN (12:59)
[2022-08-08 13:43] LABS: Specific Gravity 1.027 (1.005-1.030); Urine Bacteria <20 /HPF (<20); Urine Bilirubin NEGATIVE (Negative); Urine Blood 2+ (Negative); Urine Clarity Clear (Clear); Urine Color Light-Yellow (Yellow); Urine Glucose 4+ (Over) (Negative); Urine Mucus Slight /HPF (None Seen); Urine Protein TRACE (Negative); Urine RBC >50 /HPF (None Seen); Urine Urobilinogen Normal (Normal)
[2022-08-08] MEDS: Levofloxacin 750mg IV 750 MG/150 ML BAG IV SCH (15:53)
[2022-08-08] MEDS: NEBIVOLOL HCL 5 MG TAB PO SCH (20:37)
[2022-08-08] MEDS: ROSUVASTATIN 10 MG TAB PO SCH (20:38)
[2022-08-08] MEDS ORDERED: ROSUVASTATIN 10 MG TAB PO SCH (21:00)
[2022-08-08] MEDS ORDERED: EZETIMIBE 10 MG TAB PO SCH (21:00)
[2022-08-08] MEDS ORDERED: FAMOTIDINE 20 MG TAB PO SCH (21:00)
[2022-08-08] MEDS: MORPHINE 2 MG/ML SYR IV PRN (21:00)
[2022-08-09] MEDS: ALBUTEROL 2.5 MG/3 ML NEB SOL NEB SCH ×2 (02:40→09:00)
[2022-08-09] MEDS: NA CHLORIDE 0.9% 1,000 ML IV SCH (03:00)
[2022-08-09] MEDS: ONDANSETRON 4 MG/2 ML VIAL IV PRN ×2 (03:00→11:41)
[2022-08-09] MEDS: HYDROCODONE/CHLORPHEN 5 ML/OSYR PO PRN (03:00)
[2022-08-09 06:09] LABS: Hematocrit 44.2 % (39.6-49.0); Lymphocytes % 8.7 % (15.3-44.8); MCV 88.4 fL (80-100); MPV 8.9 fL (7.6-11.3); RBC Red Blood Cell Count 5.01 M/uL (4.33-5.43)
[2022-08-09 06:17] LABS: Albumin 2.4 g/dL (3.4-5.0); Bilirubin Total 0.6 mg/dL (0.2-1.0); Magnesium 1.8 mg/dL (1.6-2.4); Phosphorus 3.4 mg/dL (2.5-4.9); Potassium 4.4 mmol/L (3.5-5.1); Protein, Total 6.4 g/dL (6.4-8.2)
[2022-08-09] MEDS: INSULIN -REGULAR HUMAN 50 UNIT/0.5 ML ML SQ SCH ×2 (07:30→11:30)
[2022-08-09] MEDS ORDERED: PANTOPRAZOLE 40MG TABLET PO SCH ×2 (07:30→09:00)
--- NOTE | 2022-08-09 07:42 | RAD REPORT ---
EXAM DESCRIPTION: RAD - Chest Single View - 08/09/2022 6:48 am CLINICAL HISTORY: pneumonia COMPARISON: Chest Pa And Lat (2 Views) dated 08/06/2022; Chest Single View dated 10/07/2021; Chest Pa And Lat (2 Views) dated 09/14/2019; Chest Single View dated 02/07/2019; Chest Angio dated 08/06/2022 FINDINGS: Lines: None. Lungs: Bilateral interstitial airspace disease, left greater than right. Findings are similar. Pleural: No significant pleural effusions or pneumothorax. Cardiac: The heart size is within normal limits. Mediastinum: Within normal limits. Bones: No acute fractures. Other: None IMPRESSION: Multifocal pneumonia without significant interval change compared with 08/06/2022.
[2022-08-09] MEDS: CEFTRIAXONE 1,000 MG in NA CHLORIDE 0.9% 50 ML IVPB SCH (09:00)
[2022-08-09] MEDS ORDERED: METFORMIN HCL PO SCH (09:00)
[2022-08-09] MEDS ORDERED: ASPIRIN EC 81 MG TAB PO SCH (09:00)
[2022-08-09] MEDS ORDERED: ASCORBIC ACID 500 MG TABLET PO SCH (09:00)
[2022-08-09] MEDS ORDERED: FUROSEMIDE 20 MG/ 2ML VIAL IV SCH (09:00)
[2022-08-09] MEDS ORDERED: VALSARTAN 160 MG TAB PO SCH (09:00)
[2022-08-09] MEDS ORDERED: EMPAGLIFLOZIN PO SCH (09:00)
[2022-08-09] MEDS: ENOXAPARIN 40 MG/0.4 ML SQ SCH (09:03)
[2022-08-09] MEDS: LEVOTHYROXINE SOD 0.1 MG TAB PO SCH (09:03)
[2022-08-09] MEDS: predniSONE 20 MG TAB PO SCH (09:04)
--- NOTE | 2022-08-09 09:25 | P.PN ---
Subjective Date of Service: 08/09/22 Chief Complaint: Bilateral pneumonia Subjective: Improving (And is improving doing much better oxygen requirements have declined denies any chest pain cough still has some shortness of breath) Review of Systems 10-point ROS is otherwise unremarkable Physical Examination - Vital Signs Temperature: 97.4 F Blood Pressure: 148/76 Pulse: 72 Respirations: 18 Pulse Ox (%): 96 - Physical Exam General: Alert, In no apparent distress, Oriented x3 Respiratory: Clear to auscultation bilaterally Cardiovascular: No edema, Regular rate/rhythm, Normal S1 S2 - Studies Medications List Reviewed: Yes Assessment And Plan - Current Problems (Diagnosis) (1) Pneumonia Current Visit: Yes Status: Acute Plan: Patient is 41 years of age admitted with bilateral pneumonia of unknown etiology cultures are all negative White count is normal doing a lot better plan to change to p.o. levofloxacin DC IV fluids a trial of Lasix charge home if he can set up with home O2 as vital signs all satisfactory plan to ambulate his room air sat dropped down to 87% try and qualify him for home O2 has chronic stable respiratory failure Qualifiers: Pneumonia type: due to unspecified organism Laterality: bilateral
[2022-08-09 09:42] VITALS: O2SAT 93
[2022-08-09] MEDS ORDERED: levoFLOXacin 750 MG TAB PO SCH (10:00)
[2022-08-09 12:27] VITALS: BP 130/71; TEMP 97.5
--- NOTE | 2022-08-09 15:58 | P.DS ---
Admission Date: 08/06/22 Discharge Date: 08/09/22 Disposition: ROUTINE DISCHARGE Discharge Condition: FAIR Reason for Admission: Bilateral pneumonia - Problems (1) Pneumonia Status: Acute Qualifiers: Pneumonia type: due to unspecified organism Laterality: bilateral Brief History of Present Illness: Patient is 41 years of age she got sick last day started having fever chills productive cough sided chest pain and up with severe community-acquired pneumonia he is hypoxic right now feeling better week Hospital Course: PT AW severe bilateral pneumonia- Required BIPAP. Condition stable. Cultures neg. DC on O2 and Levaquin Vital Signs/Physical Exam: Temp Pulse Resp BP Pulse Ox 97.5 F 71 16 130/71 90 L 08/09/22 12:00 08/09/22 12:00 08/09/22 12:00 08/09/22 12:00 08/09/22 12:00 Laboratory Data at Discharge: WBC 11.80 K/uL (4.3-10.9) H 08/09/22 05:39 Hgb 15.1 g/dL (13.6-17.9) 08/09/22 05:39 Hct 44.2 % (39.6-49.0) 08/09/22 05:39 Plt Count 193 K/uL (152-406) 08/09/22 05:39 PT 11.0 SECONDS (9.5-12.5) 08/06/22 17:45 INR 1.00 08/06/22 17:45 APTT 30.5 SECONDS (24.3-36.9) 08/06/22 17:45 Sodium 141 mmol/L (136-145) 08/09/22 05:34 Potassium 4.4 mmol/L (3.5-5.1) 08/09/22 05:34 BUN 25 mg/dL (7-18) H 08/09/22 05:34 Creatinine 0.86 mg/dL (0.70-1.30) 08/09/22 05:34 Glucose 146 mg/dL (74-106) H 08/09/22 05:34 Phosphorus 3.4 mg/dL (2.5-4.9) 08/09/22 05:34 Magnesium 1.8 mg/dL (1.6-2.4) 08/09/22 05:34 Total Bilirubin 0.6 mg/dL (0.2-1.0) 08/09/22 05:34 AST 52 U/L (15-37) H 08/09/22 05:34 ALT 25 U/L (16-61) 08/09/22 05:34 Alkaline Phosphatase 81 U/L (45-117) 08/09/22 05:34 Home Medications: Empagliflozin/Metformin HCl [Synjardy Xr 12.5-1,000 mg Tab] 1 tab PO DAILY 04/12/18 Irbesartan [Avapro*] 300 mg PO DAILY 04/12/18 Omeprazole [Prilosec] 40 mg PO DAILY 04/12/18 Rosuvastatin [Crestor*] 5 mg PO BEDTIME 04/12/18 Ascorbic Acid [Vitamin C] 500 mg PO DAILY 09/14/19 Ezetimibe [Zetia*] 10 mg PO BEDTIME 09/14/19 Aspirin [Lo-Dose Aspirin EC] 81 mg PO DAILY 11/29/21 Cholecalciferol (Vitamin D3) [Vitamin D3] 25,000 unit PO DIRECTED 11/29/21 Famotidine [Pepcid] 40 mg PO BEDTIME 11/29/21 Levothyroxine Sodium [Levoxyl] 100 mcg PO DAILY 11/29/21 Nebivolol HCl [Bystolic*] 10 mg PO BEDTIME 08/06/22 Tirzepatide [Mounjaro] 5 mg SQ EVERY 7TH DAY 08/06/22 levoFLOXacin [Levaquin*] 750 mg PO DAILY 7 Days #7 tab 08/09/22 New Medications: levoFLOXacin [Levaquin*] 750 mg PO DAILY 7 Days #7 tab Followup: Rajesh Burroughs MD [ACTIVE - CAN ADMIT] - Paul Herrmann MD [Primary Care Provider] -
[2022-08-15] MEDS ORDERED: VITAMIN D 5,000 UNIT CAP PO SCH (09:00)
[2022-08-15] MEDS ORDERED: TIRZEPATIDE 5 MG/0.5 ML SQ SCH (09:00)
== END 2022-08-09 15:51 | disposition home or self-care (01) | DRG 871 ==
LOC: ER 14:16 → ERHOLD 18:05 → 4TH 19:48
PROVIDERS: ADMIT Hospitalist; ATTEND Internal Medicine Sleep Medicine
PROC: 5A09357 Assistance with Respiratory Ventilation, Less than 24 Consecutive Hours, Continuous Positive Airway Pressure (ICD-10-PCS; principal; 2022-08-08)
DX: A41.9 Sepsis, unspecified organism (principal); J15.9 Unspecified bacterial pneumonia; J96.21 Acute and chronic respiratory failure with hypoxia; E87.1 Hypo-osmolality and hyponatremia; E03.9 Hypothyroidism, unspecified; E11.9 Type 2 diabetes mellitus without complications; Z79.4 Long term (current) use of insulin; I10 Essential (primary) hypertension; E78.5 Hyperlipidemia, unspecified; E66.9 Obesity, unspecified; Z68.35 Body mass index [BMI] 35.0-35.9, adult
CPT/HCPCS: 0240U; 36415; 71045; 71046; 71275; 80048; 80053; 81001; 82947; 83605; 83735; 83880; 84100; 84145; 85025; 85610; 85730; 87040; 93005; 94010; 94640; 96365; 96375; 99284; J0692; J1650; J1940; J2270; J2405; J2920; J3370; J7030; J7040; J7512; J7613; J7644; Q9967

== ENCOUNTER 2023-06-21 12:11 | Emergency (ER) | payer BC ==
--- OUTSIDE RECORDS SUMMARY | 2023-06-21 12:14 | XMS REPORT | Continuity of Care Document ---
:1980 Author Organization [facility] t Address [address] [facility] [address] [place] [address] Care Team Providers Name Role Phone Paul Herrmann Primary Care Physician Delmis Dillard MA Attending Clinician Unavailable Maria Elena Blunt MD Attending Clinician [phone] Darron Restrepo MD Attending Clinician Partha Sommers MA Attending Clinician Unavailable DAVE CRUZ Attending Clinician Unavailable Dave Cruz MD Attending Clinician Doctor Unassigned, [place] Attending Clinician Unavailable Joellen Phipps Attending Clinician Pob1, Acute Care [facility] Attending Clinician Unavailable Lorena Jarquin Attending Clinician LORENA CHAPMAN Attending Clinician Unavailable DR SHANIKA WAGNER Attending Clinician Unavailable DR SHANIKA WAGNER Admitting Clinician Unavailable Payers Payer Name Policy Type Policy Number Effective Date Expiration Date Slime MERRILL VERÓNICA [id number] 2021 CLAIM SVC 00:00:00 BCBS OS [id number] 2021 POS/PPO/EPO 00:00:00 Problems Condition Condition Condition Status Onset Resolution Last Treating Co mments Source Name Details Category Date Date Treatment Clinician Date Type 2 Type 2 Disease Active [place] diabetes diabetes 5-25 Health mellitus mellitus 00:00: 00 HTN HTN Disease Active [place] (hypertens (hypertens 9-04 He alth ion) ion) 00:00: 00 No known No known Disease Unive rs active active ity of problems problems [facility] Allergies, Adverse Reactions, Alerts Allergy Allergy Status Severity Reaction(s) Onset Inactive Treating Comm ents Source Name Type Date Date Clinician NO KNOWN Allergy Active [facility] NO KNOWN Drug Active [facility] Social History Social Habit Start Date Stop Date Quantity Comments Source Sexual orientation [facility] History of tobacco Current smoker [place] [facility] use Tobacco use and 2021-11-20 2021-11-20 Smokeless tobacco [place] [facility] exposure 00:00:00 00:00:00 non-user Sex Assigned At [birth year] [facility] 00:00:00 00:00:00 [facility] Smoking Status Start Date Stop Date Source Ex-smoker 2021-11-20 00:00:00 2021-11-20 00:00:00 [place] [facility] Unknown if ever smoked [facility] Medications Ordered Filled Start Stop Current Ordering [...] tablet 00 (one) time each day. Multiple Yes [place] Vitamin 4-13 Health (Multi 14:10: Vitamin) 52 tablet lisinopril Yes 40mg Take 40 mg U T 40 MG 4-13 by mouth. Health tablet 14:10: 52 omeprazole Yes 40mg Take 40 mg U T (PriLOSEC) 3-14 by mouth [address] Hea l[facility] [address] 00:00: (one) time capsule 00 each day before breakfast. 30 MINUTES BEFORE BREAKFAST hydrOXYzine 0 Yes TAKE 1 TO U T HCl 3-14 2 TABLETS Health (Atarax) 25 00:00: BY MOUTH MG tablet 00 EVERY NIGHT AT BEDTIME NEEDED Ozempic, 2021-0 Yes .5mg Inject 0.5 UT 0.25 or 0.5 3-09 mg under Heal th MG/DOSE, 2 00:00: the skin 1 MG/1.5ML 00 (one) time solution per week. pen-injecto r rosuvastati 0 Yes 5mg QD Take 5 mg U T n (Crestor) 3-08 by mouth 1 He alth 5 MG tablet 00:00: (one) time 00 each day. Decara 625 0 Yes 625ug Take 625 UT MCG (26655 3-08 mcg by [facility] UT) capsule 00:00: mouth 1 00 (one) time per week. fenofibrate 0 Yes 134mg Take 134 U T micronized 3-07 mg by [facility] (LOFIBRA) 00:00: mouth with 134 MG 00 snacks. capsule ezetimibe 0 Yes 10mg QD Take 10 mg UT (Zetia) 10 3-07 by mouth 1 Hea lth MG tablet 00:00: (one) time 00 each day. cyclobenzap Yes 10mg Q.25217105 Take 10 mg UT rine 1-26 [id number] by mouth 3 Hea lth (Flexeril) 00:00: 3D (three) 10 MG 00 times a tablet day if needed. Levoxyl 100 Yes 100ug Take 100 U T MCG tablet 1-19 mcg by Health 00:00: mouth 1 00 (one) time each day in the morning. on an empty stomach metoprolol 2020-08 Yes TAKE 1/2 UT succinate 1-24 TO 1 Health XL 00:00: TABLET BY (Toprol-XL) 00 MOUTH 25 MG 24 hr EVERY DAY tablet AT BEDTIME benzonatate 2019-0 2020- No [id number] 100mg Take 1 Univers (TESSALON 6-05 07-06 capsule by Yesika) 100 00:00: 04:59 mouth [place] capsule 00 :00 (three) Medica l times Branch daily as needed for Cough for up to 30 days. benzonatate 2020-0 2020- No [id number] 100mg Take 1 Univers (TESSALON 6-05 07-06 capsule by ity of [employer]) 100 00:00: 04:59 mouth [place] mg capsule 00 :00 (three) Medica l times Branch daily as needed for Cough for up to 30 days. benzonatate 2020-0 2020- No [id number] 100mg Take 1 Univers (TESSALON 6-05 07-06 capsule by ity of [employer]) 100 00:00: 04:59 mouth [place] [...] 16:15:00 136 mm[Hg] Univer sity of pressure [facility] Diastolic blood 2020-01-13 16:15:00 89 mm[Hg] [facility] Heart rate 2020-01-13 16:15:00 99 /min [facility] Body temperature 2020-01-13 16:15:00 37.33 Francia [facility] Respiratory rate 2020-01-13 16:15:00 20 /min [facility] Body height 2020-01-13 16:15:00 175.3 cm [facility] Body weight 2020-01-13 16:15:00 119.296 kg [facility] BMI 2020-01-13 16:15:00 38.84 kg/m2 [facility] Oxygen saturation in 2020-01-13 16:15:00 98 /min [facility] Arterial blood by [facility] Pulse oximetry Branch Systolic blood 2021-10-13 03:15:00 127 mm[Hg] [facility] Diastolic blood 2021-10-13 03:15:00 83 mm[Hg] [facility] Heart rate 2021-10-13 03:15:00 79 /min [facility] Body temperature 2021-10-13 03:15:00 36.72 Francia [facility] Respiratory rate 2021-10-13 03:15:00 20 /min [facility] Oxygen saturation in 2021-10-13 03:15:00 98 /min [facility] Arterial blood by Medical nter Pulse oximetry Body height 2021-10-12 18:35:00 172.7 cm [facility] Body weight 2021-10-12 18:35:00 109.77 kg [facility] BMI 2021-10-12 18:35:00 36.80 kg/m2 [facility] Procedures Procedure Date / Time Performing Clinician Source Performed CT CHEST FOR PULMONARY 2021-10-12 22:54:00 Dave Cruz [facility] EMBOLUS Center CBC W/PLT COUNT & AUTO 2021-10-12 21:04:00 Dave Cruz [facility] DIFFERENTIAL [place] CBC W/PLT COUNT & AUTO 2021-10-12 21:04:00 Dave Cruz [facility] DIFFERENTIAL [place] XR CHEST 2 VIEWS 2021-10-12 19:23:00 Dave Cruz [facility] B-TYPE NATRIURETIC 2021-10-12 19:16:00 Dave Cruz [facility] FACTOR (BNP) Center BASIC METABOLIC PANEL 2021-10-12 19:16:00 Dave Cruz [facility] PROTHROMBIN TIME/INR 2021-10-12 19:16:00 Dave Cruz [facility] HEPATIC FUNCTION PANEL 2021-10-12 19:16:00 Dave Cruz [facility] HIGH SENSITIVITY 2021-10-12 19:16:00 Dave Cruz [facility] I Center TSH/FREE T4 IF 2021-10-12 19:16:00 Dave Cruz [facility] INDICATED Center D-DIMER 2021-10-12 19:16:00 Dave Cruz [facility] ECG 12-LEAD 2021-10-12 18:35:39 Unknown, Hl7 Doctor [facility] EKG-SCANNED 2021-10-12 00:00:00 Provider, Winnie [facility] Medical Scanning Center DISABILITY/FMLA 2020-02-14 05:01:00 Doctor Unassigned, No [facility] Plan of Care Planned Activity Planned Date Details Comments Source Future Scheduled 2023-04-10 Influenza Vaccine (#1) [facility] 00:[facility]:00 [code = Influenza Vaccine Me dical Center (#1)] Future Scheduled 2022-08-[address] [facility] 00:00:00 (12+) [code = DEPRESSION Med ical Center SCREENING (12+)] Future Scheduled 2022-04-10 INFLUENZA VACCINE (#1) [facility] 00:00:00 [code = INFLUENZA VACCINE Me dical Center (#1)] Future Scheduled 2022-04-10 INFLUENZA VACCINE (#1) [facility] 00:00:00 [code = INFLUENZA VACCINE Me dical Center (#1)] Future Scheduled 2021-08-[address] [facility] Test 00:00:00 (12+) [code = DEPRESSION Med ical Center SCREENING (12+)] Future Scheduled 2021-08-[address] [facility] Test 00:00:00 (12+) [code = DEPRESSION Med ical Center SCREENING (12+)] Future Scheduled 2021-08-09 COVID-19 VACCINE (4 - [facility] 00:00:00 Moderna series) [code = Medi sonia Center COVID-19 VACCINE (4 - Moderna series)] Future Scheduled 2013 Lipid panel (procedure) [facility] 00:00:00 [code = 41368155] Medical Ce nter Future Scheduled 2013 Lipid panel (procedure) [facility] 00:00:00 [code = 52123794] Medical Ce nter Future Scheduled 2013 Lipid panel (procedure) [facility] 00:00:00 [code = 12501659] Medical Ce nter Future Scheduled 1997 DTAP/TDAP/TD VACCINES ([address] [facility] 00:00:00 - Tdap) [code = Medical Cent er DTAP/TDAP/TD VACCINES (1 - Tdap)] Future Scheduled 1997 DTAP/TDAP/TD VACCINES ([address] [facility] 00:00:00 - Tdap) [code = Medical Cent er DTAP/TDAP/TD VACCINES (1 - Tdap)] Future Scheduled 1997 DTAP/TDAP/TD VACCINES ([address] [facility] 00:00:00 - Tdap) [code = Medical Cent er DTAP/TDAP/TD VACCINES (1 - Tdap)] Future Scheduled [...] HEPATITIS C Medical Center SCREENING] Future Scheduled [address] [facility] 00:00:00 virus screening Medical Cent er (procedure) [code = 386373255] Future Scheduled [address] [facility] Test 00:00:00 Counseling and Screening Med ical Center (12+) [code = Tobacco Cessation Counseling and Screening (12+)] Future Scheduled [address] [facility] Test 00:00:00 Counseling and Screening Med ical Center (12+) [code = Tobacco Cessation Counseling and Screening (12+)] Encounters Start End Encounter Admission Attending Care Care Encounter Source Date/Time Date/Time Type Type Clinicians Facility Department ID 2023-03-23 Outpatient [facility] [id number] Common 12:38:00 [id number] [facility] 2023-03-18 Outpatient [facility] [id number] Common 19:02:00 [id number] [facility] 2022-06-20 Outpatient [facility] [id number] [place] 12:19:42 [id number] Health 2022-02-11 2022-02-11 Telephone Delmis Dillard UTP 6400 1.2.840 .114 [id number] [place] 00:00:00 00:00:[address] [id number] Health 9.2.7.2.686 [id number] 2022-02-06 2022-02-06 Telephone Maria Elena Blunt UTP 6400 1.2.840.114 [id number] [place] 00:00:00 00:00:[address] [id number] Health 9.2.7.2.686 [id number] 7 2022-01-13 2022-01-13 Telephone CHRYSTAL Restrepo [facility] [id number] [place] 00:00:00 00:00:00 Darron NASH [id number] [facility] 9.2.7.2.686 [address] [id number] 5 2022-01-01 2022-01-01 Office Maria Elena Blunt UTP 6400 1.2.840.114 1 [id number] [place] 08:30:00 08:45:[address] [id number] Health 9.2.7.2.686 [id number] 7 2021-12-26 2021-12-26 Telephone Maria Elena Blunt UTP 6400 1.2.840.114 [id number] [place] 00:00:00 00:00:[address] [id number] Health 9.2.7.2.686 [id number] 7 2021-12-24 2021-12-24 Telephone Maria Elena Blunt UTP 6400 1.2.840.114 [id number] [place] 00:00:00 00:00:[address] [id number] Health 9.2.7.2.686 [id number] 7 2021-12-03 2021-12-03 Telephone Delmis Dillard UTP 6400 1.2.840 .114 [id number] [place] 00:00:00 00:00:[address] [id number] Health 9.2.7.2.686 [id number] 2021-11-20 2021-11-20 Consult Maria Elena Blunt UTP 6400 1.2.840.114 1 [id number] [place] 11:30:00 12:00:[address] [id number] Health 9.2.7.2.686 [id number] 7 2021-11-20 2021-11-20 Telephone Jose RaulMaria Elena valle UTP 6400 1.2.840.114 [id number] [place] 00:00:00 00:00:[address] [id number] Health 9.2.7.2.686 [id number] 7 2021-11-15 2021-11-15 Telephone Partha Sommers UTP 6400 1.2.840.11 4 [id number] [place] 00:00:00 00:00:[address] [id number] Health 9.2.7.2.686 [id number] 7 2021-10-12 2021-10-13 Emergency ER ANTHONY [facility] Emergency [id number] [facility] 18:38:00 03:18:00 DAVE 2021-10-12 2021-10-13 Emergency ER Anthony [facility] [id number] [facility] 18:38:00 03:18:00 [facility] 2020-02-14 2020-02-14 Orders Doctor MARIA ELENA 1.2.840.114 [id number] 00:00:00 00:00:00 Only Unassigned, GERA 350.1.13.10 [facility] 4.2.7.2.686 [id number] 009 2020-02-14 2020-02-14 Orders Doctor MARIA ELENA 1.2.840.114 [id number] Univers 00:00:00 00:00:00 Only Unassigned, GERA 350.1.13.10 ity of [place] [facility] 4.2.7.2.686 Tj as [id number] [place] [address] Branch 2020-01-14 2020-01-14 Telephone [facility] 1.2.840.114 [id number] 00:00:00 00:00:00 [facility] 350.1.13.10 [place] 42.7.2.686 [facility] [id number] Primary & 370 Specialty Care 2020-01-14 2020-01-14 Telephone [facility] 1.2.840.114 [id number] Univers 00:00:00 00:00:00 [facility] 350.1.13.10 it y of [place] 4.2.7.2.686 [facility] [id number] [facility] Branch Specialty Care 2020-01-13 2020-01-13 Urgent Pob1, Acute Care Clinic [facility] 1. 2.840.114 [id number] Univers 10:59:51 12:29:22 Lorena Herring 350.1.13.10 ity [facility] 4.2.7.2.[address] [facility] [place] as Professio [id number] [address] Office Building One 2020-01-13 2020-01-13 Outpatient Aviva CHAPMAN [facility] [id number] Univers 11:00:00 11:00:00 LORENA morin of [facility] 2018-09-29 2018-09-29 Outpatient Helen WAGNER Helen SHOEMAKER 10 [id number] [facility] 05:[facility] 10:08:00 SHANIKA Patel l Center Results Test Description Test Time Test Comments Results Result [facility] e Comments CT, CHEST WITH IV 2021-10-12 41yom with CONTRAST- PE TEST 23:17:00 chest pain and DESIGN tachycardia, ddimer [facility] 08[facility] CENTERName: Reason for Exam VARINDER JC : - Click Yes and 1980 Sex: [...] Impression: No acute pulmonary embolism. Signed: [facility] Verified Date/Time: 10/12/2021 23:17:25 with platelet count [...] result as normal/abnormal. MPV (test code = 73634-4) 10.0 fL 9.4-12.4 nRBC (test code = [...] 2801) Lab Interpretation (test code Abnormal = 72602-4) [facility] with platelet count + automated [id number] 21:16:46 Test Item Value Reference Range Interpretation Comments WBC (test code = 6690-2) 16.3 See_Comment H [A utomated message] The system [employer] generated this result transmitted ref erence range: 3.5 - 10 .5 K/L. The refe rence range was not u sed to interpret this result as normal/abnor mal. RBC (test code = 789-8) 5.41 See_Comment [Au tomated message] The system [employer] generated this result transmitted ref erence range: 4.63 - 6 .08 M/L. The refe rence range was not u sed to interpret this result as normal/abnor mal. MCHC (test code = 786-4) 34.7 See_Comment [A utomated message] The system [employer] generated this result transmitted ref erence range: [...] See_Comment [Aut omated message] 777-3) The system [employer] generated this result transmitted ref erence range: 150 - 45 0 K/CU MM. The referen ce range was not u sed to interpret this result as normal/abnor mal. MPV (test code = 10.0 fL 9.4-12.4 57284-5) nRBC (test code = 413) 0 See_Comment [Aut omated message] The system [employer] generated this result transmitted ref erence range: [...] H [Aut omated message] 670) The system [employer] generated this result transmitted ref erence range: 1.78 - 5 .38 K/L. The refe rence range was not u sed to interpret this result as normal/abnor mal. # Lymphs (test code = 3.68 See_Comment H [Auto mated message] 414) The system [employer] generated this result transmitted ref erence range: 1.32 - 3 .57 K/L. The refe rence range was not u sed to interpret this result as normal/abnor mal. # Monos (test code = 1.27 See_Comment H [Autom ated message] 415) The system [employer] generated this result transmitted ref erence range: 0.30 - 0 .82 K/L. The refe rence range was not u sed to interpret this result as normal/abnor mal. # Eos (test code = 416) 0.05 See_Comment [Au tomated message] The system [employer] generated this result transmitted ref erence range: 0.04 - 0 .54 K/L. The refe rence range was not u sed to interpret this result as normal/abnor mal. # Baso (test code = 417) 0.08 See_Comment [A utomated message] The system [employer] generated this result transmitted ref erence range: 0.01 - 0 .08 K/L. The refe rence range was not u sed to interpret this result as normal/abnor mal. Immature 1 % 0-1 Granulocytes-Relative (test code = 2801) Lab Interpretation (test Abnormal code = 57347-2) [facility] W/PLT COUNT & AUTO [id number] 21:16:46 Test Item Value Reference Range Interpretation [...] (test code = 2801) RAD, CHEST, 2 [id number] 20:38:00Reason for exam:->CHEST PAIN [facility] CENTERName: VARINDER JC : 1980 Sex: MFINAL REPORT EXAM/TECHNIQUE: PA and lateral radiograph of the chest. INDICATION: Chest pain. COMPARISON: None. FINDINGS: Devices/Objects: None. Lungs: No focal consolidation. No pleural effusion. No pneumothorax. Heart/Mediastinum: No cardiomegaly. No interstitial thickening. Osseous: No ac cherokee osseous process. No suspicious osseous lesion. Upper abdomen: Unremarkable. Impression: No acutecardiopulmonary process. Signed: Allen Hauser MDReport Verified Date/Time: 10/12/2021 20:38:21 TSH/Free T4 If [id number] 20:03:14 Test Item Value Reference Range Interpretation Comments TSH (test code = 1.469 See_Comment [Automated 19247-6) message] The system which generated this result transmit pineda reference range : 0.350 - 4.940 uIU/mL. The reference range was not used to interpret this result as normal/abnormal . COLEEN (test code = COLEEN) Cook Relief ID - DENISSE Haynes Lab Interpretation Normal (test code = 49957-4) [facility] T4 If [id number] 20:03:14 Test Item Value Reference Range Interpretation Comments TSH (test code = 1.469 See_Comment [Automated 71558-2) message] The system which generated this result transmit pineda reference range : 0.350 - 4.940 uIU/mL. The reference range was not used to interpret this result as normal/abnormal . COLEEN (test code = COLEEN) Cook Relief ID - DENISSE Haynes Lab Interpretation Normal (test code = 11936-2) [facility] T4 IF [id number] 20:03:14 Test Item Value Reference Range Interpretation Comments THYROID STIMULATING HORMONE 1.469 uIU/mL 0.350-4.940 (BEAKER) (test code = 772) Cook Relief ID Shruthi SALCEDO igh Sens Trop I ([facility]/Nohemy Only)2021-10-12 19:48:53 Test Item Value Reference Range Interpretation Comments Troponin I HS (test 6 pg/ml See_Comment [Automa pineda code = 65756-1) message] The system which generated this result transmitted reference range : <=35. The reference range was not used to interpret this result as normal/abnormal . COLEEN (test code = Cook Relief ID - DENISSE HORNE) MThe DENTAL INTERN STAT High Sensitivity Troponin-I results should be used in conjunction with other diagnostic information such as ECG, clinical observations and information, and patient symptoms to aid in the diagnosis of AR. Lab Interpretation Normal (test code = 51493-9) [facility] ([facility]No[facility]my [facility])2021-10-12 19:48:53 Test Item Value Reference Range Interpretation Comments Troponin I HS (test 6 pg/ml See_Comment [Automa pineda code = 53014-0) message] The system which generated this result transmitted reference range : <=35. The reference range was not used to interpret this result as normal/abnormal . COLEEN (test code = Cook Relief ID - DENISSE HORNE) MThe DENTAL INTERN STAT High Sensitivity Troponin-I results should be used in conjunction with other diagnostic information such as ECG, clinical observations and information, and patient symptoms to aid in the diagnosis of AR. Lab Interpretation Normal (test code = 38946-1) [facility] TROPONIN [id number] 19:48:53 Test Item Value Reference Range Interpretation Comments HIGH SENSITIVITY 6 pg/ml See_Comment [Automated message] TROPONIN I (test code = The system which 3686702) generated this result transmitted ref erence range: <=35. Th e reference range was not used to interpr et this result as normal/abnormal . Cook Relief ID - DENISSE [facility] High Sensitivity Troponin-I results should be used in conjunction with other diagnostic information such as ECG, clinical observations and information, and patient symptoms to aid in the diagnosis of AR.B-type Natriuretic Factor (BNP)2021-10-12 19:48:30 Test Item Value Reference Range Interpretation Comments BNP (test code = 27772-5) 16 pg/mL 0-100 COLEEN (test code = COLEEN) Cook Relief ID - DENISSE M Lab Interpretation (test Normal code = 17266-6) [facility] (BNP)2021-10-12 19:48:30 Test Item Value Reference Range Interpretation Comments BNP (test code = 72241-1) 16 pg/mL 0-100 COLEEN (test code = COLEEN) Cook Relief ID - DENISSE M Lab Interpretation (test Normal code = 64785-4) [facility] Center[facility] NATRIURETIC FACTOR (BNP)2021-10-12 19:48:30 Test Item Value Reference Range Interpretation Comments B-TYPE NATRIURETIC PEPTIDE (BEAKER) 16 pg/mL 0-100 (test code = 700) Cook Relief ID - DENISSE MBasic Metabolic [id number] 19:44:59 Test Item Value Reference Range Interpretation Comments Sodium (test code = 137 meq/L 595-721 0775-2) Potassium (test code 3.5 meq/L 3.5-5.1 Specime n slightly = 2823-3) hemolyzed Chloride (test code = 102 meq/L 98-107 5-0) CO2 (test code = 23 meq/L 22-29 2027-9) BUN (test code = 16 mg/dL 7-21 3094-0) Creatinine (test code 1.20 mg/dL 0.57-1.25 Specim en slightly = 2160-0) hemolyzed Glucose (test code = 164 mg/dL 70-105 H 2345-7) Calcium (test code = 10.7 mg/dL 8.4-10.2 H 09209-3) EGFR (test code = [place] [address]-3) CLINICAL DATA T O CALCULATE ESTIMATED GFR. COLEEN (test code = COLEEN) Cook Relief ID - DENISSE M Lab Interpretation Abnormal (test code = 92054-8) [facility] Metabolic [id number] 19:44:59 Test Item Value Reference Range Interpretation Comments Sodium (test code = 137 meq/L 084-635 2992-2) Potassium (test code 3.5 meq/L 3.5-5.1 Specime n slightly = 2823-3) hemolyzed Chloride (test code = 102 meq/L 98-107 5-0) CO2 (test code = 23 meq/L 22-29 8-9) BUN (test code = 16 mg/dL 7-21 3094-0) Creatinine (test code 1.20 mg/dL 0.57-1.25 Specim en slightly = 2160-0) hemolyzed Glucose (test code = 164 mg/dL 70-105 H 2345-7) Calcium (test code = 10.7 mg/dL 8.4-10.2 H 08670-3) EGFR (test code = [place] [address]-2) CLINICAL DATA T O CALCULATE ESTIMATED GFR. COLEEN (test code = COLEEN) Cook Relief ID - DENISSE M Lab Interpretation Abnormal (test code = 43061-6) [facility] METABOLIC [id number] 19:44:59 Test Item Value Reference Range Interpretation [...] 1092) DATA TO CALCULA TE ESTIMATED GFR. Cook Relief ID - DENISSE Estes [id number] 19:42:51 Test Item Value Reference Range Interpretation Comments Protein, Total (test 8.1 See_Comment Specime n slightly code = 2885-2) hemolyzed [Automated message] The system which generated this result transmit pineda reference range : 6.0 - 8.3 gm/dL . The reference range was not u sed to interpret th is result as normal/abnormal . Albumin (test code = 4.1 g/dL 3.5-5.0 Specime n slightly 45244-5) hemolyzed Total Bilirubin (test 0.9 mg/dL 0.2-1.2 Specim en slightly code = 1975-2) hemolyzed Bilirubin, Direct 0.4 mg/dL 0.1-0.5 Specimen s lightly (test code = 1967-7) hemolyz ed Alkaline Phosphatase 145 U/L 40-150 (test code = 6768-6) AST (test code = 46 U/L 5-34 H Specimen sl ightly 1920-8) hemolyzed ALT (test code = 98 U/L 6-55 H Specimen sl ightly 1742-6) hemolyzed COLEEN (test code = COLEEN) Cook Relief ID - DENISSE [facility] Lab Interpretation Abnormal (test code = 16178-8) [facility] [id number] 19:42:51 Test Item Value Reference Range Interpretation Comments Protein, Total (test 8.1 See_Comment Specime n slightly code = 2885-2) hemolyzed [Automated message] The system which generated this result transmit pineda reference range : 6.0 - 8.3 gm/dL . The reference range was not u sed to interpret th is result as normal/abnormal . Albumin (test code = 4.1 g/dL 3.5-5.0 Specime n slightly 97044-2) hemolyzed Total Bilirubin (test 0.9 mg/dL 0.2-1.2 Specim en slightly code = 1974-) hemolyzed Bilirubin, Direct 0.4 mg/dL 0.1-0.5 Specimen s lightly (test code = 1968-7) hemolyz ed Alkaline Phosphatase 145 U/L 40-150 (test code = 6768-6) AST (test code = 46 U/L 5-34 H Specimen sl ightly 1920-8) hemolyzed ALT (test code = 98 U/L 6-55 H Specimen sl ightly 1742-6) hemolyzed COLEEN (test code = COLEEN) Cook Relief ID - DENISSE M Lab Interpretation Abnormal (test code = 86768-5) [facility] [id number] 19:42:51 Test Item Value Reference Range Interpretation [...] Specimen slightly (test code = 347) hemolyzed Cook Relief CHELO SALCEDO [id number] 19:41:30 Test Item Value Reference Range Interpretation Comments D-Dimer, Quant (test 0.80 See_Comment H [Autom ated code = 87795-2) message] The system which generated this result [...] range. Lab Interpretation Abnormal (test code = 67359-8) [facility]-[id number] 19:41:30 Test Item Value Reference Range Interpretation Comments D-Dimer, Quant (test 0.80 See_Comment H [Autom ated code = 78250-8) message] The system which generated this result [...] range. Lab Interpretation Abnormal (test code = 68009-2) [facility]-[id number] 19:41:30 Test Item Value Reference Range Interpretation [...] of thrombosis is within 95-100% range. Prothrombin time/[id number] 19:38:54 Test Item Value Reference Interpretation Comments [...] valves. Lab Interpretation Normal (test code = 64174-1) [facility]/[id number] 19:38:54 Test Item Value Reference Interpretation Comments Range Protime (test code = 14.1 See_Comment [Autom ated 5902-2) message] The system which generated this result transmitted reference range : 11.9 - 14.2 seconds. The reference range was not used to interpret this result as normal/abnormal . INR (test code = 1.11 See_Comment [Automated 3571-6) message] The system which generated this result [...] valves. Lab Interpretation Normal (test code = 17970-9) [facility]/[id number] 19:38:54 Test Item Value Reference Range Interpretation Comments PROTIME (BEAKER) 14.1 seconds 11.9-14.2 (test code = 759) INR (BEAKER) (test 1.11 See_Comment [Automat ed message] code = 370) The system [employer] generated this result transmitted ref erence range: [...] mg/dL 70-100 KIMMY CHAPMAN METERMeter ID: GMG) [id number] tor: [id number] CARMELA RAM
--- NOTE | 2023-06-21 13:17 | RAD REPORT ---
EXAM DESCRIPTION: USExtremity Venous Uni Ltd06/21/2023 12:51 pm CLINICAL HISTORY: left leg swelling COMPARISON: 2017 FINDINGS: Left common femoral, superficial femoral, popliteal and posterior tibial veins are compre ssible and demonstrate augmentation. Doppler demonstrates good flow. Acute thrombus is present within the mid and distal left greater saphenous vein Grayscale, color and spectral analysis performed on all vessels IMPRESSION: No evidence of deep venous thrombosis involving the deep veins of left lower extremity. Acute thrombus left greater saphenous vein
--- NOTE | 2023-06-21 13:30 | EDPHYS ---
Physician Documentation [facility] Name: Drew Jc Age: 42 yrs Sex: Male : 1980 Arrival Date: 06/21/2023 Time: 12:11 Bed 6 Private MD: ED Physician Akin Elam HPI: 06/21 12:14 This 42 yrs old Male presents to ER via Unassigned with complaints of leg ec2 swelling. 12:14 Patient arrives today for evaluation of left lower extremity swelling. States that he ec2 had noted some erythema to the inner thigh and subsequently noted some swelling to the left lower extremity. Patient reports no history of DVT, denies any history of PEs. Patient reports history of hypertension and well-controlled diabetes. Patient reports maybe some subjective fevers and chills.. Historical: - Allergies: 12:18 No Known Allergies; ll1 - PMHx: 12:18 Diabetes - NIDDM; Hypertension; Hypothyroidism; Pancreatitis; ll1 - PSHx: 12:18 Appendectomy; Cholecystectomy; meniscus repair; R ankle SX; Tonsillectomy; ll1 - Immunization history:: Adult Immunizations up to date. - Social history:: Smoking status: Patient denies any tobacco usage or history of. ROS: 12:14 Constitutional: as per hpi ec2 Exam: 12:14 Constitutional: GEN: NAD Head: atraumatic Eyes: EOMI Ears: External ears are ec2 normal. CV: regular rate, left lower extremity with 1+ pitting edema, left lower extremity greater than right. LUNGS: no respiratory distress ABD: non-distended SKIN: Left distal inner thigh with erythema and warmth, no crepitus, no fluctuance noted MSK: no evidence of trauma NEURO: moves all extremities equally Vital Signs: 12:18 BP 143 / 72; Pulse 76; Resp 16; Temp 97.6; Pulse Ox 100% ; Weight 83.01 kg; Height 5 ll1 ft. 9 in. ; Pain 5/10; 12:18 Body Mass Index 27.02 (83.01 kg, 175.26 cm) ll1 12:18 Pain Scale: Adult ll1 MDM: 12:12 Patient medically screened. ec2 12:14 ED course: Patient arrives today for evaluation of left lower extremity swelling and ec2 redness. Examination remarkable for skin and cardiovascular findings noted above. Will obtain ultrasound and reassess patient. Currently considering cellulitis, DVT, low suspicion for arterial disease.. 13:28 Data reviewed: vital signs. ED course: Ultrasound is negative for DVT however does have ec2 a superficial blood clot. I will start the patient antibiotics as the patient has a surrounding cellulitis and have him follow-up with his primary care doctor for reevaluation of the leg. I discussed signs symptoms as well as precautions and monitoring for extension of the clot.. 06/21 12:14 Order name: Extremity Venous [facility] US; Complete Time: 13:23 ec2 Administered Medications: No medications were administered Disposition Summary: 06/21/23 13:29 Discharge Ordered Notes: Location: Home ec2 Condition: Stable ec2 Diagnosis - Phlebitis and thrombophlebitis of superficial vessels of left lower extremity ec2 - Cellulitis of left lower limb ec2 Discharge Instructions: - Discharge Summary Sheet ec2 - Cellulitis, Adult ec2 - Thrombophlebitis ec2 Forms: - Work release form eb - Medication Reconciliation Form ec2 - Thank You Letter ec2 - Antibiotic Education ec2 - Prescription Opioid Use ec2 - Patient Portal Instructions ec2 - Leadership Thank You Letter ec2 Prescriptions: - Cephalexin 500 mg Oral capsule - take 1 capsule ORAL route every 6 hours for 7 days; 28 capsule; Refills: 0, ec2 Product Selection Permitted Signatures: Dispatcher [employer] Joelle Mueller RN RN ll1 Akin Elam MD MD ec2 Corrections: (The following items were deleted from the chart) 12:29 12:28 Patient medically screened. ec2 ec2
--- NOTE | 2023-06-21 13:30 | ER ---
Nurse's Notes [facility] Name: Drew Jc Age: 42 yrs Sex: Male : 1980 Arrival Date: 06/21/2023 Time: 12:11 Bed 6 Private MD: Diagnosis: Phlebitis and thrombophlebitis of superficial vessels of left lower extremity;Cellulitis of left lower limb Presentation: 06/21 12:18 Chief complaint: Patient states: L leg pain for 2 weeks. Redness to thigh area. ll1 Coronavirus screen: Client denies travel out of the [place] in the last 14 days. At this time, the client does not indicate any symptoms associated with coronavirus-19. Ebola Screen: Patient denies travel to an Ebola-affected area in the 21 days before illness onset. Initial Sepsis Screen: Does the patient meet any 2 criteria? No. Patient's initial sepsis screen is negative. Does the patient have a suspected source of infection? No. Patient's initial sepsis screen is negative. Risk Assessment: Do you want to hurt yourself or someone else? Patient reports no desire to harm self or others. Onset of symptoms was June 08, 2023. 12:18 Method Of Arrival: Ambulatory ll1 12:18 Acuity: COCO 3 ll1 Historical: - Allergies: 12:18 No Known Allergies; ll1 - PMHx: 12:18 Diabetes - NIDDM; Hypertension; Hypothyroidism; Pancreatitis; ll1 - PSHx: 12:18 Appendectomy; Cholecystectomy; meniscus repair; R ankle SX; Tonsillectomy; ll1 - Immunization history:: Adult Immunizations up to date. - Social history:: Smoking status: Patient denies any tobacco usage or history of. Vital Signs: 12:18 BP 143 / 72; Pulse 76; Resp 16; Temp 97.6; Pulse Ox 100% ; Weight 83.01 kg; Height 5 ll1 ft. 9 in. ; Pain 5/10; 12:18 Body Mass Index 27.02 (83.01 kg, 175.26 cm) ll1 12:18 Pain Scale: Adult ll1 ED Course: 12:13 Patient arrived in ED. ll1 12:13 Akin Elam MD is Attending Physician. ec2 12:18 Arm band placed on Patient placed in an exam room, on a stretcher. ll1 12:20 Triage completed. ll1 12:53 Extremity Venous Uni Ltd US In Process Unspecified. EDMS Administered Medications: No medications were administered Outcome: 13:29 Discharge ordered by . ec2 13:41 Patient left the ED. 1 Signatures: Dispatcher [employer] EDJoelle Holley, RN RN 1 Akin Elam MD MD ec2
[2023-06-21 13:46] VITALS: BP 143/72; TEMP 97.6; O2SAT 100
== END 2023-06-21 13:41 | disposition home or self-care (01) ==
LOC: ER 12:11
DX: I80.02 Phlebitis and thrombophlebitis of superficial vessels of left lower extremity (principal); L03.116 Cellulitis of left lower limb
CPT/HCPCS: 93971; 99281

== ENCOUNTER 2023-07-06 21:04 | Emergency (ER) | payer BC ==
--- OUTSIDE RECORDS SUMMARY | 2023-07-06 21:08 | XMS REPORT | Continuity of Care Document ---
:1980 Author Organization [facility] t Address [address] [facility] [address] [place] [address] Care Team Providers Name Role Phone Paul Herrmann Primary Care Physician Delmis Dillard MA Attending Clinician Unavailable Jose Raul STEARNS, Maria Elena Jones Attending Clinician [phone] Darron Restrepo MD Attending Clinician Partha Sommers MA Attending Clinician Unavailable Dave Cruz MD Attending Clinician DAVE CRUZ Attending Clinician Unavailable Doctor Unassigned, [place] Attending Clinician Unavailable Joellen Phipps Attending Clinician [facility] Attending Clinician Unavailable Lorena Jarquin Attending Clinician LORENA CHAPMAN Attending Clinician Unavailable DR SHANIKA WAGNER Attending Clinician Unavailable DR SHANIKA WAGNER Admitting Clinician Unavailable Payers Payer Name Policy Type Policy Number Effective Date Expiration Date Slime MERRILL VERÓNICA [id number] 2021 CLAIM SVC 00:00:00 Problems Condition Condition [...] rs active active ity of problems problems [facility] Allergies, Adverse Reactions, Alerts Allergy Allergy Status Severity Reaction(s) Onset Inactive Treating Comm ents Source Name Type Date Date Clinician NO KNOWN Allergy Active [facility] NO KNOWN Drug [facility] Social History Social Habit Start Date Stop Date Quantity Comments Source Sexual orientation [facility] History of tobacco Current smoker [facility] use Tobacco use and 2021-11-20 2021-11-20 Smokeless tobacco [facility] exposure 00:00:00 00:00:00 non-user Sex Assigned At [birth year] [facility] 00:00:00 00:00:00 [facility] Smoking Status Start Date Stop Date Source Ex-smoker 2021-11-20 00:00:00 2021-11-20 [facility] Medications Ordered Filled Start Stop Current Ordering Indication Dosage Frequency Signature Comments Components Source Medication Medication Date Date Medication? Clinician (SIG) Name Name Veena XR Yes 2{tbl} QD Take 2 UT [...] 00 EVERY NIGHT AT BEDTIME NEEDED Ozempic, Yes .5mg Inject 0.5 UT 0.25 or 0.5 3-09 mg under Heal th MG/DOSE, 2 00:00: the skin 1 MG/1.5ML 00 (one) time solution per week. pen-injecto r rosuvastati Yes 5mg QD Take 5 mg U T n (Crestor) 3-08 by mouth 1 He alth 5 MG tablet 00:00: (one) time 00 each day. Decara 625 0 Yes 625ug Take 625 UT MCG (18356 3-[address] [facility]) capsule 00:00: mouth 1 00 (one) time per week. fenofibrate 0 Yes 134mg Take 134 U T micronized 3-07 mg by [facility] (LOFIBRA) 00:00: mouth with 134 MG 00 snacks. capsule ezetimibe Yes 10mg QD Take 10 mg UT (Zetia) 10 3-07 by mouth 1 Hea lth MG tablet 00:00: (one) time 00 each day. cyclobenzap Yes 10mg Q.[id number] Take 10 mg UT rine 1-26 [id number] by mouth 3 Hea lth (Flexeril) 00:00: 3D (three) 10 MG 00 times a tablet day if needed. Levoxyl 100 Yes 100ug Take 100 U T MCG tablet 1-19 mcg by [facility] 00:00: mouth 1 00 (one) time each day in the morning. on an empty stomach metoprolol 2020-08 Yes TAKE 1/2 UT succinate 1-24 TO 1 Health XL 00:00: TABLET BY (Toprol-XL) 00 MOUTH 25 MG 24 hr EVERY DAY tablet AT BEDTIME benzonatate 2020- No [id number] 100mg Take 1 Univers (TESSALON 01-1206 capsule by Yesika) 100 00:00: 04:59 mouth [place] capsule 00 :00 (three) Medica l times Branch daily as needed for Cough for up to 30 days. benzonatate 2020- No [id number] 100mg Take 1 [facility] (TESSALON 6-05 07-06 capsule by ity of [employer]) 100 00:00: 04:59 mouth 3 [place] capsule 00 :00 (three) Medica l times Branch daily as needed for Cough for up to 30 days. benzonatate 2019-0 2020- No [id number] 100mg Take 1 Univers (TESSALON 6-05 07-06 capsule by ity of [employer]) 100 00:00: 04:59 mouth 3 [place] [...] 172.7 cm WEIGHT 2021-10-12 18:35:00 109.77 kg Respiratory rate 2020-01-13 16:15:00 20 /min [facility] Body height 2020-01-13 16:15:00 175.3 cm [facility] Body weight 2020-01-13 16:15:00 119.296 kg [facility] BMI 2020-01-13 16:15:00 38.84 kg/m2 [facility] Oxygen saturation in 2020-01-13 16:15:00 98 /min [facility] Arterial blood by [facility] Pulse oximetry Branch Systolic blood 2020-01-13 16:15:00 136 mm[Hg] [facility] sity of pressure [facility] Diastolic blood 2020-01-13 16:15:00 89 mm[Hg] Unive rsity of pressure [facility] Heart rate 2020-01-13 16:15:00 99 /min [facility] Body temperature 2020-01-13 16:15:00 37.33 Francia [facility] Systolic blood 2021-10-13 03:15:00 127 mm[Hg] [facility] Diastolic blood 2021-10-13 03:15:00 83 mm[Hg] [facility] Heart rate 2021-10-13 03:15:00 79 /min [facility] Body temperature 2021-10-13 03:15:00 36.72 Francia [facility] Respiratory rate 2021-10-13 03:15:00 20 /min [facility] Oxygen saturation in 2021-10-13 03:15:00 98 /min [facility] Arterial blood by Medical Ce nter Pulse oximetry Body height 2021-10-12 18:35:00 172.7 cm [facility] Body weight 2021-10-12 18:35:00 109.77 kg [facility] BMI 2021-10-12 18:35:00 36.80 kg/m2 [facility] Procedures Procedure Date / Time Performing Clinician Source Performed CT CHEST FOR PULMONARY 2021-10-12 22:54:00 Dave Cruz [facility] EMBOLUS Center CBC W/PLT COUNT & AUTO 2021-10-12 21:04:00 Dave Cruz [facility] DIFFERENTIAL [place] CBC W/PLT COUNT & AUTO 2021-10-12 21:04:00 Dave Cruz [facility] XR CHEST 2 VIEWS 2021-10-12 19:23:00 Dave Cruz [facility] B-TYPE NATRIURETIC 2021-10-12 19:16:00 Dave Cruz [facility] (BNP) [place] BASIC METABOLIC PANEL 2021-10-12 19:16:00 Dave Cruz [facility] PROTHROMBIN TIME/INR 2021-10-12 19:16:00 Dave Cruz [facility] HEPATIC FUNCTION PANEL 2021-10-12 19:16:00 Dave Cruz [facility] HIGH SENSITIVITY 2021-10-12 19:16:[address] [facility] TROPONIN I Center TSH/FREE T4 IF 2021-10-12 19:16:00 Dave Cruz [facility] INDICATED Center D-DIMER 2021-10-12 19:16:00 Dave Cruz [facility] ECG 12-LEAD 2021-10-12 18:35:39 Unknown, Hl7 Doctor [facility] EKG-SCANNED 2021-10-12 00:00:00 Provider, [facility] DISABILITY/FMLA 2020-02-14 05:01:00 Doctor Unassigned, Ginger [facility] Plan of Care Planned Activity Planned Date Details Comments Source Future Scheduled 2023-04-10 Influenza Vaccine (#1) [facility] 00:00:00 [code = Influenza Vaccine Me dical Center (#1)] Future Scheduled 2023-04-10 Influenza Vaccine (#1) [facility] 00:00:00 [code = Influenza Vaccine Me dical Center (#1)] Future Scheduled 2022-08-[address] [facility] Test 00:00:00 (12+) [code = DEPRESSION Med ical Center SCREENING (12+)] Future Scheduled 2022-08-[address] [facility] Test 00:00:00 (12+) [code = DEPRESSION Med [facility] Center SCREENING (12+)] Future Scheduled 2021-08-09 COVID-19 VACCINE (4 - [facility] 00:00[facility]00 Moderna series) [code = [facility] Center COVID-19 VACCINE (4 - Moderna series)] Future Scheduled 2021-08-09 COVID-19 VACCINE (4 - [facility] 00:00:00 Moderna series) [code = [facility] COVID-19 VACCINE (4 - Moderna series)] Future Scheduled 2013 Lipid panel (procedure) [facility] Test 00:00:00 [code = 87369008] Medical Ce nter Future Scheduled 2013 Lipid panel (procedure) [facility] Test 00:00:00 [code = 08374181] Medical Ce nter Future Scheduled 2013 Lipid panel (procedure) [facility] Test 00:00:00 [code = 19556713] Medical Ce nter Future Scheduled 2013 Lipid panel (procedure) [facility] Test 00:00:00 [code = 82085298] Medical Ce nter Future Scheduled 1997 DTAP/TDAP/TD [...] screening Medical Cent er (procedure) [code = 469505955] Future Scheduled [address] Human immunodeficiency [facility] Test 00:00:00 virus screening Medical Cent er (procedure) [code = 196027946] Future Scheduled [address] [...] Type Clinicians Facility Department ID 2023-03-23 Outpatient [facility] [id number] Common 12:38:00 [id number] [facility] 2023-03-18 Outpatient [facility] [id number] Common 19:02:00 [id number] [facility] 2022-06-20 Outpatient [facility] [id number] [place] 12:19:42 [id number] Health 2022-02-11 2022-02-11 Telephone Delmis Dillard UTP 6400 1.2.840 .114 [id number] [place] 00:00:00 00:00:[address] [id number] Health 9.2.7.2.686 [id number] 0 2022-02-06 2022-02-06 Telephone Maria Elena Blunt UTP 6400 1.2.840.114 [id number] [place] 00:00:00 00:00:[address] [id number] Health 9.2.7.2.686 [id number] 7 2022-01-13 2022-01-13 Telephone Lauro [facility]AL [facility] [id number] [place] 00:00:00 00:00:00 Darron NASH 350.1.13.58 He alth MEDICAL 9.2.7.2.686 PLAZA 2 [id number] 5 2022-01-01 2022-01-01 Office Jose RaulMaria Elena UTP 6400 1.2.840.114 1 [id number] [place] 08:30:00 08:45:[address] [id number] Health 9.2.7.2.686 [id number] 2021-12-26 2021-12-26 Telephone Jose RaulMaria Elena UTP 6400 1.2.840.114 [id number] [place] 00:00:00 00:00:[address] 350.1.13.58 Health 9.2.7.2.686 [id number] 7 2021-12-24 2021-12-24 Telephone Jose RaulMaria Elena valle UTP 6400 1.2.840.114 [id number] [place] 00:00:00 00:00:[address] 350.1.13.58 Health 9.2.7.2.686 [id number] 7 2021-12-03 2021-12-03 Telephone Delmis Dillard UTP 6400 1.2.840 .114 [id number] [place] 00:00:00 00:00:[address] 350.1.13.58 Health 9.2.7.2.686 [id number] 2021-11-20 2021-11-20 Consult Jose RaulMaria Elena valle UTP 6400 1.2.840.114 1 [id number] [place] 11:30:00 12:00:[address] 350.1.13.58 Health 9.2.7.2.686 [id number] 2021-11-20 2021-11-20 Telephone Maria Elena Blunt UTP 6400 1.2.840.114 [id number] [place] 00:00:00 00:00:[address] 350.1.13.58 Health 9.2.7.2.686 [id number] 7 2021-11-15 2021-11-15 Telephone Partha Sommers UTP 6400 1.2.840.11 4 [id number] [place] 00:00:00 00:00:[address] 350.1.13.58 Health 9.2.7.2.686 [id number] 7 2021-10-12 2021-10-[address] [facility] [id number] [facility] 18:38:00 03:18:00 [facility] 2021-10-12 2021-10-13 Emergency ER [facility] Emergency [id number] [facility] 18:38:00 03:18:00 DAVE 2020-02-14 2020-02-14 Orders Doctor MARIA ELENA 1.2.840.114 [id number] 00:00:00 00:00:00 Only Unassigned, GERA 350.1.13.10 [place] [facility] 4.2.7.2.686 [id number] 009 2020-02-14 2020-02-14 Orders Doctor MARIA ELENA 1.2.840.114 [id number] [facility] 00:00:00 00:00:00 Only Unassigned, GERA 350.1.13.10 ity of [place] [facility] 4.2.7.2.686 Tj as [id number] [address] 2020-01-14 2020-01-14 [facility] 1.2.840.114 [id number] 00:00:00 00:00:00 [employer] 350.1.13.10 [place] 4.2.7.2.686 [facility] [id number] Primary & 370 Specialty Care 2020-01-14 2020-01-14 [facility] 1.2.840.114 [id number] [facility] 00:00:00 00:00:00 [employer] HEALTH 350.1.13.10 it y of [place] 4.2.7.2.686 Dasha solo [facility] [id number] [facility] Primary & 370 Branch Specialty Care 2020-01-13 2020-01-13 Urgent Pob1, Acute Care Clinic RUST 1. 2.840.114 [id number] Univers 10:59:51 12:29:22 Lorena Herring [facility] 350.1.13.10 ity [facility] 4.2.7.2.686 Tj as [facility] [id number] Ny dical nal 0[address] Branch Office [address] One 2020-01-13 2020-01-13 Outpatient R ADELA ADENA [facility] [id number] Univers 11:00:00 11:00:00 LORENA morin [facility] 2018-09-29 2018-09-29 Outpatient Helen WAGNER [facility] NAVID 10 [id number] [facility] 05:51:00 10:08:00 SHANIKA Mejiaa Center Results Test Description Test Time Test Comments Results Result [facility] e Comments CT, CHEST WITH IV 2021-10-12 41yom with CONTRAST- PE TEST 23:17:00 chest pain and DESIGN tachycardia, ddimer [place] [address] Reason for Exam VARINDER JC : [...] result as normal/abnormal. MPV (test code = 24900-9) 10.0 fL 9.4-12.4 nRBC (test code = [...] 2801) Lab Interpretation (test code Abnormal = 82894-1) [facility] with platelet count + automated [id number] 21:16:46 Test Item Value Reference Range Interpretation Comments WBC (test code = 6690-2) 16.3 See_Comment H [A utomated message] The system [employer] generated this result transmitted ref erence range: 3.5 - 10 .5 K/L. The refe rence range was not u sed to interpret this result as normal/abnor mal. RBC (test code = 789-8) 5.41 See_Comment [Au tomated message] The system [employer] generated this result transmitted ref erence range: 4.63 - 6 .08 M/L. The refe rence range was not u sed to interpret this result as normal/abnor mal. MCHC (test code = 786-4) 34.7 See_Comment [A utomated message] The system [employer] generated this result transmitted ref erence range: [...] See_Comment [Aut omated message] 777-3) The system [employer] generated this result transmitted ref erence range: 150 - 45 0 K/CU MM. The referen ce range was not u sed to interpret this result as normal/abnor mal. MPV (test code = 10.0 fL 9.4-12.4 16981-2) nRBC (test code = 413) 0 See_Comment [Aut omated message] The system [employer] generated this result transmitted ref erence range: [...] H [Aut omated message] 670) The system [employer] generated this result transmitted ref erence range: 1.78 - 5 .38 K/L. The refe rence range was not u sed to interpret this result as normal/abnor mal. # Lymphs (test code = 3.68 See_Comment H [Auto mated message] 414) The system [employer] generated this result transmitted ref erence range: 1.32 - 3 .57 K/L. The refe rence range was not u sed to interpret this result as normal/abnor mal. # Monos (test code = 1.27 See_Comment H [Autom ated message] 415) The system [employer] generated this result transmitted ref erence range: 0.30 - 0 .82 K/L. The refe rence range was not u sed to interpret this result as normal/abnor mal. # Eos (test code = 416) 0.05 See_Comment [Au tomated message] The system [employer] generated this result transmitted ref erence range: 0.04 - 0 .54 K/L. The refe rence range was not u sed to interpret this result as normal/abnor mal. # Baso (test code = 417) 0.08 See_Comment [A utomated message] The system [employer] generated this result transmitted ref erence range: 0.01 - 0 .08 K/L. The refe rence range was not u sed to interpret this result as normal/abnor mal. Immature 1 % 0-1 Granulocytes-Relative (test code = 2801) Lab Interpretation (test Abnormal code = 36038-2) [facility] W/PLT COUNT & AUTO [id number] 21:16:46 Test Item Value Reference Range Interpretation [...] (test code = 2801) RAD, CHEST, 2 [id number] 20:38:00Reason for exam:->CHEST PAIN [facility] : 1980 Sex: MFINAL REPORT EXAM/TECHNIQUE: PA and lateral radiograph of the chest. INDICATION: Chest pain. COMPARISON: None. FINDINGS: Devices/Objects: None. Lungs: No focal consolidation. No pleural effusion. No pneumothorax. Heart/Mediastinum: No cardiomegaly. No interstitial thickening. Osseous: No ac ashtyn osseous process. No suspicious osseous lesion. Upper abdomen: Unremarkable. Impression: No acutecardiopulmonary process. Signed: Allen Hauser MDRepgrace Verified Date/Time: 10/12/2021 20:38:21 TSH/Free T4 If [id number] 20:03:14 Test Item Value Reference Range Interpretation Comments TSH (test code = 1.469 See_Comment [Automated 16137-7) message] The system which generated this result transmit pineda reference range : 0.350 - 4.940 uIU/mL. The reference range was not used to interpret this result as normal/abnormal . COLEEN (test code = COLEEN) Embossing Machine Operator Helper ID - DENISSE M Lab Interpretation Normal (test code = 48748-6) [facility] T4 If [id number] 20:03:14 Test Item Value Reference Range Interpretation Comments TSH (test code = 1.469 See_Comment [Automated 77489-0) message] The system which generated this result transmit pineda reference range : 0.350 - 4.940 uIU/mL. The reference range was not used to interpret this result as normal/abnormal . COLEEN (test code = COLEEN) Embossing Machine Operator Helper ID - DENISSE M Lab Interpretation Normal (test code = 32038-3) [facility] T4 IF [id number] 20:03:14 Test Item Value Reference Range Interpretation Comments THYROID STIMULATING HORMONE 1.469 uIU/mL 0.350-4.940 (BEAKER) (test code = 772) Embossing Machine Operator Helper ID - DENISSE SYKESigh Sens Trop I ([facility]Nohemy [facility])2021-10-12 19:48:53 Test Item Value Reference Range Interpretation Comments Troponin I HS (test 6 pg/ml See_Comment [Automa pineda code = 37236-4) message] The system which generated this result transmitted reference range : <=35. The reference range was not used to interpret this result as normal/abnormal . COLEEN (test code = Embossing Machine Operator Helper ID - DENISSE COLEEN) MThe HUB LEAD STAT High Sensitivity Troponin-I results should be used in conjunction with other diagnostic information such as ECG, clinical observations and information, and patient symptoms to aid in the diagnosis of [place]. Lab Interpretation Normal (test code = 55100-5) [facility] ([facility]/Nohemy Only)2021-10-12 19:48:53 Test Item Value Reference Range Interpretation Comments Troponin I HS (test 6 pg/ml See_Comment [Automa pineda code = 33581-1) message] The system which generated this result transmitted reference range : <=35. The reference range was not used to interpret this result as normal/abnormal . COLEEN (test code = Embossing Machine Operator Helper ID - DENISSE COLEEN) [employer] H[employer] LEAD STAT High Sensitivity Troponin-I results should be used in conjunction with other diagnostic information such as ECG, clinical observations and information, and patient symptoms to aid in the diagnosis of [place]. Lab Interpretation Normal (test code = 91539-3) [facility] TROPONIN [id number] 19:48:53 Test Item Value Reference Range Interpretation Comments HIGH SENSITIVITY 6 pg/ml See_Comment [Automated message] TROPONIN I (test code = The system which 2021518) generated this result transmitted ref erence range: <=35. Th e reference range was not used to interpr et this result as normal/abnormal . Embossing Machine Operator Helper ID - DENISSE [employer] H[employer] LEAD STAT High Sensitivity Troponin-I results should be used in conjunction with other diagnostic information such as ECG, clinical observations and information, and patient symptoms to aid in the diagnosis of [place].B-type Natriuretic Factor (BNP)2021-10-12 19:48:30 Test Item Value Reference Range Interpretation Comments BNP (test code = 88861-5) 16 pg/mL 0-100 COLEEN (test code = COLEEN) Embossing Machine Operator Helper ID - DENISSE Haynes Lab Interpretation (test Normal code = 82039-9) [facility] (BNP)2021-10-12 19:48:30 Test Item Value Reference Range Interpretation Comments BNP (test code = 32462-2) 16 pg/mL 0-100 COLEEN (test code = COLEEN) Embossing Machine Operator Helper CHELO Haynes Lab Interpretation (test Normal code = 43495-8) [facility] NATRIURETIC FACTOR (BNP)2021-10-12 19:48:30 Test Item Value Reference Range Interpretation Comments B-TYPE NATRIURETIC PEPTIDE (BEAKER) 16 pg/mL 0-100 (test code = 700) Embossing Machine Operator Helper ID Shruthi SALCEDO asic Metabolic [id number] 19:44:59 Test Item Value Reference Range Interpretation Comments Sodium (test code = 137 meq/L 680-266 8726-2) Potassium (test code 3.5 meq/L 3.5-5.1 Specime [...] (test code = 10.7 mg/dL 8.4-10.2 H 87219-5) EGFR (test code = [place] [address]-7) CLINICAL DATA T O CALCULATE ESTIMATED GFR. COLEEN (test code = COLEEN) Embossing Machine Operator Helper ID Shruthi Haynes Lab Interpretation Abnormal (test code = 44897-9) [facility] Metabolic [id number] 19:44:59 Test Item Value Reference Range Interpretation Comments Sodium (test code = 137 meq/L 683-994 6401-2) Potassium (test code 3.5 meq/L 3.5-5.1 Specime n slightly = 2823-3) hemolyzed Chloride (test code = 102 meq/L 98-107 2075-0) CO2 (test code = 23 meq/L 2027-) BUN (test code = 16 mg/dL 02-27 3094-0) Creatinine (test code 1.20 mg/dL 0.57-1.25 Specim en slightly = 2160-0) hemolyzed Glucose (test code = 164 mg/dL 70-105 H 2345-7) Calcium (test code = 10.7 mg/dL 8.4-10.2 H 30174-5) EGFR (test code = [place] [address]-5) CLINICAL DATA T O CALCULATE ESTIMATED GFR. COLEEN (test code = COLEEN) Embossing Machine Operator Helper CHELO Haynes Lab Interpretation Abnormal (test code = 49683-3) [facility] METABOLIC [id number] 19:44:59 Test Item Value Reference Range Interpretation [...] 1092) DATA TO CALCULA TE ESTIMATED GFR. Embossing Machine Operator Helper CHELO Shruthi SALCEDO MLiver [id number] 19:42:51 Test Item Value Reference Range Interpretation Comments Protein, Total (test 8.1 See_Comment Specime n slightly code = 2885-2) hemolyzed [Automated message] The system which generated this result transmit pineda reference range : 6.0 - 8.3 gm/dL . The reference range was not u sed to interpret th is result as normal/abnormal . Albumin (test code = 4.1 g/dL 3.5-5.0 Specime n slightly 43588-7) hemolyzed Total Bilirubin (test 0.9 mg/dL 0.2-1.2 [...] 1742-6) hemolyzed COLEEN (test code = COLEEN) Embossing Machine Operator Helper ID - DENISSE M Lab Interpretation Abnormal (test code = 14227-1) [facility] [id number] 19:42:51 Test Item Value Reference Range Interpretation Comments Protein, Total (test 8.1 See_Comment Specime n slightly code = 2885-2) hemolyzed [Automated message] The system which generated this result transmit pineda reference range : 6.0 - 8.3 gm/dL . The reference range was not u sed to interpret th is result as normal/abnormal . Albumin (test code = 4.1 g/dL 3.5-5.0 Specime n slightly 13453-0) hemolyzed Total Bilirubin (test 0.9 mg/dL 0.2-1.2 Specim en slightly code = 1974-09) hemolyzed Bilirubin, Direct 0.4 mg/dL 0.1-0.5 Specimen s lightly (test code = 1967-) hemolyz ed Alkaline Phosphatase 145 U/L 40-150 (test code = 6768-6) AST (test code = 46 U/L 5-34 H Specimen sl ightly 1920-8) hemolyzed ALT (test code = 98 U/L 6-55 H Specimen sl ightly 1742-6) hemolyzed COLEEN (test code = COLEEN) Embossing Machine Operator Helper ID - DENISSE M Lab Interpretation Abnormal (test code = 79896-4) [facility]AT[facility] FUNCTION [id number] 19:42:51 Test Item Value Reference Range Interpretation [...] Specimen slightly (test code = 347) hemolyzed Embossing Machine Operator Helper CHELO - DENISSE [id number] 19:41:30 Test Item Value Reference Range Interpretation Comments D-Dimer, Quant (test 0.80 See_Comment H [Autom ated code = 76143-4) message] The system which generated this result [...] range. Lab Interpretation Abnormal (test code = 44488-9) [facility]-[id number] 19:41:30 Test Item Value Reference Range Interpretation Comments D-Dimer, Quant (test 0.80 See_Comment H [Autom ated code = 08043-4) message] The system which generated this result [...] range. Lab Interpretation Abnormal (test code = 36835-2) [id number] 19:41:30 Test Item Value Reference Range Interpretation [...] of thrombosis is within 95-100% range. Prothrombin time/[id number] 19:38:54 Test Item Value Reference Interpretation Comments Range Protime (test code = 14.1 See_Comment [Autom QMCODESd [email or web address]) message] The system which generated this result transmitted reference range : 11.9 - 14.2 seconds. The reference range was not used to interpret this result as normal/abnormal . INR (test code = 1.11 See_Comment [Automated Convrrt-LIFEMODELER) message] The system which generated this result [...] valves. Lab Interpretation Normal (test code = 23520-0) [facility]/[id number] 19:38:54 Test Item Value Reference Interpretation Comments Range Protime (test code = 14.1 See_Comment [Autom ated [email or web address]) message] The system which generated this result transmitted reference range : 11.9 - 14.2 seconds. The reference range was not used to interpret this result as normal/abnormal . INR (test code = 1.11 See_Comment [Automated Salir.com1-6) message] The system which generated this result [...] valves. Lab Interpretation Normal (test code = 62869-2) [facility]PROTHROMBIN TIME/[id number] 19:38:54 Test Item Value Reference Range Interpretation Comments PROTIME (BEAKER) 14.1 seconds 11.9-14.2 (test code = 759) INR (BEAKER) (test 1.11 See_Comment [Automat ed message] code = 370) The system [employer] generated this result transmitted ref erence range: [...] mg/dL 70-100 KIMMY CHAPMAN METERMeter ID: GMG) [id number] tor: [id number] CARMELA RAM
--- NOTE | 2023-07-06 22:36 | RAD REPORT ---
EXAM DESCRIPTION: RADChest Single View07/06/2023 10:27 pm CLINICAL HISTORY: CHEST PAIN COMPARISON: Chest Pa And Lat (2 Views) dated 09/08/2022; Chest Single View dated 08/09/2022; Chest Pa And Lat (2 Views) dated 08/06/2022; Chest Single View dated 10/07/2021 TECHNIQUE: Portable AP view of the chest. FINDINGS: The lungs are clear. No pneumothorax or effusion. The cardiomediastinal contours are unre markable. IMPRESSION: No acute cardiopulmonary process.
[2023-07-06] MEDS ORDERED: NA CHLORIDE 0.9% 1,000 ML ONE (22:55)
[2023-07-06 23:20] LABS: Bilirubin Direct 0.2 mg/dL (0-0.2); Bilirubin Indirect, Calculated 0.3 mg/dL (0.2-0.8); Bilirubin Total 0.5 mg/dL (0.2-1.0); Potassium 3.9 mEq/L (3.5-5.1); Protein, Total 6.7 g/dL (6.4-8.2)
[2023-07-06 23:21] LABS: Magnesium 1.8 mg/dL (1.6-2.4); Protime INR 1.09; Troponin High Sensitivity 8.9 pg/mL (<58.9)
[2023-07-06 23:23] LABS: Absolute Lymphocytes (CBC) 2.4 K/uL (0.7-4.9); Hematocrit 52.2 % (39.6-49.0); MCV 93.3 fL (80-100); MPV 8.2 fL (7.6-11.3); Platelets 199 thou/uL (152-406)
[2023-07-07] MEDS ORDERED: ONDANSETRON 4 MG/2 ML VIAL ONE (00:58)
[2023-07-07] MEDS ORDERED: MORPHINE 4 MG/ML SYR ONE (00:58)
--- NOTE | 2023-07-07 03:09 | EDPHYS ---
Physician Documentation [facility] Name: Drew Jc Age: 42 yrs Sex: Male : 1980 Arrival Date: 07/06/2023 Time: 21:04 Bed 18 Private MD: ED Physician Tomer Shipley HPI: 07/06 21:45 This 42 yrs old Male presents to ER via Ambulatory with complaints of cp Abdominal Pain, Back Pain. 21:45 The patient presents with abdominal pain. Onset: The symptoms/episode began/occurred cp yesterday. Associated signs and symptoms: Pertinent positives: chest pain, constipation, low back pain, Pertinent negatives: fever, testicular pain, vomiting. The symptoms are described as constant. 21:45 Severity of pain: in the emergency department the pain is unchanged despite home cp interventions. Historical: - Allergies: 21:26 NKA; mb9 - PMHx: 21:26 Diabetes - NIDDM; Hypertension; Hypothyroidism; Pancreatitis; mb9 - PSHx: 21:26 Appendectomy; Cholecystectomy; meniscus repair; R ankle SX; Tonsillectomy; mb9 - Immunization history:: Adult Immunizations up to date. - Social history:: Smoking status: Patient denies any tobacco usage or history of. ROS: 21:50 Constitutional: Negative for body aches, chills, fever, poor PO intake, cp 21:50 Cardiovascular: Positive for chest pain, Negative for edema, palpitations, cp 21:50 Eyes: Negative for injury, pain, redness, and discharge, cp 21:50 ENT: Negative for drainage from ear(s), ear pain, sore throat, difficulty swallowing, difficulty handling secretions, 21:50 Respiratory: Negative for cough, wheezing, 21:50 Abdomen/GI: Positive for abdominal pain, constipation, Negative for vomiting, diarrhea, 21:50 Back: Positive for pain at rest, pain with movement, 21:50 : Negative for urinary symptoms, testicular pain 21:50 Neuro: Negative for altered mental status, dizziness, headache, syncope, weakness, 21:50 All other systems are negative, Exam: 21:37 ECG was reviewed by the Attending Physician. cp 21:55 Constitutional: The patient appears in no acute distress, alert, awake, cp non-diaphoretic, non-toxic, well developed, well nourished, uncomfortable, 21:55 Head/Face: Normocephalic, atraumatic. cp 21:55 Eyes: Periorbital structures: appear normal, Conjunctiva: normal, no exudate, no injection, Sclera: no appreciated abnormality, Lids and lashes: appear normal, bilaterally, 21:55 ENT: External ear(s): are unremarkable, Nose: is normal, Mouth: Lips: moist, Oral mucosa: pink and intact, moist, Posterior pharynx: is normal, airway is patent, no erythema, no exudate, 21:55 Neck: ROM/movement: is normal, is supple, without pain, no range of motions limitations, 21:55 Chest/axilla: Inspection: normal, 21:55 Cardiovascular: Rate: normal, Rhythm: regular, Edema: is not appreciated, JVD: is not appreciated, 21:55 Respiratory: the patient does not display signs of respiratory distress, Respirations: normal, no use of accessory muscles, no retractions, labored breathing, is not present, Breath sounds: are clear throughout, no decreased breath sounds, no stridor, no wheezing, 21:55 Abdomen/GI: Inspection: abdomen appears normal, Bowel sounds: active, all quadrants, Palpation: soft, in all quadrants, moderate abdominal tenderness, in the right upper quadrant and left upper quadrant, rebound tenderness, is not appreciated, involuntary guarding, is not appreciated, 21:55 Back: pain, that is moderate, CVA tenderness, is absent, 21:55 Skin: no rash present. 21:55 Neuro: Orientation: to person, place \T\ time. Mentation: is normal, Motor: moves all fours, strength is normal, Sensation: is normal, Vital Signs: 21:24 BP 151 / 84; Pulse 72; Resp 19; Temp 97.9; Pulse Ox 99% ; Weight 83.01 kg; Height 5 ft. mb9 9 in. ; Pain 9/10; 23:00 BP 181 / 92; Pulse 73; Resp 16; Pulse Ox 100% on R/A; jb4 07/07 01:00 BP 160 / 85; Pulse 73; Resp 16; Pulse Ox 96% on R/A; jb4 02:00 BP 167 / 81; Pulse 72; Resp 16; Pulse Ox 97% on R/A; jb4 07/06 21:24 Body Mass Index 27.02 (83.01 kg, 175.26 cm) mb9 07/06 21:24 Pain Scale: Adult mb9 MDM: 07/06 21:33 Patient medically screened. 22:00 Differential diagnosis: AAA, acute coronary syndrome, bowel obstruction, gastritis, cp non-specific abd pain, pancreatitis, Peptic Ulcer Disease, Perf. Duodenal Ulcer, Perf. Gastric Ulcer, Pyelonephritis, Testicular Torsion, Ureterolithiasis. 07/07 00:32 Data reviewed: vital signs, nurses notes, old medical records, lab test result(s), EKG. sp4 03:08 I considered the following discharge prescriptions or medication management in the emergency department Medications were administered in the Emergency Department. See MAR. 03:08 Care significantly affected by the following chronic conditions: Diabetes, cp Hypertension. Counseling: I had a detailed discussion with the patient and/or guardian regarding the historical points, exam findings, and any diagnostic results supporting the discharge/admit diagnosis, lab results, radiology results, to return to the emergency department if symptoms worsen or persist or if there are any questions or concerns that arise at home. Response to treatment: the patient's symptoms have mildly improved after treatment, and as a result, I will discharge patient. Special discussion: Based on the patient's history, exam, and Dx evaluation, there is no indication for emergent intervention or inpatient Tx. It is understood by the patient/guardian that if the Sx's persist or worsen they need to return immediately for re-evaluation. Based on the patient's Hx, exam, and Dx evaluation, there is no indication for emergent surgery or inpatient Tx. It is understood by the patient/guardian that if the Sx's persist or worsen they need to return immediately for re-evaluation. 07/06 21:41 Order name: Basic Metabolic Panel; Complete Time: 00:14 cp 07/07 00:14 Interpretation: Normal except: CL 108; BUN 19. 07/06 21:41 Order name: CBC with Diff; Complete Time: 00:14 07/07 00:14 Interpretation: Normal except: RBC 5.60; HCT 52.2. 07/06 21:41 Order name: LFT's; Complete Time: 00:14 07/07 00:14 Interpretation: Normal except: AST 44; ALB 3.0; GLOB 3.7; A/G 0.8. 07/06 21:41 Order name: Magnesium; Complete Time: 00:14 cp 07/06 21:41 Order name: NT PRO-BNP; Complete Time: 00:14 cp 07/06 21:41 Order name: PT-INR; Complete Time: 00:14 cp 07/06 21:41 Order name: Troponin HS; Complete Time: 00:14 cp 07/07 00:15 Interpretation: Within normal limits: Troponin HS 8.9; Reviewed. 07/06 21:41 Order name: Lipase; Complete Time: 00:14 07/07 01:46 Order name: Troponin High Sensitivity; Complete Time: 03:08 cp 07/06 21:41 Order name: XRAY Chest (1 view); Complete Time: 00:14 cp 07/06 21:41 Order name: CT Aorta for Dissection 07/06 21:41 Order name: EKG; Complete Time: 21:42 07/06 21:41 Order name: Cardiac monitoring; Complete Time: 22:51 07/06 21:41 Order name: EKG - Nurse/Tech; Complete Time: 21:45 cp 07/06 21:41 Order name: IV Saline Lock; Complete Time: 22:51 07/06 21:41 Order name: Labs collected and sent; Complete Time: 22:51 07/06 21:41 Order name: O2 Per Protocol; Complete Time: 22:18 cp 07/06 21:41 Order name: O2 Sat Monitoring; Complete Time: 22:18 cp EC/27 21:37 Rate is 68 beats/min. Rhythm is regular. TX interval is normal. QRS interval is cp prolonged at 150 msec. QT interval is normal. T waves are Inverted in lead aVR. Interpreted by me. Reviewed by me. Administered Medications: 22:50 Drug: NS 0.9% IV 1000 ml IV at 1 bolus Per protocol; 1000 mL bolus Route: IV; Rate: 1 jb4 bolus; Site: right antecubital; 07/07 00:52 Drug: morphine IVP or IV 4 mg IVP once over 4 mins Route: IVP; Infused Over: 4 mins; jb4 Site: right antecubital; 00:52 Drug: Ondansetron IVP 4 mg IVP once; over 2 minutes Route: IVP; Site: right antecubital;jb4 03:29 Drug: Lactulose PO 30 grams 45 ml PO once; constipation Volume: 45 ml; Route: PO; jb4 Disposition: 00:32 Co-signature as Attending Physician, Tomer Shipley MD I agree with the assessment sp4 and plan of care. I reviewed the patient's care provided by Advanced Practice Provider \T\ agree w/ the diagnosis \T\ care plan. I personally saw the pt \T\ performed a substantive portion of the visit, incldng all aspects of the (History/Exam/Medical Decision Making). Disposition Summary: 07/07/23 03:08 Discharge Ordered Notes: Location: Home cp Problem: new cp Symptoms: have improved cp Condition: Stable cp Diagnosis - Chest pain, unspecified cp - Abdominal pain, unspecified cp - Constipation cp - Low back pain cp Followup: cp - With: Hair Matos MD - When: 1 week - Reason: chest pain Discharge Instructions: - Discharge Summary Sheet cp - Abdominal Pain, Adult cp - Acute Back Pain, Adult cp - Nonspecific Chest Pain, Adult cp - Constipation, Adult cp - Aspirin and Your Heart cp - Back Exercises cp Forms: - Medication Reconciliation Form cp - Thank You Letter cp - Antibiotic Education cp - Prescription Opioid Use cp - Patient Portal Instructions cp - Leadership Thank You Letter cp Prescriptions: - Golytely [id number] -5.86 gram Oral Recon Soln - take 240 milliliter ORAL route once; 240 milliliter; Refills: 0, Product cp Selection Permitted - Diclofenac Sodium 75 mg Oral Tablet Sustained Release - take 1 tablet ORAL route 2 times per day; 30 tablet; Refills: 0, Product cp Selection Permitted - orphenadrine citrate 100 mg Oral Tablet Sustained Release - take 1 tablet ORAL route 2 times per day As needed; 20 tablet; Refills: 0, cp Product Selection Permitted Signatures: Dispatcher [employer] EDPA Froylan Ahumada PA PA cp Victor Hugo Dillard RN RN jb4 Reina Torres RN RN mb9 Tomer Shipley MD MD sp4
--- NOTE | 2023-07-07 03:09 | ER ---
Nurse's Notes [facility] Name: Drew Jc Age: 42 yrs Sex: Male : 1980 Arrival Date: 07/06/2023 Time: 21:04 Bed 18 Private MD: Diagnosis: Chest pain, unspecified;Abdominal pain, unspecified;Constipation;Low back pain Presentation: 07/06 21:24 Chief complaint: Patient states: "Ever since yesterday, I've had low back pain, mb9 abdominal pain, and SOB/chest pain on and off. I haven't had a BM since Thursday but when I do there is a little bit of bright red blood. I had da superficial blood clot on my left leg a few weeks ago". Coronavirus screen: Vaccine status: Patient reports receiving the 2nd dose of the covid vaccine. Ebola Screen: No symptoms or risks identified at this time. Initial Sepsis Screen: Does the patient meet any 2 criteria? No. Patient's initial sepsis screen is negative. Does the patient have a suspected source of infection? No. Patient's initial sepsis screen is negative. Risk Assessment: Do you want to hurt yourself or someone else? Patient reports no desire to harm self or others. Onset of symptoms was July 06, 2023. 21:24 Method Of Arrival: Ambulatory mb9 21:24 Acuity: COCO 3 mb9 Historical: - Allergies: 21:26 NKA; mb9 - PMHx: 21:26 Diabetes - NIDDM; Hypertension; Hypothyroidism; Pancreatitis; mb9 - PSHx: 21:26 Appendectomy; Cholecystectomy; meniscus repair; R ankle SX; Tonsillectomy; mb9 - Immunization history:: Adult Immunizations up to date. - Social history:: Smoking status: Patient denies any tobacco usage or history of. Screenin/28 03:30 [facility] ED Fall Risk Assessment (Adult) History of falling in the last 3 months, jb4 including since admission No falls in past 3 months (0 pts) Confusion or Disorientation No (0 pts) Score/Fall Risk Level 0 - 2 = Low Risk Oriented to surroundings, Maintained a safe environment. Abuse screen: Denies threats or abuse. Nutritional screening: No deficits noted. Tuberculosis screening: No symptoms or risk factors identified. Assessment: 07/06 22:45 General: Appears in no apparent distress. uncomfortable, Behavior is calm, cooperative, jb4 appropriate for age. Pain: Complains of pain in abdomen Pain does not radiate. Pain currently is 8 out of 10 on a pain scale. Neuro: Level of Consciousness is awake, alert, obeys commands, Oriented to person, place, time, situation. Cardiovascular: Patient's skin is warm and dry. Respiratory: Airway is patent Respiratory effort is even, unlabored, Respiratory pattern is regular, symmetrical. GI: Abdomen is round non-distended. : No signs and/or symptoms were reported regarding the genitourinary system. EENT: No signs and/or symptoms were reported regarding the EENT system. Derm: Skin is intact, Skin is pink, warm \\T\\ dry. 07/07 00:00 Reassessment: Patient appears in no apparent distress at this time. Patient and/or jb4 family updated on plan of care and expected duration. Pain level reassessed. Patient is alert, oriented x 3, equal unlabored respirations, skin warm/dry/pink. 01:00 Reassessment: Patient appears in no apparent distress at this time. Patient and/or jb4 family updated on plan of care and expected duration. Pain level reassessed. Patient is alert, oriented x 3, equal unlabored respirations, skin warm/dry/pink. 02:00 Reassessment: Patient appears in no apparent distress at this time. Patient and/or jb4 family updated on plan of care and expected duration. Pain level reassessed. Patient is alert, oriented x 3, equal unlabored respirations, skin warm/dry/pink. 03:00 Reassessment: Patient appears in no apparent distress at this time. Patient and/or jb4 family updated on plan of care and expected duration. Pain level reassessed. Patient is alert, oriented x 3, equal unlabored respirations, skin warm/dry/pink. Vital Signs: 07/06 21:24 BP 151 / 84; Pulse 72; Resp 19; Temp 97.9; Pulse Ox 99% ; Weight 83.01 kg; Height 5 ft. mb9 9 in. ; Pain 04/19; 23:00 BP 181 / 92; Pulse 73; Resp 16; Pulse Ox 100% on R/A; jb4 07/07 01:00 BP 160 / 85; Pulse 73; Resp 16; Pulse Ox 96% on R/A; jb4 02:00 BP 167 / 81; Pulse 72; Resp 16; Pulse Ox 97% on R/A; jb4 07/06 21:24 Body Mass Index 27.02 (83.01 kg, 175.26 cm) mb9 07/06 21:24 Pain Scale: Adult mb9 ED Course: 07/06 21:09 Patient arrived in ED. ag3 21:25 EKG done, by ED staff, reviewed by Tomer Shipley MD. mb9 21:26 Triage completed. mb9 21:26 Arm band placed on. mb9 21:33 Froylan Ahumada PA is PHCP. cp 21:33 Tomer Shipley MD is Attending Physician. cp 22:29 XRAY Chest (1 view) In Process Unspecified. EDMS 22:44 Initial lab(s) drawn, by nj, sent to lab. Inserted saline lock: 20 gauge in right jb4 antecubital area, using aseptic technique. Blood collected. 07/07 00:03 CT Aorta for Dissection In Process Unspecified. EDMS 03:02 Victor Hugo Dillard, RN is Primary Nurse. jb4 03:08 Hair Matos MD is Referral Physician. cp 03:30 Patient has correct armband on for positive identification. Bed in low position. Call jb4 light in reach. Side rails up X 1. 03:30 No provider procedures requiring assistance completed. IV discontinued, intact, jb4 bleeding controlled, No redness/swelling at site. Pressure dressing applied. Administered Medications: 07/06 22:50 Drug: NS 0.9% IV 1000 ml IV at 1 bolus Per protocol; 1000 mL bolus Route: IV; Rate: 1 jb4 bolus; Site: right antecubital; 07/07 00:52 Drug: morphine IVP or IV 4 mg IVP once over 4 mins Route: IVP; Infused Over: 4 mins; jb4 Site: right antecubital; 00:52 Drug: Ondansetron IVP 4 mg IVP once; over 2 minutes Route: IVP; Site: right antecubital;jb4 03:29 Drug: Lactulose PO 30 grams 45 ml PO once; constipation Volume: 45 ml; Route: PO; jb4 Medication: 03:30 VIS not applicable for this client. jb4 Outcome: 03:08 Discharge ordered by . cp 03:30 Discharged to home ambulatory, jb4 03:30 Condition: stable 03:30 Discharge instructions given to patient, Instructed on discharge instructions, follow up and referral plans. medication usage, Demonstrated understanding of instructions, follow-up care, medications, Prescriptions given X 3, 03:31 Patient left the ED. jb4 Signatures: Dispatcher [employer] EDMS Froylan Ahumada PA PA cp Bryson, James RN RN jb4 Briana Wolf Reina Torres, RN RN mb9
[2023-07-07] MEDS ORDERED: LACTULOSE 20 GM/30 ML UCUP ONE (03:33)
[2023-07-07 03:36] VITALS: TEMP 97.9
[2023-07-07 03:41] VITALS: BP 167/81; O2SAT 97
--- NOTE | 2023-07-07 15:15 | RAD REPORT ---
EXAM DESCRIPTION: CT - Angio Aorta For Dissection - 07/07/2023 12:01 am CLINICAL HISTORY: The patient is 42 years old and is Male; chest pain;Abd pain TECHNIQUE: Axial computed tomographic angiography images of the chest, abdomen and pelvis with intra venous contrast. Sagittal and coronal reformatted images were created and reviewed. This CT exam was performed using one or more of the following dose reduction techniques: automated exposure cont rol, adjustment of the mA and/or kV according to patient size, and/or use of iterative reconstruction technique. MIP reconstructed images were created and reviewed. COMPARISON: No relevant prior studies available. FINDINGS: VASCULATURE: Aorta: Calcified and noncalcified plaque in the aorta. No aortic aneurysm. No dissection. Pulmonary arteries: Unremarkable as visualized. No pulmonary embolism is identified. Great vessels of aortic arch: No acute findings. No dissection. No arterial occlusion or sign ificant stenosis. Celiac trunk and mesenteric arteries: No acute findings. No occlusion or significant stenosis. Renal arteries: No acute findings. No occlusion or significant stenosis. Iliac arteries: No acute findings. No occlusion or significant stenosis. CHEST: Lungs: Unremarkable. No mass. No consolidation. Pleural space: Unremarkable. No significant effusion. No pneumothorax. Heart: Unremarkable. No cardiomegaly. No significant pericardial effusion. ABDOMEN: Liver: Unremarkable. No mass. Gallbladder and bile ducts: Gallbladder is surgically absent. No ductal dilation. Pancreas: Unremarkable. No ductal dilation. No mass. Spleen: Unremarkable. No splenomegaly. Adrenals: Unremarkable. No mass. Kidneys and ureters: Unremarkable. No hydronephrosis. No solid mass. Stomach and bowel: Suggestion of some rectal and sigmoid mucosal thickening. No obstruction. PELVIS: Appendix: No findings to suggest acute appendicitis. Bladder: Mild diffuse bladder wall thickening. Reproductive: Unremarkable as visualized. CHEST, ABDOMEN and PELVIS: Intraperitoneal space: Unremarkable. No significant fluid collection. No free air. Bones/joints: No acute fracture. No dislocation. Soft tissues: Unremarkable. Lymph nodes: Unremarkable. No enlarged lymph nodes. IMPRESSION: 1. Suggestion of some rectal and sigmoid mucosal thickening. Correlate with any conc chema for proctocolitis. 2. Mild diffuse bladder wall thickening. Correlate with any concern for cystitis, chronic bladder outlet obstruction, or other infiltrative process. 3. Additional non-emergent findings as above. Electronically signed by: Carlito Devlin MD 07/07/2023 01:16 AM COUNTY HISTORIAN Due to temporary technical issues with the PACS/Fluency reporting system, reports are being signed by the in house radiologists without review as a courtesy to insure prompt reporting. The interpreting radiologist is fully responsible for the content of the report.
--- NOTE | 2023-07-09 15:24 | EKG ---
Test Date: 2023-07-06 Test Time: 21:31:29 Dye Box Operator: MB MEASUREMENT RESULTS: Intervals: Rate: 73 SC: 142 QRSD: 148 QT: 412 QTc: 453 Lott: P: 93 SC: 142 QRS: -82 T: 26 INTERPRETIVE STATEMENTS: Normal sinus rhythm Right bundle branch block Left anterior fascicular block Bifascicular block Abnormal ECG Compared to ECG 07/06/2023 21:31:03 No significant changes Electronically Signed On 07-09-23 15:14:47 INHALATION THERAPIST by Hair Matos
--- NOTE | 2023-07-09 15:25 | EKG ---
Test Date: 2023-07-06 Test Time: 21:31:03 Pin Worker: TORRIE MEASUREMENT RESULTS: Intervals: Rate: 68 CO: 128 QRSD: 150 QT: 420 QTc: 446 Snyder: P: 5 CO: 128 QRS: -84 T: 13 INTERPRETIVE STATEMENTS: Normal sinus rhythm Right bundle branch block Left anterior fascicular block Bifascicular block Abnormal ECG Compared to ECG 08/06/2022 18:39:30 Left anterior fascicular block now present Bifascicular block now present Sinus tachycardia no longer present Electronically Signed On 07-09-23 15:14:49 PREPARATION ROOM WORKER by Hair Matos
== END 2023-07-07 03:31 | disposition home or self-care (01) ==
LOC: ER 21:04
DX: R07.89 Other chest pain (principal); R10.10 Upper abdominal pain, unspecified; K59.00 Constipation, unspecified; M54.50 Low back pain, unspecified; E11.9 Type 2 diabetes mellitus without complications; I10 Essential (primary) hypertension
CPT/HCPCS: 93005 ×2; 85025; 80048; 36415; 83735; 85610; 80076; 84484 ×2; 83690; 83880; 71275; 74175; 71045; 96375; 96374; 99284; Q9967; J2405; J7030

== ENCOUNTER 2023-12-02 06:25 | Day surgery (SDC) | payer BC ==
[2023-12-02] MEDS: NA CHLORIDE 0.9% 1,000 ML ONE (06:53)
[2023-12-02] MEDS ORDERED: propofoL 200 MG/20 ML VIAL IV ONE (07:30)
[2023-12-02] MEDS ORDERED: LIDOCAINE 1% MPF 5 ML VIAL ONE (07:30)
[2023-12-02 09:17] VITALS: BP 120/65; TEMP 97; O2SAT 99
== END 2023-12-02 09:08 | disposition home or self-care (01) ==
LOC: OR 06:25
PROVIDERS: ATTEND Internal Medicine Gastroenterology
PROC: 0DJD8ZZ Inspection of Lower Intestinal Tract, Via Natural or Artificial Opening Endoscopic (ICD-10-PCS; principal; 2023-12-02 07:30)
DX: Z12.11 Encounter for screening for malignant neoplasm of colon (principal); R63.4 Abnormal weight loss; R79.89 Other specified abnormal findings of blood chemistry; K64.8 Other hemorrhoids
CPT/HCPCS: 80048; 36415; 82947 ×2; 45378; J2704; J2001; J7030

== ENCOUNTER 2024-04-03 14:08 | Emergency (ER) | payer BC ==
[2024-04-03 17:04] LABS: Absolute Lymphocytes (CBC) 2.2 K/uL (0.7-4.9); Absolute Monocytes 0.7 K/uL (0.1-1.3); Absolute Neutrophil 8.5 K/uL (1.8-8.0); Basophils % 0.3 % (0-1.3); Eosinophils % 0.2 % (0-4.4); Hematocrit 53.8 % (39.6-49.0); Hemoglobin 17.9 g/dL (13.6-17.9); Lymphocytes % 19.2 % (15.3-44.8); MCH 31.7 pg (27.0-35.0); MCHC 33.3 g/dL (32.0-36.0); MCV 95.1 fL (80-100); Neutrophils % 74.3 % (41.7-73.7); Platelets 252 thou/uL (152-406); RBC Red Blood Cell Count 5.66 M/uL (4.33-5.43); Red Cell Distribution Width 13.3 % (12.1-15.2)
[2024-04-03 17:25] LABS: Albumin 3.9 g/dL (3.4-5.0); Albumin/Globulin Ratio 0.9 (1.1-1.8); Anion Gap 10.2 mEq/L (5.0-15.0); Bilirubin Total 0.9 mg/dL (0.2-1.0); Globulin 4.3 g/dL (2.3-3.5); Magnesium 1.7 mg/dL (1.6-2.4); Potassium 5.2 mEq/L (3.5-5.1); Protein, Total 8.2 g/dL (6.4-8.2); Troponin High Sensitivity 7.3 pg/mL (<58.9)
[2024-04-03 17:31] LABS: Specific Gravity 1.025 (1.005-1.030); Sqamous Epithelial <5 /HPF (None Seen); Urine Bacteria None Seen /HPF (<20); Urine Bilirubin NEGATIVE (Negative); Urine Blood Negative (Negative); Urine Clarity Clear (Clear); Urine Color Yellow (Yellow); Urine Culture Reflex Order NOT NEEDED; Urine Glucose 4+ (Negative); Urine Ketones NEGATIVE (Negative); Urine Microscopic Reflex YN ORDER UMIC; Urine Mucus Slight /HPF (None Seen); Urine Nitrite NEGATIVE (Negative); Urine Protein 2+ (Negative); Urine RBC <5 /HPF (None Seen); Urine Urobilinogen Normal (Normal); Urine WBC None Seen /HPF (<5); Urine pH 5.5 (5.0-7.0)
[2024-04-03] MEDS ORDERED: MORPHINE 4 MG/ML SYR ONE (17:55)
[2024-04-03] MEDS ORDERED: NA CHLORIDE 0.9% 1,000 ML ONE (17:55)
[2024-04-03] MEDS ORDERED: ONDANSETRON 4 MG/2 ML VIAL ONE (17:55)
--- NOTE | 2024-04-03 18:45 | RAD REPORT ---
EXAM DESCRIPTION: CT - Head C Spine Cap Morgan Thompson - 04/03/2024 5:40 pm CLINICAL HISTORY: abdominal pain, possible pancreatitis;Trauma COMPARISON: Abdomen Exam Complete dated 12/10/2023 TECHNIQUE: Head and cervical spine CT images were obtained without IV contrast. Chest, abdomen, and pelvis CT images were obtained following intravenous administration of 90 mL Isovue-300. Multiplanar reformats were generated and reviewed. All CT scans are performed using dose optimization technique as appropriate and may include automated exposure control or mA/KV adjustment according to patient size. FINDINGS: CT HEAD: No intracranial hemorrhage, mass effect, or edema. No evidence of acute territorial infarct. No midli ne shift or abnormal fluid collection. The ventricles are normal in caliber and configuration for age . Basal cisterns are patent. Mastoid aircells and paranasal sinuses are clear. No acute skull fractur e. CT CERVICAL SPINE: No acute cervical spine fracture or subluxation. Vertebral body heights are well maintained. Facet jael ints are normal in alignment. No hyperattenuating canal hematoma. Prevertebral and paraspinous soft t issues are unremarkable. CT CHEST: No pneumothorax, pulmonary contusion or pleural fluid collection. No mediastinal hematoma and the aor ta and pulmonary arteries are unremarkable. No chest will mass or abnormal axillary finding. No displ aced rib fracture or other significant bony finding. CT ABDOMEN/ PELVIS: No evidence of traumatic injury to solid abdominal viscera. Gallbladder was surgically removed. No gurwinder wel injury or significant finding. Moderate stool burden in the rectum. No free air, free fluid or ab normal fat stranding. Bladder is decompressed limiting evaluation, however with nearly diffuse bladde r wall thickening. No significant bony finding. IMPRESSION: No acute traumatic findings. Nearly diffuse bladder wall thickening, although decompression limits evaluation. Please correlate cl inically for cystitis, and consider additional evaluation via urinalysis.
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
[2024-04-03] MEDS ORDERED: HYDROCODONE/APAP 10/325 TAB ONE (19:44)
[2024-04-03 20:14] VITALS: TEMP 98.7
[2024-04-03 20:16] VITALS: BP 138/78; O2SAT 98
--- NOTE | 2024-04-04 10:00 | EKG ---
Test Date: 2024-04-03 Test Time: 17:19:41 Visual Effects Editor: ESVIN MEASUREMENT RESULTS: Intervals: Rate: 75 IN: 150 QRSD: 148 QT: 396 QTc: 442 [place]: P: 9 IN: 150 QRS: -85 T: 36 INTERPRETIVE STATEMENTS: Normal sinus rhythm Left axis deviation Right bundle branch block Abnormal ECG Compared to ECG 07/06/2023 21:31:29 Left-axis deviation now present Left anterior fascicular block no longer present Bifascicular block no longer present Electronically Signed On 04-04-24 10:00:05 CDT by Stefan Kapadia
== END 2024-04-03 19:56 | disposition home or self-care (01) ==
LOC: ER 14:08
DX: S09.90XA Unspecified injury of head, initial encounter (principal); M54.50 Low back pain, unspecified; M54.6 Pain in thoracic spine; R79.89 Other specified abnormal findings of blood chemistry; K85.90 Acute pancreatitis without necrosis or infection, unspecified; V49.40XA Driver injured in collision with unspecified motor vehicles in traffic accident, initial encounter
CPT/HCPCS: 96361; 93005; 85025; 81001; 36415; 83735; 84484; 83690; 80053; 70450; 72125; 71260; 74177; 96375; 96374; 99284; 82077; Q9967; J2405; J7030